=== PATIENT | male | born 1940 | race Caucasian/White ===

== ENCOUNTER 2020-05-14 10:35 | Emergency (ER) | payer OTHER ==
[~2020-05-14 10:35] MED LIST: ATOR10TA70 PO; ISOS30TA6 PO; METO25TA6 PO; METO50TA17 PO; NITR0.4T SL; OMEP40CA13 PO; TEMA15CA PO
[2020-05-14 10:55] VITALS: BP 137/88
== END 2020-05-14 12:36 | disposition home or self-care (01) ==
LOC: ER 10:36
DX: M25.511 Pain in right shoulder (principal); I10 Essential (primary) hypertension; G89.29 Other chronic pain; Z86.69 Personal history of other diseases of the nervous system and sense organs; Z98.890 Other specified postprocedural states; Z79.899 Other long term (current) drug therapy
CPT/HCPCS: 73060; 99283

== ENCOUNTER 2020-07-27 17:26 | Emergency (ER) | payer OTHER, MEDICARE ==
[~2020-07-27] VITALS: Ht 172.7 cm; Wt 115.9 kg
[2020-07-27] MEDS ORDERED: acetaminophen 325mg tablet PO STA (17:45)
[2020-07-27 18:02] LABS: BASOPHILS % (AUTO) 0.2 % (0-1); EOSINOPHILS % (AUTO) 0.1 % (0-6); HEMATOCRIT 44.4 % (42.0-52.0); HEMOGLOBIN 15.3 g/dl (14.0-17.9); LYMPHOCYTES # (AUTO) 0.9 X10'3 (1.1-4.8); LYMPHOCYTES % (AUTO) 18.3 % (21-51); MEAN CORPUSCULAR HEMOGLOBIN 33.7 PG (27.0-31.0); MEAN CORPUSCULAR HGB CONC 34.4 g/dL (33.0-36.5); MEAN CORPUSCULAR VOLUME 97.8 FL (78-98); MEAN PLATELET VOLUME 6.7 FL (7.4-10.4); MONOCYTES # (AUTO) 0.8 X10'3 (0-0.9); MONOCYTES % (AUTO) 16.6 % (2-12); NEUTROPHILS # (AUTO) 3.1 X10'3 (1.8-7.7); NEUTROPHILS % (AUTO) 64.8 % (42-75); PLATELET COUNT 140 X10'3 (140-440); RED BLOOD COUNT 4.54 X10'6 (4.70-6.10); RED CELL DISTRIBUTION WIDTH 13.6 % (11.5-14.5); WHITE BLOOD COUNT 4.8 X10'3 (4.5-11.0)
[2020-07-27 18:26] LABS: C-REACTIVE PROTEIN 4.14 MG/DL (0.0-0.5)
[2020-07-27 18:37] LABS: ALANINE AMINOTRANSFERASE 42 U/L (12-78); ALBUMIN 3.3 G/DL (3.4-5.0); ALBUMIN/GLOBULIN RATIO 0.8 (1.1-1.5); ALKALINE PHOSPHATASE 69 IU/L (46-116); ANION GAP 11 (8-16); ASPARTATE AMINO TRANSFERASE 37 U/L (10-37); BILIRUBIN,TOTAL 0.8 MG/DL (0.1-1.0); BLOOD UREA NITROGEN 15 MG/DL (7-18); BUN/CREATININE RATIO 16.7 (5.4-32.0); CALCIUM 8.2 MG/DL (8.5-10.1); CHLORIDE 101 MMOL/L (99-107); GLUCOSE 100 MG/DL (70-104); MAGNESIUM 1.8 MG/DL (1.5-2.4); SODIUM 137 MMOL/L (135-145); TOTAL CARBON DIOXIDE 24.6 MMOL/L (24-32); TOTAL PROTEIN 7.2 G/DL (6.4-8.2); eGFR 81 ML/MIN
[2020-07-27 18:59] LABS: ANISOCYTOSIS FEW; PLATELET ESTIMATE NORMAL; TOTAL CELLS COUNTED 100; TOXIC GRANULATION 2+
[2020-07-27 20:29] LABS: D-DIMER 0.32 MG/L FEU (0-0.50)
[2020-07-27 20:40] LABS: PARTIAL THROMBOPLASTIN TIME 30 SECONDS (22-32)
[2020-07-27 20:59] LABS: TROPONIN I < 0.04 NG/ML (0.0-0.05)
[2020-07-27] MEDS ORDERED: BAMLANIVIMAB INJECTION 700 MG in normal saline 250ml IV soln 180 ML IV ONE (21:20)
[2020-07-27] MEDS ORDERED: BAMLANIVIMAB INJECTION 700 MG in normal saline 250ml IV soln 250 ML IV ONE (21:25)
[2020-07-27] MEDS ORDERED: dexamethasone 4mg/ml inj IV STA (21:35)
[2020-07-27] MEDS ORDERED: azithromycin 250mg tablet PO ONE (21:35)
[2020-07-27] MEDS ORDERED: AZIT-31 PO (21:39)
[2020-07-27] MEDS ORDERED: DEXA6TAB6 PO (21:39)
--- NOTE | 2020-07-28 02:56 | NUR ---
pt awaiting transport from [facility], expected around 5 am. Pt is 92% right now on RA. VSS.
--- NOTE | 2020-07-28 06:04 | NUR ---
pt updated that [facility] to be here around 0645. pt reports nausea and some abd pain. States he has been having the abd pain over a week. [facility] at his visit with [facility] and he states "they just stuck that thing up my nose and sent me here". I reported to him there is nothing in the MD notes about his abd pain.
--- NOTE | 2020-07-28 06:08 | NUR ---
[facility]
[2020-07-28] MEDS ORDERED: ondansetron/PF 4mg/2ml inj IV ONE (06:10)
[2020-07-28 06:30] VITALS: BP 132/75
--- NOTE | 2020-07-28 07:00 | NUR ---
[facility] here but will not take pt home due to pt being +covid. Non-emergent EMS will be arranged.
== END 2020-07-28 09:18 | disposition home or self-care (01) ==
LOC: ER 17:27
DX: U07.1 COVID-19 (principal); J12.89 Other viral pneumonia; I48.91 Unspecified atrial fibrillation; I10 Essential (primary) hypertension; G89.29 Other chronic pain; Z86.69 Personal history of other diseases of the nervous system and sense organs; Z72.89 Other problems related to lifestyle; Z60.2 Problems related to living alone; Z98.890 Other specified postprocedural states; Z79.899 Other long term (current) drug therapy
CPT/HCPCS: 36415; 71045; 80053; 82728; 83605; 83615; 83735; 84145; 84484; 85007; 85025; 85379; 85384; 85610; 85730; 86140; 87040; 93005; 96374; 96375; 99291; J1100; J2405; J7050; M0239; 96365; 99285

== ENCOUNTER 2024-12-01 19:41 | Inpatient (IN) | payer OTHER, MEDICARE ==
[~2024-12-01] VITALS: Ht 175.3 cm; Wt 119.5 kg
[~2024-12-01 19:41] MED LIST changes: +ACET325C6 PO; +ASPI81TA52 PO; +CALC300T4 PO; +CHOL200074 PO; +FAMO20TA8 PO; +HYDR-3972 PO; +IPRA3AMP31 NEB; -ISOS30TA6 PO; +LORA-268 PO; -METO25TA6 PO; -METO50TA17 PO; +METO50TA7 PO; +MORP20CA17 PO; -OMEP40CA13 PO; +ONDA-103 PO; +SENN-360 PO; -TEMA15CA PO; +TRAZ-251 PO
--- NOTE | 2024-12-01 19:47 | ELECTROCARDIOGRAPH REPORT ---
[facility] Test Date: 2024-12-01 Test Time: 19:46:03 Pat Name: NATALI HOUGH Department: [facility]- Patient ID: [id number] Room: [place] [id number] Gender: M Bond Runner: : 1940 Requested By: REJI DE LEON Order Number: [id number] Reading MD: Dr. Dax Goodman Measurements Intervals [place] Rate: 154 P: 0 SC: 99 QRS: -81 QRSD: 111 T: 98 QT: 274 QTc: 439 Interpretive Statements Supraventricular tachycardia Multiform ventricular premature complexes Left anterior fascicular block Anterior infarct, old Repolarization abnormality, prob rate related Baseline wander in lead(s) V3 Electronically Signed On 12-02-2024 15:46:[address] Dax Goodman Please click the below link to view image of tracing.
--- NOTE | 2024-12-01 20:00 | Physician Documentation ---
History of Present Illness ~ Chief Complaint: See Chief Complaint Stated Complaint: SEPSIS Time Seen by MD: 19:50 Primary Medical Doctor: [facility] HPI Patient presents for mobile rehab for lethargy, abdominal pain, fever. Patient was DNR DNI. It was reported that has some degree of imaging was performed with concern of small-bowel obstruction at sending facility. EMS reports watery stools. Patient it was responding appropriately but it was certainly lethargic. Poor historian. History of atrial fibrillation with hypotension and tachycardia associated with AFib RVR as was well as fever upon arrival. Medication Reconciliation Allergies: Coded Allergies: No Known Allergies (Unverified , 08/03/23) Scheduled Aspirin (Aspirin EC), 1 TAB PO DAILY, (Reported) Atorvastatin Calcium (Atorvastatin Calcium), 1 TAB PO HS, (Reported) Cholecalciferol (Vitamin D), 1 CAP PO DAILY, (Reported) Cranberry Fruit (Cranberry), 2 TAB PO HS, (Reported) Duloxetine Hcl* (Cymbalta*), 1 CAP PO DAILY, (Reported) Famotidine (Famotidine), 1 TAB PO HS, (Reported) Ipratropium/Albuterol Sulfate (Duoneb 2.5-0.5 Mg/3 Ml Soln), 1 VIAL NEB Q12H, (Reported) Nitroglycerin (Nitrostat), 1 TAB SL UD, (Reported) Omeprazole (Omeprazole), 1 CAP PO HS, (Reported) Prednisone* (Prednisone*), 2 TAB PO DAILY, (Reported) Sennosides (Senna), 2 TAB PO HS, (Reported) Scheduled PRN Acetaminophen (Tylenol), 2 CAP PO Q6H PRN PRN for pain, (Reported) Bisacodyl (Dulcolax), 1 SUPP RC Q24H PRN for constipation, (Reported) Calcium Carbonate* (Oscal*), 1 TAB PO Q4H PRN for indigestion/dyspepsia, (Reported) Docusate Sodium (Colace), 2 CAP PO Q12H PRN for constipation, (Reported) Hydroxyzine Hcl* (Atarax*), 1 TAB PO Q6H PRN for ITCHING, (Reported) Morphine Sulfate Tab* (Morphine Tab*), 0.5 TAB PO Q8H PRN for pain, (Reported) Ondansetron HCl (Ondansetron HCl), 1 TAB PO Q6H PRN PRN for nausea/vomiting, (Reported) Polyethylene Glycol 3350 (Miralax), 17 GM PO PRN PRN for constipation, (Reported) Discontinued Medications Calcium Carbonate* (Tums*), 1,000 MG PO Q6H, (Reported) Discontinued Reason: patient no longer taking Cholecalciferol (Vitamin D3) (Vitamin D3), 1 CAP PO DAILY, (Reported) Discontinued Reason: patient no longer taking Hydrocodone Bit/Acetaminophen (Hydrocodon-Acetaminophn 10-325 tablet), 2 TABLET PO Q6H PRN for moderate or severe pain 4-10, (Reported) Discontinued Reason: patient no longer taking Lorazepam (Ativan), 1 TAB PO Q12H PRN PRN for anxiety, (Reported) Discontinued Reason: patient no longer taking Metoprolol Succinate* (Toprol Xl*), 1 TAB PO DAILY, (Reported) Discontinued Reason: patient no longer taking Morphine Sulfate (Morphine Sulfate ER), 1 CAP PO DAILY, (Reported) Discontinued Reason: patient no longer taking Trazodone HCl (Trazodone HCl), 0.5 TAB PO HS, (Reported) Discontinued Reason: patient no longer taking Past Medical History Past Medical History: Seizures, Atrial Fibrillation, High Cholesterol, Hypertension, COPD, Sleep Apnea, Pancreatitis, Chronic Pain, Chronic Back Pain Past Surgical History: orthopedic surgeries, other Other Past Surgical History: Angiogram, Marci Placement Patient History: (CAD) Coronary arteriosclerosis FATHER, Onset:60 years & older (CHF) Congestive heart failure FATHER, Onset:60 years & older (CVA) Cerebrovascular accident MOTHER, Onset:60 years & older Alzheimer's disease MOTHER, Onset:60 years & older Other Past Family History: NONCONTRIBUTORY Alcohol Use: Sober Drug Use: none Lives with: Alone Lives In: Home Occupation: retired Review of Systems ROS Review of systems limited secondary to patient's clinical status Physical Exam Vital Signs: Temperature: 101.3, Source: Axillary, Heart Rate: 71, Respiratory Rate: 19, BP: 102/67, Pulse Oximetry: 95, Weight: 92.000 Oxygen Flow Rate: 6.0 Physical Exam General: Patient is awake, lethargic, responds to questions with yes or no only. Does endorse pain but it was not localized Head: Normocephalic and atraumatic. Eyes: Conjunctival normal. EOMI. PERRL. ENT: Mucous membranes moist. Neck: Supple, trachea is midline. Chest: Clear to auscultation bilaterally without rales, rhonchi, or wheezes. There is no accessory muscle use or retractions. Cardiac: Tachycardic irregular without murmurs, gallops, or rubs. Abd: Soft, nondistended, nontender, with normoactive bowel sounds. No guarding, rebound, or rigidity. Progress Results/Orders Results/Orders Orders - JESE DURAN MD Chest,Single View (12/01/24 20:01) Monitor (12/01/24 19:43) Saline Lock (12/01/24 19:43) Oxygen (12/01/24 19:43) Electrocardiogram (12/01/24 19:43) Straight Cath For Urine Sample (12/01/24 19:43) Ct Chest Abdomen Pelvis (12/01/24 20:40) Page Hospitalist (12/01/24 23:11) Fill Out Med Reconciliation (12/01/24 23:11) Completed Orders - JESE DURAN MD Chest,Single View (12/01/24 20:01) Cbc/Diff (12/01/24 19:43) PBNP (12/01/24 19:43) Electrocardiogram (12/01/24 19:43) CMP (12/01/24 19:43) Hs Troponin I W Calculations (12/01/24 19:43) Hs Troponin I W Calculations (12/01/24 21:43) Hs Troponin I W Calculations (12/01/24 22:43) Culture Blood (12/01/24 19:43) Procalcitonin (12/01/24 19:43) Lacticsepsis (12/01/24 19:43) Normal Saline 1000ml (Sodium Chloride 10 (12/01/24 20:00) Acetaminophen 1,000mg/100ml Iv (Ofirmev (12/01/24 20:00) Ct Chest Abdomen Pelvis (12/01/24 20:40) Ceftriaxone/X7s-[place] 1gm (Rocephin 1 (12/01/24 20:05) Man Diff (12/01/24 19:52) C Diff Toxin (12/01/24 20:19) Normal Saline 1000ml (Sodium Chloride 10 (12/01/24 20:35) MG (12/01/24 19:52) Ua W/Microscopic, Cult If Ind (12/01/24 20:45) Cult Urine + [place] Ct (12/01/24 21:14) Potassium Cl 40meq/1/2ns 520ml ([place] (12/01/24 21:21) Lactic,2hr (12/01/24 21:33) Piperacillin/Tazo 3.375gm/50ml (Zosyn 3. (12/01/24 23:15) Vancomycin Inj. (Vancomycin Iv) (12/01/24 23:22) Hgb A1c (12/01/24 19:52) Laboratory Tests Test 12/01/24 19:52 12/01/24 20:45 12/01/24 21:34 12/01/24 21:38 White Blood Count 40.4 *H Red Blood Count 5.12 Hemoglobin 16.0 Hematocrit 48.8 Mean Corpuscular Volume 95.5 Mean Corpuscular Hemoglobin 31.2 H Mean Corpuscular Hemoglobin Concent 32.7 L Red Cell Distribution Width 14.8 H Platelet Count 233 Mean Platelet Volume 8.4 Neutrophils (%) (Auto) 94.3 H Lymphocytes (%) (Auto) 1.2 L Monocytes (%) (Auto) 4.0 Eosinophils (%) (Auto) 0 Basophils (%) (Auto) 0.5 Neutrophils # (Auto) 38.1 H Lymphocytes # (Auto) 0.5 L Monocytes # (Auto) 1.6 H Eosinophils # (Auto) 0.0 Basophils # (Auto) 0.2 CBC Comment Differential Total Cells Counted 100 Neutrophils % (Manual) 92.0 H Band Neutrophils % 2.0 Lymphocytes % (Manual) 1.0 L Monocytes % (Manual) 4.0 Basophils % (Manual) 1.0 Platelet Estimate Normal Red Blood Cell Morphology Normal Basophilic Stippling Sodium Level 144 Potassium Level 2.7 *L Chloride Level 103 Carbon Dioxide Level 25.4 Anion Gap 16 Blood Urea Nitrogen 43 H Creatinine 2.20 H Estimated GFR/1.73 m2 29 BUN/Creatinine Ratio 19.5 Glucose Level 121 H Hemoglobin A1c 5.3 Lactic Acid Level 9.0 *H 6.7 *H Calcium Level 10.1 Magnesium Level 2.0 Total Bilirubin 1.5 H Aspartate Amino Transf (AST/SGOT) 41 H Alanine Aminotransferase (ALT/SGPT) 54 Alkaline Phosphatase 257 H Troponin I High Sensitivity 577 *H 430 *H Pro-B-Type Natriuretic Peptide 5610 H Total Protein 7.4 Albumin 2.7 L Globulin 4.7 H Albumin/Globulin Ratio 0.6 L Procalcitonin 44.23 H Chemistry Comments Urine Specimen Description Cln catch midstream Urine Color Yellow Urine Clarity Cloudy Urine pH 6.0 Urine Specific [place] >=1.030 Urine Protein >=300 H Urine Glucose (UA) Negative Urine Ketones Trace H Urine Occult Blood Small Urine Nitrite Negative Urine Bilirubin Negative Urine Urobilinogen 4.0 H Urine Leukocyte Esterase Negative Urine RBC 3-10 Urine WBC 5-10 H Urine Squamous Epithelial Cells None seen Urine Bacteria 1+ Urine Mucus Many Urine Culture Indicated Indicated Volume Urine Centrifuged 10 ml Urine Comment Troponin I High Sens Percent Delta 25 Troponin I Hi Sens Absolute Change -147 Test 12/01/24 22:45 Troponin I High Sensitivity 448 *H Troponin I High Sens Percent Delta 4 Troponin I Hi Sens Absolute Change 18 Microbiology Date/Time Source Procedure Growth Status 12/01/24 21:14 Urine Clean Catch Midstream Urine Culture - Final NO GROWTH AFTER 2 DAYS Complete EKG/XRAY/CT/US/VASC/MRI EKG : Additional Comment EKG interpreted by myself shows time of 1946, rate 154, AFib RVR, left axis deviation, nonspecific ST-T changes Chest X-Ray : Additional Comments Exam: CHEST,SINGLE VIEW Clinical History CP Comparison None Technique: A single AP/PA chest radiograph was provided for review. Without Contrast NATALI HOUGH, [id number] FINDINGS: Lungs: Hypoexpanded lungs without pneumothorax. There is no significant pleural effusion. Heart: Enlarged. Mediastinum: Within normal limits. Vasculature: Pulmonary edema. Tubes/lines: None. Osseous structures: No evidence for acute fracture. Surgical clips in the right upper quadrant, consistent with prior cholecystectomy. IMPRESSION: Low lung volumes. Cardiomegaly. Pulmonary edema. This report was electronically signed by Jay Muse MD on 12/01/2024 9:22:[address] : Impression Exam: CT CHEST ABDOMEN PELVIS Clinical History fever, abd pain Comparison CT ABD/PEL on 08/04/2023, 748 images. Technique: Contiguous axial CT images of the chest, abdomen, and pelvis without intravenous contrast administration. Coronal and sagittal reformation was performed. All CT scans at this medical facility are performed using dose modulation techniques as appropriate to a performed exam including the following: Automated exposure control was utilized; adjustment of the mA and/or kV according to patient size; and use of iterative reconstruction technique. All CT studies are reported to the Dose Index Registry of the [employer]. Without Contrast Radiation Dose: CTDI (mGy): 26.09 31.39; DLP (mGy-cm): 2561.08 NATALI HOUGH, [id number] Findings: Both lung bases show moderate atelectasis No pneumothorax or pleural effusion is present. The trachea and central bronchi are patent. The heart is not enlarged. The coronary arteries show mild calcified atherosclerosis. No pericardial effusion or lymphadenopathy is present. The thoracic aorta shows normal course and diameter. The lack of intravenous contrast limits the evaluation of the solid organs. The liver, gallbladder, spleen, both adrenal glands, both kidneys, and pancreas show normal size and shape. No hydronephrosis or ureteral stone is present. The stomach, small bowel, and colon show normal caliber and wall thickness. The appendix is normal. No free air, free fluid, inflammatory changes, or lymphadenopathy is in the abdomen or pelvis. The abdominal aorta shows normal course and diameter. The urinary bladder is decompressed and shows mild diffuse wall thickening. 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 No acute fracture or bony destructive lesion is in the imaged portion of the skeleton. Impression: 1. Mild urinary bladder wall thickening may be due to incomplete distention or cystitis. Please correlate clinically. 2. Overall stable probable left pelvic old healed fractures and left hip degenerative changes. 3. No other acute abnormality. This report was electronically signed by Dorian Lerner MD on 12/01/2024 10:45:22 PM. Medical Decision Making Findings Patient presented to the emergency room tachycardic and hypotensive. Differentials included but are not limited to sepsis, dehydration, acute kidney injury, metabolic encephalopathy therefore emergent labs and imaging indicated. Labs significant for elevated troponins and significant lactic acidosis. IV fluids initiated. It is thought that elevated troponins likely secondary to sepsis. EKG reassuring for no ST elevation. Significantly low hypo kalemia and has been replaced IV. Unknown source for patient's sepsis. IV antibiotics initiated as well as 30 milliliters/kilogram of IV fluids. Patient's heart rate is responding to antipyretics and IV fluids. Patient remains hypotensive and waste water plant operator was consulted however waste water plant operator does not feel patient requires ICU at this time. Departure Impression: Primary Impression: Sepsis Additional Impressions: Elevated troponin Lactic acidosis Metabolic encephalopathy Referrals: NO PRIMARY CARE PROVIDER (PCP) Critical Care Note Total Time (mins): 109 Critical Care Note The very real possibility of a deterioration of this patient's condition required the highest level of my preparedness for sudden, emergent intervention. I provided critical care services, which included medication orders, frequent reevaluations of the patient's condition and response to treatment, ordering and reviewing test results, and discussing the case with various consultants. Excludes time spent performing separately billable procedures. The critical care time associated with the care of the patient was 109 minutes not counting procedures Signature Scribe Signature: No scribe Attestation: The note accurately reflects work and decisions made by me.Jese Duran MD 12/07/24 18:24 JESE DURAN MD December 01, 2024 20:00
[2024-12-01 20:06] LABS: BASOPHILS # (AUTO) 0.2 X10'3 (0-0.2); BASOPHILS % (AUTO) 0.5 % (0-1); EOSINOPHILS % (AUTO) 0 % (0-6); HEMATOCRIT 48.8 % (42.0-52.0); LYMPHOCYTES # (AUTO) 0.5 X10'3 (1.1-4.8); LYMPHOCYTES % (AUTO) 1.2 % (21-51); MEAN CORPUSCULAR HEMOGLOBIN 31.2 PG (27.0-31.0); MEAN CORPUSCULAR HGB CONC 32.7 g/dL (33.0-36.5); MEAN CORPUSCULAR VOLUME 95.5 FL (78-98); MEAN PLATELET VOLUME 8.4 FL (7.4-10.4); MONOCYTES # (AUTO) 1.6 X10'3 (0-0.9); NEUTROPHILS # (AUTO) 38.1 X10'3 (1.8-7.7); NEUTROPHILS % (AUTO) 94.3 % (42-75); PLATELET COUNT 233 X10'3 (140-440); RED BLOOD COUNT 5.12 X10'6 (4.70-6.10); RED CELL DISTRIBUTION WIDTH 14.8 % (11.5-14.5)
[2024-12-01] MEDS: acetaminophen 1,000mg/100ml IV 100 ML IV ONE (20:12)
[2024-12-01] MEDS: normal saline 1000ml 1,000 ML IV ONE (20:13)
[2024-12-01 20:16] LABS: WHITE BLOOD COUNT 40.4 X10'3 (4.5-11.0)
[2024-12-01 20:25] LABS: ALANINE AMINOTRANSFERASE 54 U/L (12-78); ALBUMIN 2.7 G/DL (3.4-5.0); ALBUMIN/GLOBULIN RATIO 0.6 (1.1-1.5); ALKALINE PHOSPHATASE 257 IU/L (46-116); ANION GAP 16 (8-16); ASPARTATE AMINO TRANSFERASE 41 U/L (10-37); BILIRUBIN,TOTAL 1.5 MG/DL (0.1-1.0); BLOOD UREA NITROGEN 43 MG/DL (7-18); BUN/CREATININE RATIO 19.5 (10.0-20.0); CALCIUM 10.1 MG/DL (8.5-10.1); CHLORIDE 103 MMOL/L (99-107); GLUCOSE 121 MG/DL (70-104); PRO BRAIN NATRIURETIC PEPTIDE 5610 PG/ML (0-450); SODIUM 144 MMOL/L (135-145); TOTAL CARBON DIOXIDE 25.4 MMOL/L (24-32); TOTAL PROTEIN 7.4 G/DL (6.4-8.2); eCRCL 25 ML/MIN; eGFR 29 ML/MIN
[2024-12-01 20:33] LABS: POTASSIUM 2.7 MMOL/L (3.5-5.1)
[2024-12-01 20:41] LABS: PLATELET ESTIMATE NORMAL; TOTAL CELLS COUNTED 100
[2024-12-01 21:00] LABS: BILIRUBIN,URINE NEGATIVE (Neg); CLARITY,URINE CLOUDY (Clear); COLOR,URINE YELLOW (Yellow); GLUCOSE, URINE NEGATIVE (Neg); KETONES,URINE TRACE mg/dl (Neg); LEUKOCYTE ESTERASE ,URINE NEGATIVE (Neg); OCCULT BLOOD,URINE SMALL (Neg); PROTEIN,URINE >=300 mg/dl (Neg)
[2024-12-01] MEDS: normal saline 1000ML IV soln IVB ONE (21:03)
[2024-12-01] MEDS: CefTRIAXone/D5W-Rocephin 1gm 50 ML IV ONE (21:03)
[2024-12-01 21:07] LABS: NITRITES, URINE NEGATIVE (Neg); UA COLLECTION TYPE CLN CATCH MIDSTREAM
[2024-12-01 21:13] LABS: BACTERIA,URINE 1+ /HPF (Neg); MUCUS STRANDS MANY /LPF (Neg); SQUAMOUS EPITHELIAL CELL,UR NONE SEEN /LPF (FEW)
--- NOTE | 2024-12-01 21:24 | RADIOLOGY REPORT ---
Clinical History CP Comparison None Technique: A single AP/PA chest radiograph was provided for review. Without Contrast NATALI HOUGH, [id number] FINDINGS: Lungs: Hypoexpanded lungs without pneumothorax. There is no significant pleural effusion. Heart: Enlarged. Mediastinum: Within normal limits. Vasculature: Pulmonary edema. Tubes/lines: None. Osseous structures: No evidence for acute fracture. Surgical clips in the right upper quadrant, consistent with prior cholecystectomy. IMPRESSION: Low lung volumes. Cardiomegaly. Pulmonary edema. This report was electronically signed by Jay Muse MD on 12/01/2024 9:22:03 PM.
[2024-12-01] MEDS: potassium Cl 40MEQ/1/2NS 520ml 520 ML IV SCH (21:36)
--- NOTE | 2024-12-01 22:48 | RADIOLOGY REPORT ---
Clinical History fever, abd pain Comparison CT ABD/PEL on 08/04/2023, 748 images. Technique: Contiguous axial CT images of the chest, abdomen, and pelvis without intravenous contrast administration. Coronal and sagittal reformation was performed. All CT scans at this medical facility are performed using dose modulation techniques as appropriate t o a performed exam including the following: Automated exposure control was utilized; adjustment of th e mA and/or kV according to patient size; and use of iterative reconstruction technique. All CT studies are reported to the Dose Index Registry of the [employer]. Without Contrast Radiation Dose: CTDI (mGy): 26.09 31.39; DLP (mGy-cm): 2561.08 NATALI HOUGH, [id number] Findings: Both lung bases show moderate atelectasis No pneumothorax or pleural effusion is present. The trache a and central bronchi are patent. The heart is not enlarged. The coronary arteries show mild calcified atherosclerosis. No pericardi al effusion or lymphadenopathy is present. The thoracic aorta shows normal course and diameter. The lack of intravenous contrast limits the evaluation of the solid organs. The liver, gallbladder, spleen, both adrenal glands, both kidneys, and pancreas show normal size and shape. No hydronephrosis or ureteral stone is present. The stomach, small bowel, and colon show normal caliber and wall thickness. The appendix is normal. No free air, free fluid, inflammatory changes, or lymphadenopathy is in the abdomen or pelvis. The abdominal aorta shows normal course and diameter. The urinary bladder is decompressed and shows mild diffuse wall thickening. 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 No acute fracture or bony destructive lesion is in the imaged portion of the [facility]. Impression: 1. Mild urinary bladder wall thickening may be due to incomplete distention or cystitis. Please cor relate clinically. 2. Overall stable probable left pelvic old healed fractures and left hip degenerative changes. 3. No other acute abnormality. This report was electronically signed by Dorian Lerner MD on 12/01/2024 10:45:22 PM.
[2024-12-01] MEDS ORDERED: vancomycin inj 1,000 MG in normal saline 250ml IV soln 250 ML IV STA (23:11)
[2024-12-01] MEDS: piperacillin/tazo 3.375gm/50ml 50 ML IV ONE (23:23)
[2024-12-01] MEDS: vancomycin inj. 750 MG in normal saline 250ml IV soln 250 ML IV STA (23:36)
[2024-12-02] VITALS (9 sets, daily range): BP systolic 94–120; BP diastolic 58–69; PULSE 81–87; RESP 16–20; TEMP 97.7–98.4; O2SAT 93–98
[2024-12-02] MEDS ORDERED: acetaminophen 325mg tablet PO PRN (00:30)
[2024-12-02] MEDS ORDERED: magnesium Cl slow-release 64mg tablet PO PRN (00:30)
[2024-12-02] MEDS ORDERED: magnesium sulf-water 4G/100mL 100 ML IV PRN (00:30)
[2024-12-02] MEDS ORDERED: mag hydrox/Alum hydrox/simeth 30ml oral suspension PO PRN (00:30)
[2024-12-02] MEDS ORDERED: potassium Cl 20 mEq SR tablet PO PRN (00:30)
[2024-12-02] MEDS ORDERED: magnesium sulf-water 2g/50mL 50 ML IV PRN (00:30)
[2024-12-02] MEDS ORDERED: magnesium hydroxide 30ml (MOM) UD suspension PO PRN (00:30)
[2024-12-02] MEDS ORDERED: BISA10SU60 RC (00:56)
[2024-12-02] MEDS ORDERED: CHOL10006 PO (00:56)
[2024-12-02] MEDS ORDERED: POLY119P2 PO (00:56)
[2024-12-02] MEDS ORDERED: DOCU-148 PO (00:56)
[2024-12-02] MEDS ORDERED: HYDR-3686 PO (00:56)
[2024-12-02] MEDS ORDERED: PRED5TAB PO (00:56)
[2024-12-02] MEDS ORDERED: OSC500T PO (00:56)
[2024-12-02] MEDS ORDERED: CRAN450T9 PO (00:56)
[2024-12-02] MEDS ORDERED: MORP30TA PO (00:56)
[2024-12-02] MEDS ORDERED: DULO-31 PO (00:56)
[2024-12-02] MEDS ORDERED: OMEP20CA16 PO (00:56)
[2024-12-02] MEDS: PERFLUTREN PROTEIN-A MICROSPHR (Optison) 0.22 MG/ML 3ML VIAL IV ONE (01:02)
[2024-12-02] MEDS: normal saline 1000ml 1,000 ML IV SCH (01:10)
--- NOTE | 2024-12-02 01:10 | HISTORY AND PHYSICAL-Residence ---
History & Physical Providers to CC Resident Creating Document: DALY MONTE, RES ~ History of Present Illness Primary Medical Doctor: [facility] Reason for Admit\Complaint: Sepsis History of Present Illness An 84-year-old male presented with lethargy, abdominal pain and fever. Patient is confused. History is obtained from previous records and ED physician's note. He comes from [facility]. EMS reported watery stools. He presented with fever, hypotension and tachyarrhythmia in 150s. His heart rate improved with IV fluids and Tylenol. Past medical history significant for AFib, hypertension, sleep apnea, history of COVID, CAD, seizures, hyperlipidemia, chronic back pain, GERD, anxiety, depression, sleep apnea, COPD. Allergies: Coded Allergies: No Known Allergies (Unverified , 08/03/23) Home Medications Home Medications Active Reported Miralax (Polyethylene Glycol 3350) 17 Gram/Dose Powder 17 Gm PO PRN PRN dissolve in water Atarax* (Hydroxyzine HCl) 25 Mg Tablet 1 Tab PO Q6H PRN Morphine Tab* (Morphine Sulfate) 30 Mg Tablet 0.5 Tab PO Q8H PRN 5 Days Prednisone* (Prednisone) 5 Mg Tablet 2 Tab PO DAILY Cymbalta* (Duloxetine HCl) 30 Mg Capsule.dr 1 Cap PO DAILY 30 Days Cranberry (Cranberry Fruit) 450 Mg Tablet 2 Tab PO HS 30 Days Dulcolax (Bisacodyl) 10 Mg Supp.rect 1 Supp RC Q24H PRN 10 Days Colace (Docusate Sodium) 100 Mg Capsule 2 Cap PO Q12H PRN 30 Days Vitamin D (Cholecalciferol) 1,000 Unit Capsule 1 Cap PO DAILY 30 Days Oscal* (Calcium Carbonate) 500 Mg Tablet 1 Tab PO Q4H PRN 30 Days Omeprazole 20 Mg Capsule.dr 1 Cap PO HS 30 Days Duoneb 2.5-0.5 Mg/3 Ml Soln (Ipratropium/Albuterol Sulfate) 0.5 Mg-3 Mg (2.5 Mg Base)/3 Ml Ampul.neb 1 Vial NEB Q12H Tylenol (Acetaminophen) 325 Mg Capsule 2 Cap PO Q6H PRN PRN NEEDED FOR PAIN Senna (Sennosides) 8.6 Mg Tablet 2 Tab PO HS Ondansetron HCl 4 Mg Tablet 1 Tab PO Q6H PRN PRN Famotidine 20 Mg Tablet 1 Tab PO HS Aspirin EC (Aspirin) 81 Mg Tablet.dr 1 Tab PO DAILY Nitrostat (Nitroglycerin) 0.4 Mg Tab.subl 1 Tab SL UD Atorvastatin Calcium 10 Mg Tablet 1 Tab PO HS 30 Days Past Medical History Past Medical History AFib, hypertension, sleep apnea, history of COVID, CAD, seizures, hyperlipidemia, chronic back pain, GERD, anxiety, depression, sleep apnea, COPD Past Surgical History Surgical History Comment Unknown Medication history: Aspirin 81 mg daily Atorvastatin 10 mg daily Diltiazem ER 180 mg once daily Duloxetine Hydroxyzine Omeprazole Prednisone 10 mg once daily for allergic dermatitis Family History Family History: (CAD) Coronary arteriosclerosis FATHER, Onset:60 years & older (CHF) Congestive heart failure FATHER, Onset:60 years & older (CVA) Cerebrovascular accident MOTHER, Onset:60 years & older Alzheimer's disease MOTHER, Onset:60 years & older Past Social History Social History Comment Patient comes from [facility]. PMD- Dr. Kane King Patient's POLST papers at bedside. DNR/DNI. Smoking: Quit greater than 1 year Alcohol Use: Sober Drug Use: None Lives with: Alone Lives In: Home Occupation: retired ROS ROS Unable to obtain as the patient is confused. Exam Vitals: Vital Signs Date Time Temp Pulse Resp B/P (MAP) Pulse Ox O2 Delivery O2 Flow Rate FiO2 12/02/24 00:35 99.4 94 22 86/59 (68) 97 5.0 General: Elderly male, confused, not in acute distress Head: Normocephalic with an atraumatic Eyes: Pupils- 3mm, reacting to light, conjunctiva- anicteric Nose and throat: No polyps, septum- normal, red lips and tongue Neck: Supple, no lymphadenopathy, no carotid bruit Respiratory: Mild bibasilar crackles heard Cardiac: S1-S2 heard, rhythm irregular, no gallop/murmur Abdomen: non distended, no tenderness, no organomegaly, bowel sounds - heard Extremities: no clubbing, no pedal edema, no deformities, cold feet, warm hands Skin: warm and dry, no rash, no purpura Neuro: Could not be examined Diagnostic Data Last Recorded Lab Results: 12/01/24195112/01/241951 Additional Plan An 84-year-old male with past medical history of COVID, AFib, UTI sepsis, depression, anxiety, hypertension, hyperlipidemia, chronic back pain, GERD, was brought to the ED with hypotension, fever and confusion. He is being admitted into the hospital for further evaluation and management. Plan: Septic shock Unknown etiology Chest x-ray clear, no wounds on body, urinalysis negative for leukocyte esterase and nitrites. However 1+ bacteria was found. Follow up with cultures. Patient has a history of UTI with Klebsiella. Follow up with blood cultures. Follow up with echocardiogram for evidence of any vegetations. The EMS reported the patient having watery stools. Unreliable. No bowel movements in the hospital. Consider testing for C.diff if he has watery stools. WBC 40.4, procalcitonin 44.23, lactic acid 9.0 to 6.7. Temperature 101.3. Started the patient on piperacillin/tazobactam 3.375 g thrice daily and vancomycin. Blood pressure currently 89/58 with a map above 65 mmHg. He received 3 L of NS boluses in the ER. Continue NS at 100 mL/hour. Monitor urine output. Tachyarrhythmia likely SVT P waves present. Rate regular with multiple PVCs. Rate improved from 154-100. 2 g of magnesium ordered. Continue potassium replacement. Continue telemetry monitoring. Elevated troponins Likely demand ischemia Downtrending troponins. Continue to monitor. Reassess after stabilization. Hypokalemia Potassium 2.7. Continue potassium replacement. Lactic acidosis Lactic acid 9.0, improved to 6.7. Continue IV fluids and reassess. ARSH versus CKD Creatinine 2.20, BUN 43, EGFR 29. Monitor urine output. Continue IV fluids and reassess. History of hypertension Hold off on any antihypertensives until the patient stabilizes. Elevated proBNP Patient tolerating IV fluids for now. He is currently on 4 L of oxygen. Mild crackles but no pedal edema. Follow up with the echocardiogram. Code Status: DNR/DNI DVT Prophylaxis: Heparin subQ Analgesia/Sedation: Acetaminophen Lines/Tubes: PIV, Holman's catheter Nutrition: NPO until bedside swallow PT: Ordered Prognosis: Guarded Disposition: We will admit the patient into [facility]. Continue telemetry monitoring, IV fluids and antibiotics. Daly Monte MD Internal Medicine Resident PGY-1 I discussed patient with resident and agree with the plan and recommendations above. Lori Tiwari MD Tele medicine Date of Service: December 02, 2024 Billing Provider: LORI TIWARI [facility] December 02, 2024 01:10 LORI TIWARI MD December 02, 2024 04:10
[2024-12-02] MEDS: magnesium sulf-water 2g/50mL 50 ML IV ONE (01:37)
[2024-12-02 01:41] LABS: INR 1.5 INR; PROTHROMBIN TIME 14.6 SECONDS (9.0-12.0)
[2024-12-02 01:52] LABS: HEMOGLOBIN A1C 5.3 % (4.5-6.2)
--- NOTE | 2024-12-02 05:09 | RADIOLOGY REPORT ---
EXAM: CT CT HEAD HISTORY: confusion COMPARISON: None TECHNIQUE: Noncontrast axial CT images of the head were performed. Sagittal and coronal reformatted i mages were obtained. This CT exam was performed using 1 or more of the following dose reduction techn iques: Automated exposure control, adjustment of the mA and/or kv according to patient size, or the u se of iterative reconstruction techniques. Radiation Dose: CTDI volume is 58.08 mGy. Dose-length product is 1045.37 mGy*cm FINDINGS: There is mild global brain atrophy. There is moderate decreased attenuation in the periventricular wh ite matter. No intracranial hemorrhage, mass, midline shift, hydrocephalus, or evidence of acute larg e vessel infarct. There is divergent optic gaze. There are postoperative changes of bilateral catarac t extraction surgery. The paranasal sinuses are clear. The bilateral mastoid air cells and middle ea r spaces are clear. 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 No cranial fracture or scalp edema. There are multiple dental caries and lucency about the roots of multiple teeth. The te eth are not fully imaged here. IMPRESSION: 1. Global brain atrophy and chronic ischemic changes without evidence of acute intracranial process. 2. Multiple dental caries and periapical pathology. Recommend outpatient dental consultation.
[2024-12-02 06:09] LABS: BASOPHILS % (AUTO) 0 % (0-1); EOSINOPHILS % (AUTO) 0 % (0-6); HEMATOCRIT 37.9 % (42.0-52.0); HEMOGLOBIN 12.6 g/dl (14.0-17.9); LYMPHOCYTES # (AUTO) 0.9 X10'3 (1.1-4.8); LYMPHOCYTES % (AUTO) 3.6 % (21-51); MEAN CORPUSCULAR HEMOGLOBIN 31.7 PG (27.0-31.0); MEAN CORPUSCULAR HGB CONC 33.1 g/dL (33.0-36.5); MEAN CORPUSCULAR VOLUME 95.7 FL (78-98); MEAN PLATELET VOLUME 8.2 FL (7.4-10.4); MONOCYTES # (AUTO) 1.2 X10'3 (0-0.9); MONOCYTES % (AUTO) 4.8 % (2-12); NEUTROPHILS # (AUTO) 23.4 X10'3 (1.8-7.7); NEUTROPHILS % (AUTO) 91.6 % (42-75); PLATELET COUNT 137 X10'3 (140-440); RED BLOOD COUNT 3.96 X10'6 (4.70-6.10); RED CELL DISTRIBUTION WIDTH 14.8 % (11.5-14.5)
[2024-12-02 06:37] LABS: WHITE BLOOD COUNT 25.5 X10'3 (4.5-11.0)
[2024-12-02 06:41] LABS: ALANINE AMINOTRANSFERASE 52 U/L (12-78); ALBUMIN 1.7 G/DL (3.4-5.0); ALBUMIN/GLOBULIN RATIO 0.5 (1.1-1.5); ALKALINE PHOSPHATASE 163 IU/L (46-116); ANION GAP 13 (8-16); ASPARTATE AMINO TRANSFERASE 45 U/L (10-37); BILIRUBIN,TOTAL 0.6 MG/DL (0.1-1.0); BLOOD UREA NITROGEN 39 MG/DL (7-18); BUN/CREATININE RATIO 28.9 (10.0-20.0); CALCIUM 8.4 MG/DL (8.5-10.1); CHLORIDE 111 MMOL/L (99-107); CREATININE 1.35 MG/DL (0.60-1.10); GLUCOSE 166 MG/DL (70-104); POTASSIUM 3.8 MMOL/L (3.5-5.1); SODIUM 145 MMOL/L (135-145); THYROID STIMULATING HORMONE 0.33 ulU/ml (0.34-4.50); TOTAL CARBON DIOXIDE 21.3 MMOL/L (24-32); TOTAL PROTEIN 5.3 G/DL (6.4-8.2); eCRCL 41 ML/MIN; eGFR 50 ML/MIN
[2024-12-02] MEDS: piperacillin/tazo 3.375gm/50ml 100 ML IV SCH (07:19)
[2024-12-02] MEDS: pantoprazole 40 MG vial IV SCH (07:20)
[2024-12-02] MEDS: heparin, porcine 5000 units/ml vial SQ SCH (07:20)
[2024-12-02] MEDS: K and/or MAG REPLACEMENT MC SCH (08:00)
[2024-12-02] MEDS ORDERED: hydrOXYzine 25 MG tablet PO PRN (08:30)
[2024-12-02 08:40] LABS: TOTAL CELLS COUNTED 100
[2024-12-02 08:42] LABS: PLATELET ESTIMATE DECREASED
[2024-12-02] MEDS: acetaminophen 325mg tablet PO PRN (10:13)
[2024-12-02] MEDS: atorvastatin 10mg tablet PO SCH (20:23)
[2024-12-02] MEDS: normal saline 1000ml 1,000 ML IV ONE ×2 (21:03→23:17)
[2024-12-02] MEDS ORDERED: VANCOMYCIN 750MG IV in NS 250 ML IV SCH (23:00)
[2024-12-02] MEDS: vancomycin/NS 1 GM ADD-VANTAGE 250 ML IV SCH (23:35)
[2024-12-03] VITALS (10 sets, daily range): BP systolic 95–113; BP diastolic 48–69; PULSE 55–99; RESP 16–31; TEMP 97–98.4; O2SAT 16–97
--- NOTE | 2024-12-03 01:54 | ELECTROCARDIOGRAPH REPORT ---
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 JUSTIN Nugent Measurements Intervals Zachary Rate: 136 P: 2 OH: 115 QRS: -65 QRSD: 113 T: 114 QT: 300 QTc: 452 Interpretive Statements supraventricular tachycardia,? Sinus Paired ventricular premature complexes Borderline IVCD with LAD Inferior infarct, old Abnormal lateral Q waves Anterior infarct, old Electronically Signed On 12-03-2024 9:37:[address] JUSTIN Nugent Please click the below link to view image of tracing.
[2024-12-03 02:39] LABS: BASOPHILS % (AUTO) 0.2 % (0-1); EOSINOPHILS % (AUTO) 0.1 % (0-6); HEMATOCRIT 36.5 % (42.0-52.0); HEMOGLOBIN 12.6 g/dl (14.0-17.9); LYMPHOCYTES # (AUTO) 0.4 X10'3 (1.1-4.8); LYMPHOCYTES % (AUTO) 1.9 % (21-51); MEAN CORPUSCULAR HEMOGLOBIN 32.1 PG (27.0-31.0); MEAN CORPUSCULAR HGB CONC 34.4 g/dL (33.0-36.5); MEAN CORPUSCULAR VOLUME 93.5 FL (78-98); MEAN PLATELET VOLUME 8.5 FL (7.4-10.4); MONOCYTES # (AUTO) 0.8 X10'3 (0-0.9); NEUTROPHILS # (AUTO) 19.7 X10'3 (1.8-7.7); NEUTROPHILS % (AUTO) 93.8 % (42-75); PLATELET COUNT 76 X10'3 (140-440); RED BLOOD COUNT 3.91 X10'6 (4.70-6.10); RED CELL DISTRIBUTION WIDTH 14.8 % (11.5-14.5)
[2024-12-03 03:12] LABS: ALANINE AMINOTRANSFERASE 118 U/L (12-78); ALBUMIN 1.7 G/DL (3.4-5.0); ALBUMIN/GLOBULIN RATIO 0.5 (1.1-1.5); ALKALINE PHOSPHATASE 324 IU/L (46-116); ANION GAP 14 (8-16); ASPARTATE AMINO TRANSFERASE 148 U/L (10-37); BILIRUBIN,TOTAL 2.7 MG/DL (0.1-1.0); BLOOD UREA NITROGEN 41 MG/DL (7-18); BUN/CREATININE RATIO 37.3 (10.0-20.0); CALCIUM 8.1 MG/DL (8.5-10.1); CHLORIDE 115 MMOL/L (99-107); CHOL/HDL RATIO 4.4 (0.00-4.99); CHOLESTEROL 53 MG/DL (0-200); FREE T4 (FREE THYROXINE) 1.26 NG/DL (0.73-1.40); GLUCOSE 93 MG/DL (70-104); HDL CHOLESTEROL 12 MG/DL (35-60); LDL CHOLESTEROL 21 MG/DL (50-100); MAGNESIUM 1.7 MG/DL (1.5-2.4); PHOSPHORUS 1.4 MG/DL (2.3-4.5); POTASSIUM 3.2 MMOL/L (3.5-5.1); SODIUM 150 MMOL/L (135-145); TOTAL CARBON DIOXIDE 21.3 MMOL/L (24-32); TOTAL PROTEIN 4.8 G/DL (6.4-8.2); TRIGLYCERIDES 112 MG/DL (20-135); eCRCL 50 ML/MIN; eGFR 64 ML/MIN
[2024-12-03] MEDS: dextrose 5%-1/2 normal saline 1,000 ML IV SCH (03:46)
[2024-12-03 03:57] LABS: PLATELET ESTIMATE DECREASED; TOTAL CELLS COUNTED 100
[2024-12-03] MEDS: potassium Cl 40MEQ/1/2NS 520ml 520 ML IV PRN (04:53)
[2024-12-03] MEDS: magnesium sulf-water 2g/50mL 50 ML IV ONE (05:00)
[2024-12-03] MEDS: piperacillin/tazo 3.375gm/50ml 50 ML IV SCH (07:56)
[2024-12-03] MEDS: duloxetine 30mg CAPSULE.DR PO SCH (08:03)
[2024-12-03] MEDS: aspirin 81mg, enteric-coated 1 TAB TABLET.DR PO SCH (08:03)
[2024-12-03 09:04] LABS: C DIFF ANTIGEN NEGATIVE (NEGATIVE); C DIFF SPECIMEN=DIARRHEA? ACCEPTABLE; C DIFFICILE TOXINS A&B NEGATIVE (Neg)
[2024-12-03] MEDS ORDERED: vancomycin/NS 1 GM ADD-VANTAGE 250 ML IV SCH (11:00)
--- NOTE | 2024-12-03 11:41 | PROGRESS NOTE- Residence ---
Progress Note - Resident Providers to CC Resident Creating Document: BEATRIZ RASMUSSEN RES ~ Central Line/PICC still needed: N\A Holman-Non Protocol Holman Indications Met/Not Met: F/C Indications Not Met Antibiotic Timeout Antibiotic Ordered?: Yes Subjective Patient continues to complain of abdominal pain. He has about two episodes of diarrhea today. Objective Vital Signs Date Time Temp Pulse Resp B/P (MAP) Pulse Ox O2 Delivery O2 Flow Rate FiO2 12/03/24 08:00 16 96 Nasal Cannula 4.0 32 12/03/24 06:30 97 12/03/24 06:00 97.7 101/56 (71) Result Diagram: 12/03/2422612/03/24226 General: Awake and Alert, no acute distress. HEENT: Conjunctiva pink, Sclera clear, Mucus Membranes moist. Resp: Unlabored. Lungs clear to auscultation bilaterally. Heart: Regular Rate and rhythm, normal S1 and S2 without murmur, rub or gallop. Abdomen: Diffusely tender. Bowel sounds present. Increased tenderness in the right upper quadrant Extremities: Bilateral 2+ pitting edema Skin: Warm and Dry. Coagulation Studies Laboratory Tests Test 12/02/24 01:11 Prothrombin Time 14.6 SECONDS (9.0-12.0) H INR International Normalized Ratio 1.5 INR Coagulation Comments Assessment Assessment 84-year-old male patient with a past medical history of hypertension, sleep apnea, CAD, heart failure with reduced EF, allergies on chronic prednisone treatment, recurrent UTIs, and chronic constipation presents to the hospital from [facility] as a long-term resident with fever, hypotension, tachycardia, and diarrhea. Reports that symptoms had begun three days ago prior to his patient to the hospital. He is currently being evaluated and managed for severe sepsis. Plan Plan 1. Severe sepsis: Source likely secondary to UTI, CPAP and GI 12/02/2024: WBC 40.4, procalcitonin 44.23, lactic acid 9.0 to 6.7. Temperature 101.3 Chest x-ray clear, no wounds on body, urinalysis negative for leukocyte esterase and nitrites. However 1+ bacteria was found. Follow up with cultures. History of UTI with multiple drug-resistant Klebsiella Follow up with blood cultures. Follow up with echocardiogram for evidence of any vegetations. Ongoing watery stools; C difficile testing ordered Treatment with IV Rocephin and vancomycin Blood pressure currently 89/58 with a map above 65 mmHg. He received 3 L of NS boluses in the ER. Continue NS at 100 mL/hour. 12/03/2024: - leukocytosis improving, decreased to 20k - no further reported fevers. - overnight lactic acid significantly increased to 5.7, requiring 2 L of IV fluid boluses lactic acid decreased down to 2.4. Hypernatremia secondary to above. Patient currently on D5 half NS. Repeat lactic acid - blood cultures positive for Gram-positive cocci in pairs and chains; also positive for Gram-negative rods - discontinue vancomycin today. Continue Zosyn - C diff stool negative. Culture of stool, WBCs in stool awaited - follow repeat chest x-ray as the initial chest x-ray revealed no significant findings. Initial CT scan however revealed bilateral basilar ground-glass opacities. - repeat swallow eval to be performed for patient's risk of aspiration; we will modify diet accordingly. For now full liquid diet until next swallow eval 2. Heart failure with reduced ejection fraction: In no acute exacerbation ProBNP 5610 - currently on 3-4 L oxygen - cautious IV fluid resuscitation for sepsis. Closely monitor increasing oxygen requirements. - follow repeat chest x-ray. If fluid overload, we will administer one dose of IV Lasix - continue close monitoring of oxygen requirements 3. Transaminitis: New onset Likely hypotension induced Bilirubin elevated to 2.7, AST greater than ALT by less than 3 times, elevated alkaline phosphatase Bilirubin contributed by direct elevation Follow up abdominal ultrasound for CBD and gallbladder 4. Subclinical hypothyroidism: TSH 0.3, normal free T4 Repeat in three months 5. Hyponatremia: Hyperchloremia with low bicarb Secondary to IV fluid resuscitation - continuing D5 half NS. Decreased rate from 150 cc/hour to 100 cc/hour - repeat CMP and we will slowly decrease rate further in view of underlying heart failure with reduced EF 6. Chronic steroid use disorder: - 10 mg p.o. daily - we will restart the dose to prevent withdrawal 7. Thrombocytopenia: Heparin held today morning; continue SCDs Multifactorial etiology including acute ischemic liver injury, severe sepsis induced or heparin induced Continue monitoring at this time. Patient is not ambulatory due to unknown reasons. He has significant dependent edema secondary to the same. Lines: PIV Code status: DNR DVT prophylaxis: SCDs Beatriz Rasmussen PGY2, Internal medicine resident Date of Service: December 03, 2024 Billing Provider: ALBERTO JIMENEZ MD Common Visit Codes: 22875-[id number] INP/OBS CARE(HIGH) BEATRIZ RASMUSSEN, NILES December 03, 2024 11:41 ALBERTO JIMENEZ MD December 03, 2024 21:23
--- NOTE | 2024-12-03 13:10 | RADIOLOGY REPORT ---
INDICATION: Abdominal pain TECHNIQUE: Multiple real-time sonographic images of the abdomen were obtained. COMPARISON: None FINDINGS: The liver is heterogeneous in echogenicity. The liver measures 16cm. No intrahepatic bilia ry ductal dilatation is noted. The gallbladder wall measures 0.3 cm and is unremarkable. No gallstones or sludge is seen. The commo n duct measures 0.4 cm and is unremarkable. No pericholecystic fluid is noted. Gallbladder is disten ded. The right kidney measures 11cm. No hydronephrosis. The pancreas is not well visualized due to obscuration from bowel gas. The visualized portions of the IVC and aorta are grossly unremarkable. IMPRESSION: Hepatic steatosis. Distended gallbladder.
--- NOTE | 2024-12-03 13:37 | RADIOLOGY REPORT ---
CHEST RADIOGRAPH Indication: SOB Technique: Single frontal view of the chest was obtained Comparison: DI CHEST,SINGLE VIEW on DOS: 12/01/24, DI CHEST,SINGLE VIEW on DOS: 08/03/23, CHEST,SINGLE EW on DOS: 07/27/20 FINDINGS: Lines and Tubes: None Lungs: No focal consolidation. Pleura: No effusion. No pneumothorax. Cardiomediastinal contours: Unremarkable Bones: No acute osseous abnormality. IMPRESSION: No acute cardiopulmonary disease.
[2024-12-03 16:09] LABS: ALANINE AMINOTRANSFERASE 95 U/L (12-78); ALBUMIN 1.5 G/DL (3.4-5.0); ALBUMIN/GLOBULIN RATIO 0.4 (1.1-1.5); ALKALINE PHOSPHATASE 294 IU/L (46-116); ANION GAP 9 (8-16); ASPARTATE AMINO TRANSFERASE 97 U/L (10-37); BILIRUBIN,TOTAL 3.7 MG/DL (0.1-1.0); BLOOD UREA NITROGEN 31 MG/DL (7-18); BUN/CREATININE RATIO 36.5 (10.0-20.0); CALCIUM 7.9 MG/DL (8.5-10.1); CHLORIDE 114 MMOL/L (99-107); CREATININE 0.85 MG/DL (0.60-1.10); GLUCOSE 176 MG/DL (70-104); POTASSIUM 3.3 MMOL/L (3.5-5.1); SODIUM 147 MMOL/L (135-145); TOTAL CARBON DIOXIDE 24.5 MMOL/L (24-32); TOTAL PROTEIN 4.9 G/DL (6.4-8.2); eCRCL 65 ML/MIN; eGFR 86 ML/MIN
--- NOTE | 2024-12-03 16:33 | CARDIOLOGY REPORT ---
APPROVED REPORT EXAM: Comprehensive 2D, Doppler, and color-flow Echocardiogram. Patient Location: 3019 Blood Pressure: 95/58 mmHg Heart Rate: 93 bpm Rhythm: NSR Indications CHF AFIB Hypertension COPD No it project lead Previous echo 08/05/23 [facility] 50% EF 2D Dimensions LA Diam4.2 cm IVSd 1.4 (0.7-1.1cm) LVDd 5.2 cm PWd 1.5 (0.7-1.1cm) IVSs 1.6 (0.8-1.2cm) LVDs 4.1 (2.5-4.0cm) Aortic Root(2D) 3.8 cm PWs 1.5 (0.8-1.2cm) LVOT Diameter 2.26 (1.8-2.4cm) LVEF(%) 44.3 (>50%) FS (%) 22.1 % SV 58.2 ml CO 4.4 L/min M-Mode Dimensions MV EPSS 3.2 (<0.5cm) Aortic Valve AoV Peak Haim. 259.9 cm/s AoV VTI 56.2 cm AO Peak GR. 27.0 mmHg AO Mean GR. 16 mmHg LVOT VTI 17.77 cm LVOT Peak Haim. 88.4 cm/s ALLIE(VTI)/BSA 1.27 cm2/m2 ALLIE (VTI) 1.27 cm2 Mitral Valve MV E Velocity 67.1 cm/s MV Peak Gr. 2 mmHg MV DECEL TIME 196 ms MV A Velocity 98.5 cm/s MV PHT 68 ms E/A Ratio 0.7 MVA (PHT) 3.24 cm2 MV VMax74.3 cm/s TDI Medial E' P. V 11.34 cm/s E/Medial E' 5.9 Tricuspid Valve RAP ESTIMATE 10 mmHg Pulmonary Vein S1 Velocity 30.4 cm/s D2 Velocity 25.5 cm/s PVa Hpimbvyv32.1 cm/s PVa [id number] msec LEFT VENTRICLE LV appears normal in size with moderate concentric hypertrophy. Overall systolic function appears mod erately reduced, although difficult to accurately assess wall motion due to suboptimal acoustic windo ws. There is moderate LV systolic dysfunction present. Overall estimated LVEF is about 40-45%. RIGHT VENTRICLE RV appears mildly dilated with normal contractility. ATRIA Left atrium is mildly dilated. AORTIC VALVE Stenosis severity is likely moderate, but fails to meet criteria due to low flow, low gradient condit ions. ALLIE is measured at 1.27 cmsq. Peak/mean gradients of 27/16 mmHG. Peak velocity is measured at 2 .6 m/sec. No insufficiency. MITRAL VALVE MV is thickened with mild annular calcification and no stenosis. Trace mitral regurgitation. TRICUSPID VALVE The tricuspid valve is normal in structure. Trace tricuspid regurgitation. PULMONIC VALVE Pulmonic valve is not well visualized. GREAT VESSELS The aortic root is normal in size. IVC is not well visualized. PERICARDIUM There is no pericardial effusion. Other Information Study Quality: Poor with poor subcostals Conclusion There is moderate LV systolic dysfunction present. Overall estimated LVEF is about 40-45%. LV appears normal in size with moderate concentric hypertrophy. Overall systolic function appears mod erately reduced, although difficult to accurately assess wall motion due to suboptimal acoustic windo ws. RV appears mildly dilated with normal contractility. Stenosis severity is likely moderate, but fails to meet criteria due to low flow, low gradient condit ions. ALLIE is measured at 1.27 cmsq. Peak/mean gradients of 27/16 mmHG. Peak velocity is measured at 2 .6 m/sec. No insufficiency. Trace mitral regurgitation. Trace tricuspid regurgitation. The aortic root is normal in size. There is no pericardial effusion.
[2024-12-04] VITALS (8 sets, daily range): BP systolic 98–144; BP diastolic 58–80; PULSE 65–117; RESP 19–28; TEMP 97–98; O2SAT 94–97
[2024-12-04 06:55] LABS: BASOPHILS % (AUTO) 0.1 % (0-1); EOSINOPHILS % (AUTO) 0.4 % (0-6); HEMATOCRIT 32.7 % (42.0-52.0); HEMOGLOBIN 11.1 g/dl (14.0-17.9); LYMPHOCYTES % (AUTO) 8.6 % (21-51); MEAN CORPUSCULAR HEMOGLOBIN 31.7 PG (27.0-31.0); MEAN CORPUSCULAR HGB CONC 33.9 g/dL (33.0-36.5); MEAN CORPUSCULAR VOLUME 93.5 FL (78-98); MEAN PLATELET VOLUME 9.6 FL (7.4-10.4); MONOCYTES # (AUTO) 0.7 X10'3 (0-0.9); NEUTROPHILS # (AUTO) 10.1 X10'3 (1.8-7.7); NEUTROPHILS % (AUTO) 84.9 % (42-75); PLATELET COUNT 55 X10'3 (140-440); RED BLOOD COUNT 3.49 X10'6 (4.70-6.10); RED CELL DISTRIBUTION WIDTH 15.1 % (11.5-14.5); WHITE BLOOD COUNT 11.8 X10'3 (4.5-11.0)
[2024-12-04 07:06] LABS: ALANINE AMINOTRANSFERASE 82 U/L (12-78); ALBUMIN 1.3 G/DL (3.4-5.0); ALBUMIN/GLOBULIN RATIO 0.4 (1.1-1.5); ALKALINE PHOSPHATASE 258 IU/L (46-116); ANION GAP 8 (8-16); ASPARTATE AMINO TRANSFERASE 74 U/L (10-37); BILIRUBIN,TOTAL 2.4 MG/DL (0.1-1.0); BLOOD UREA NITROGEN 22 MG/DL (7-18); BUN/CREATININE RATIO 34.4 (10.0-20.0); CALCIUM 7.6 MG/DL (8.5-10.1); CHLORIDE 114 MMOL/L (99-107); CREATININE 0.64 MG/DL (0.60-1.10); GLUCOSE 140 MG/DL (70-104); MAGNESIUM 1.8 MG/DL (1.5-2.4); PHOSPHORUS 1.7 MG/DL (2.3-4.5); POTASSIUM 3.1 MMOL/L (3.5-5.1); SODIUM 147 MMOL/L (135-145); TOTAL CARBON DIOXIDE 24.9 MMOL/L (24-32); TOTAL PROTEIN 4.3 G/DL (6.4-8.2); eCRCL 86 ML/MIN; eGFR > 90 ML/MIN
[2024-12-04] MEDS: potassium Cl 20 mEq SR tablet PO PRN (08:30)
[2024-12-04] MEDS ORDERED: VANCOMYCIN LEVEL IV ONE (10:30)
--- NOTE | 2024-12-04 13:54 | PROGRESS NOTE- Residence ---
Progress Note - Resident Providers to CC Resident Creating Document: BEATRIZ RASMUSSEN, NILES ~ Central Line/PICC still needed: No Holman-Non Protocol Holman Indications Met/Not Met: F/C Indications Not Met Antibiotic Timeout Antibiotic Ordered?: Yes Subjective Patient reports feeling okay today. Denies any increase in cough, ongoing diarrhea with two episodes yesterday and one episode today. Reports improvement in abdominal pain. Denies any other acute symptoms. Overnight, the patient went into AFib with RVR. No medications were given. Telemetry today in the morning revealed persistent rhythm of atrial fibrillation. No prior history known. He was re-evaluated by the swallow eval today, due to his difficulty swallowing, patient to be placed on NPO. Objective Vital Signs Date Time Temp Pulse Resp B/P (MAP) Pulse Ox O2 Delivery O2 Flow Rate FiO2 12/04/24 06:30 110 12/04/24 02:00 97.0 24 104/63 (77) 97 12/03/24 23:08 Nasal Cannula 4.0 12/03/24 14:01 32 Result Diagram: 12/04/24 0532 12/04/24 0532 General: Awake and Alert, no acute distress. HEENT: Conjunctiva pink, Sclera clear, Mucus Membranes moist. Resp: Midly tachyneic, b/l fine basal crepitations. Heart: Regular Rate and rhythm, normal S1 and S2 without murmur, rub or gallop. Abdomen: Diffusely tender. Bowel sounds present. Increased tenderness in the right upper quadrant Extremities: Bilateral 2+ pitting edema Skin: Warm and Dry. Coagulation Studies Laboratory Tests Test 12/02/24 01:11 Prothrombin Time 14.6 SECONDS (9.0-12.0) H INR International Normalized Ratio 1.5 INR Coagulation Comments Assessment Assessment 84-year-old male patient with a past medical history of hypertension, sleep apnea, CAD, heart failure with reduced EF, allergies on chronic prednisone treatment, recurrent UTIs, and chronic constipation presents to the hospital from [facility] as a long-term resident with fever, hypotension, tachycardia, and diarrhea. Reports that symptoms had begun three days ago prior to his patient to the hospital. He is currently being evaluated and managed for severe sepsis. Plan Plan 1. Severe sepsis: POA Source likely secondary to UTI, CPAP and GI Acute diarrheal illness- differentials including overt use of laxatives/gastroenteritis 12/02/2024: WBC 40.4, procalcitonin 44.23, lactic acid 9.0 to 6.7. Temperature 101.3 Chest x-ray clear, no wounds on body, urinalysis negative for leukocyte esterase and nitrites. However 1+ bacteria was found. Follow up with cultures. History of UTI with multiple drug-resistant Klebsiella Follow up with blood cultures. Follow up with echocardiogram for evidence of any vegetations. Ongoing watery stools; C difficile testing ordered Treatment with IV Rocephin and vancomycin Blood pressure currently 89/58 with a map above 65 mmHg. He received 3 L of NS boluses in the ER. Continue NS at 100 mL/hour. 12/03/2024: - leukocytosis improving, decreased to 20k - no further reported fevers. - overnight lactic acid significantly increased to 5.7, requiring 2 L of IV fluid boluses lactic acid decreased down to 2.4. Hypernatremia secondary to above. Patient currently on D5 half NS. Repeat lactic acid - blood cultures positive for Gram-positive cocci in pairs and chains; also positive for Gram-negative rods - discontinue vancomycin today. Continue Zosyn - C diff stool negative. Culture of stool, WBCs in stool awaited - follow repeat chest x-ray as the initial chest x-ray revealed no significant findings. Initial CT scan however revealed bilateral basilar ground-glass opacities. - repeat swallow eval to be performed for patient's risk of aspiration; we will modify diet accordingly. For now full liquid diet until next swallow eval 12/04/2024: - Improvement in white count noted. Lactic acid normalized. No further episodes of hypotension, did not require further IV fluid boluses. - Blood cultures positive for E coli and Streptococcus anginosus. - CT chest abdomen and pelvis done on day one of admission revealed absence of any intra-abdominal abscesses. Only identification of possible abscesses dental. We will obtain ID opinion - continuing Zosyn day 3 - repeat swallow eval performed today. Patient to be NPO. Continue IV dextrose with half-normal saline 2. Paroxysmal atrial fibrillation: 12/03/2024: EKG will be obtained for records CHADS-VASc score: 3, has bled score 2 We will start the patient on Eliquis; currently not requiring rate control medications IV Lopressor if heart rate increases Aware of increased BUN/creatinine ratio, we will follow stool for occult blood Discontinue aspirin in view of elevated risk of bleeding in the 85-year-old Closely monitor H&H Telemetry monitoring to be continued 3. Heart failure with reduced ejection fraction: In no acute exacerbation ProBNP 5610 - currently on 3-4 L oxygen - cautious IV fluid resuscitation for sepsis. Closely monitor increasing oxygen requirements. - follow repeat chest x-ray. If fluid overload, we will administer one dose of IV Lasix - continue close monitoring of oxygen requirements 12/04/2024: Fluids ongoing. In no acute distress. - Continues to require 4lts of O2. - MIld b/l basilar crepts heard, further decreasing fluids to 50cc/hr. Will closely monitor the Na - Close monitoring of his oxygen saturation and physical exam we will be maintain to prevent acute exacerbation of his heart failure. 4. Transaminitis: New onset, Improving Hyperbilirubinemia- direct Likely hypotension induced 12/03/2024: Bilirubin elevated to 2.7, AST greater than ALT by less than 3 times, elevated alkaline phosphatase Bilirubin contributed by direct elevation Follow up abdominal ultrasound for CBD and gallbladder 12/04/2024: Improved labs today Abdominal ultrasound ruled out presence of cirrhosis or CBD dilatation or cholecystitis. Only significant for enlarged gallbladder 5. Subclinical hyperthyroidism: TSH 0.3, normal free T4 Repeat in three months 6. Hypernatremia: Hyperchloremia with low bicarb Secondary to IV fluid resuscitation - continuing D5 half NS. Decreased rate from 100 cc/hour to 75 cc/hour - repeat CMP and we will slowly decrease rate further in view of underlying heart failure with reduced EF 7. Chronic steroid use disorder: - 10 mg p.o. daily - we will restart the dose to prevent withdrawal 8. Thrombocytopenia: 12/03/2024: Heparin held today morning; continue SCDs Multifactorial etiology including acute ischemic liver injury, severe sepsis induced or heparin induced Continue monitoring at this time. 12/04/2024: Stop heparin -continue monitoring CBC closely 9. Severe protein energy malnutrition: Albumin 1.3 Questionable protein-losing enteropathy Nutrition consulted Started the patient on Imodium q.8 hours p.r.n. 10. Elevated BUN/creatinine ratio: Continue IV fluid resuscitation Follow stool for occult blood Patient is not ambulatory due to unknown reasons. PT eval and treat for discharge planning Lines: PIV Code status: DNR DVT prophylaxis: SCDs, Eliquis GI prophylaxis: Protonix IV Prognosis: Guarded Beatriz Rasmussen PGY2, Internal medicine resident Addendum sepsis with e colli and strep anginosus, switch to unasyn Date of Service: December 04, 2024 Billing Provider: ALBERTO JIMENEZ MD Common Visit Codes: [id number] INP/OBS CARE(HIGH) BEATRIZ RASMUSSEN, RES December 04, 2024 13:54 ALBERTO JIMENEZ MD December 04, 2024 21:45
--- NOTE | 2024-12-04 16:20 | ELECTROCARDIOGRAPH REPORT ---
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 JUSTIN Nugent Measurements Intervals [place] Rate: 113 P: 0 MI: 0 QRS: -74 QRSD: 127 T: 78 QT: 355 QTc: 487 Interpretive Statements Atrial fibrillation Ventricular premature complex Left bundle branch block Electronically Signed On 12-04-2024 19:50:[address] JUSTIN Nugent Please click the below link to view image of tracing.
[2024-12-04] MEDS: apixaban 5mg tablet PO SCH (20:00)
[2024-12-04 22:00] LABS: ALANINE AMINOTRANSFERASE 75 U/L (12-78); ALBUMIN 1.5 G/DL (3.4-5.0); ALBUMIN/GLOBULIN RATIO 0.5 (1.1-1.5); ALKALINE PHOSPHATASE 264 IU/L (46-116); ANION GAP 9 (8-16); ASPARTATE AMINO TRANSFERASE 36 U/L (10-37); BILIRUBIN,TOTAL 1.1 MG/DL (0.1-1.0); BLOOD UREA NITROGEN 19 MG/DL (7-18); BUN/CREATININE RATIO 31.1 (10.0-20.0); CALCIUM 7.6 MG/DL (8.5-10.1); CHLORIDE 114 MMOL/L (99-107); CREATININE 0.61 MG/DL (0.60-1.10); GLUCOSE 129 MG/DL (70-104); POTASSIUM 3.2 MMOL/L (3.5-5.1); SODIUM 148 MMOL/L (135-145); TOTAL PROTEIN 4.7 G/DL (6.4-8.2); eCRCL 90 ML/MIN; eGFR > 90 ML/MIN
[2024-12-04] MEDS: potassium Cl 40MEQ/1/2NS 520ml 520 ML IV ONE (22:42)
[2024-12-05 02:00] VITALS: BP 103/72; PULSE 75; RESP 19; TEMP 97.6; O2SAT 97
[2024-12-05] MEDS: ampicillin/sulbac 3gm/NS 100ml 100 ML IV SCH (03:29)
[2024-12-05] MEDS: ampicillin/sulbac 3gm/NS 100ml 100 ML IV ONE (03:36)
[2024-12-05 06:13] LABS: BASOPHILS % (AUTO) 0 % (0-1); EOSINOPHILS # (AUTO) 0.1 X10'3 (0-0.9); EOSINOPHILS % (AUTO) 0.6 % (0-6); HEMATOCRIT 31.8 % (42.0-52.0); HEMOGLOBIN 10.7 g/dl (14.0-17.9); LYMPHOCYTES # (AUTO) 1.4 X10'3 (1.1-4.8); LYMPHOCYTES % (AUTO) 14.1 % (21-51); MEAN CORPUSCULAR HEMOGLOBIN 31.7 PG (27.0-31.0); MEAN CORPUSCULAR HGB CONC 33.8 g/dL (33.0-36.5); MEAN CORPUSCULAR VOLUME 93.7 FL (78-98); MEAN PLATELET VOLUME 9.7 FL (7.4-10.4); MONOCYTES # (AUTO) 0.6 X10'3 (0-0.9); MONOCYTES % (AUTO) 6.2 % (2-12); NEUTROPHILS # (AUTO) 7.9 X10'3 (1.8-7.7); NEUTROPHILS % (AUTO) 79.1 % (42-75); PLATELET COUNT 54 X10'3 (140-440); RED BLOOD COUNT 3.39 X10'6 (4.70-6.10); RED CELL DISTRIBUTION WIDTH 15.2 % (11.5-14.5)
[2024-12-05 08:00] VITALS: RESP 17; O2SAT 96
[2024-12-05] MEDS: loperamide 2mg capsule PO PRN (10:03)
[2024-12-05] MEDS: predniSONE 5mg tablet PO SCH (10:04)
[2024-12-05] MEDS: magnesium sulf-water 2g/50mL 50 ML IV ONE (10:04)
[2024-12-05 11:03] LABS: ALANINE AMINOTRANSFERASE 57 U/L (12-78); ALBUMIN 1.4 G/DL (3.4-5.0); ALBUMIN/GLOBULIN RATIO 0.4 (1.1-1.5); ALKALINE PHOSPHATASE 233 IU/L (46-116); ANION GAP 10 (8-16); BILIRUBIN,TOTAL 0.9 MG/DL (0.1-1.0); BLOOD UREA NITROGEN 20 MG/DL (7-18); BUN/CREATININE RATIO 35.1 (10.0-20.0); CALCIUM 7.5 MG/DL (8.5-10.1); CHLORIDE 114 MMOL/L (99-107); CREATININE 0.57 MG/DL (0.60-1.10); GLUCOSE 109 MG/DL (70-104); MAGNESIUM 1.8 MG/DL (1.5-2.4); SODIUM 147 MMOL/L (135-145); TOTAL CARBON DIOXIDE 23.4 MMOL/L (24-32); TOTAL PROTEIN 4.6 G/DL (6.4-8.2); eCRCL 96 ML/MIN; eGFR > 90 ML/MIN
[2024-12-05 11:08] LABS: ASPARTATE AMINO TRANSFERASE 29 U/L (10-37); PHOSPHORUS 2.3 MG/DL (2.3-4.5); POTASSIUM 3.7 MMOL/L (3.5-5.1)
--- NOTE | 2024-12-05 17:17 | PROGRESS NOTE- Residence ---
Progress Note - Resident Providers to CC Resident Creating Document: BEATRIZ RASMUSSEN RES ~ Central Line/PICC still needed: No Holman-Non Protocol Holman Indications Met/Not Met: F/C Indications Not Met Antibiotic Timeout Antibiotic Ordered?: Yes Subjective Patient has no acute complaints. Resting comfortably in bed. Objective Vital Signs Date Time Temp Pulse Resp B/P (MAP) Pulse Ox O2 Delivery O2 Flow Rate FiO2 12/05/24 08:00 17 96 Nasal Cannula 4.0 12/05/24 06:30 125 12/05/24 02:00 97.6 103/72 (82) 12/03/24 14:01 32 Result Diagram: 12/05/24 0547 12/05/24 0929 General: Awake and Alert, no acute distress. HEENT: Conjunctiva pink, Sclera clear, Mucus Membranes moist. Resp: Bilateral air entry present. Diminished basilar breath sounds Heart: Regular Rate and rhythm, normal S1 and S2 without murmur, rub or gallop. Abdomen: Decreased interval tenderness. Bowel sounds present. Soft with no guarding or rigidity Extremities: Bilateral 2+ pitting edema Skin: Warm and Dry. Coagulation Studies Laboratory Tests Test 12/02/24 01:11 Prothrombin Time 14.6 SECONDS (9.0-12.0) H INR International Normalized Ratio 1.5 INR Coagulation Comments Assessment Assessment 84-year-old male patient with a past medical history of hypertension, sleep apnea, CAD, heart failure with reduced EF, allergies on chronic prednisone treatment, recurrent UTIs, and chronic constipation presents to the hospital from [facility] as a long-term resident with fever, hypotension, tachycardia, and diarrhea. Reports that symptoms had begun three days ago prior to his patient to the hospital. He is currently being evaluated and managed for severe sepsis. Plan Plan 1. Severe sepsis: POA Source likely secondary to UTI, CPAP and GI Acute diarrheal illness- differentials including overt use of laxatives/gastroenteritis 12/02/2024: WBC 40.4, procalcitonin 44.23, lactic acid 9.0 to 6.7. Temperature 101.3 Chest x-ray clear, no wounds on body, urinalysis negative for leukocyte esterase and nitrites. However 1+ bacteria was found. Follow up with cultures. History of UTI with multiple drug-resistant Klebsiella Follow up with blood cultures. Follow up with echocardiogram for evidence of any vegetations. Ongoing watery stools; C difficile testing ordered Treatment with IV Rocephin and vancomycin Blood pressure currently 89/58 with a map above 65 mmHg. He received 3 L of NS boluses in the ER. Continue NS at 100 mL/hour. 12/03/2024: - leukocytosis improving, decreased to 20k - no further reported fevers. - overnight lactic acid significantly increased to 5.7, requiring 2 L of IV fluid boluses lactic acid decreased down to 2.4. Hypernatremia secondary to above. Patient currently on D5 half NS. Repeat lactic acid - blood cultures positive for Gram-positive cocci in pairs and chains; also positive for Gram-negative rods - discontinue vancomycin today. Continue Zosyn - C diff stool negative. Culture of stool, WBCs in stool awaited - follow repeat chest x-ray as the initial chest x-ray revealed no significant findings. Initial CT scan however revealed bilateral basilar ground-glass opacities. - repeat swallow eval to be performed for patient's risk of aspiration; we will modify diet accordingly. For now full liquid diet until next swallow eval 12/04/2024: - Improvement in white count noted. Lactic acid normalized. No further episodes of hypotension, did not require further IV fluid boluses. - Blood cultures positive for E coli and Streptococcus anginosus. - CT chest abdomen and pelvis done on day one of admission revealed absence of any intra-abdominal abscesses. Only identification of possible abscesses dental. We will obtain ID opinion - continuing Zosyn day 3 - repeat swallow eval performed today. Patient to be NPO. Continue IV dextrose with half-normal saline 12/05/2024: Leukocytosis resolved - no new other signs of sepsis; vitals stable - antibiotics switched to Unasyn today - started the patient on a diet as he is more awake and alert 2. Paroxysmal atrial fibrillation: 12/03/2024: EKG will be obtained for records CHADS-VASc score: 3, has bled score 2 We will start the patient on Eliquis; currently not requiring rate control medications IV Lopressor if heart rate increases Aware of increased BUN/creatinine ratio, we will follow stool for occult blood Discontinue aspirin in view of elevated risk of bleeding in the 85-year-old Closely monitor H&H Telemetry monitoring to be continued 3. Heart failure with reduced ejection fraction: In no acute exacerbation ProBNP 5610 - currently on 3-4 L oxygen - cautious IV fluid resuscitation for sepsis. Closely monitor increasing oxygen requirements. - follow repeat chest x-ray. If fluid overload, we will administer one dose of IV Lasix - continue close monitoring of oxygen requirements 12/04/2024: Fluids ongoing. In no acute distress. - Continues to require 4lts of O2. - MIld b/l basilar crepts heard, further decreasing fluids to 50cc/hr. Will closely monitor the Na - Close monitoring of his oxygen saturation and physical exam we will be maintain to prevent acute exacerbation of his heart failure. 12/05/2024: No worsening oxygenation. Continues to be on 4 L. We will start a full liquid diet, advance to soft diet tomorrow and watch for improvement. If eating well, we will discontinue the fluids 4. Transaminitis: Resolved Hyperbilirubinemia- direct Likely hypotension induced 12/03/2024: Bilirubin elevated to 2.7, AST greater than ALT by less than 3 times, elevated alkaline phosphatase Bilirubin contributed by direct elevation Follow up abdominal ultrasound for CBD and gallbladder 12/04/2024: Improved labs today Abdominal ultrasound ruled out presence of cirrhosis or CBD dilatation or cholecystitis. Only significant for enlarged gallbladder 12/05/2024: Transaminitis is off. Bilirubin normal Nonspecific elevation in alkaline phosphatase 5. Subclinical hyperthyroidism: TSH 0.3, normal free T4 Repeat in three months 6. Hypernatremia: Hyperchloremia with low bicarb Secondary to IV fluid resuscitation - continuing D5 half NS. Continuing at 50 cc/hour - repeat CMP and we will slowly decrease rate further in view of underlying heart failure with reduced EF 7. Chronic steroid use disorder: - 10 mg p.o. daily - we will restart the dose to prevent withdrawal 8. Thrombocytopenia: 12/03/2024: Heparin held today morning; continue SCDs Multifactorial etiology including acute ischemic liver injury, severe sepsis induced or heparin induced Continue monitoring at this time. 12/04/2024: Stop heparin -continue monitoring CBC closely 12/05/2024: Platelets constant at 55k -no signs of bleeding noted - started the patient on Eliquis for DVT prophylaxis; heparin stopped 9. Severe protein energy malnutrition: Albumin 1.3 Questionable protein-losing enteropathy Nutrition consulted Started the patient on Imodium q.8 hours p.r.n. 10. Elevated BUN/creatinine ratio: Continue IV fluid resuscitation Follow stool for occult blood Dispo: Baseline minimally ambulatory status. Lives in [facility] as a long-term resident. Discharge home with p.o. Augmentin or with IV Rocephin. Awaiting stool culture and stool for occult blood. Awaiting ID recommendations. Lines: PIV Code status: DNR DVT prophylaxis: SCDs, Eliquis GI prophylaxis: Protonix IV Prognosis: Guarded Beatriz Rasmussen PGY2, Internal medicine resident Date of Service: December 05, 2024 Billing Provider: ALBERTO JIMENEZ MD Common Visit Codes: [id number] INP/OBS CARE(HIGH) BEATRIZ RASMUSSEN, RES December 05, 2024 17:17 ALBERTO JIMENEZ MD December 05, 2024 21:02
[2024-12-05 18:00] VITALS: BP 123/86; PULSE 124; RESP 22; TEMP 97; O2SAT 96
[2024-12-05] MEDS: diatr meglu/diatrizoate 30ml oral sol.-(3 dose) bottle PO SCH (21:05)
[2024-12-05 22:00] VITALS: BP 108/52; PULSE 109; RESP 12; TEMP 97.7; O2SAT 97
[2024-12-05] MEDS ORDERED: VANCOMYCIN LEVEL IV ONE (22:30)
[2024-12-06] VITALS (9 sets, daily range): BP systolic 118–136; BP diastolic 76–87; PULSE 68–113; RESP 16–26; TEMP 97.2–98.3; O2SAT 95–100
[2024-12-06] MEDS: gabapentin 100mg capsule PO ONE (00:16)
[2024-12-06] MEDS: morphine 2 MG/ML inj. syringe IV ONE (00:16)
[2024-12-06 06:34] LABS: BASOPHILS % (AUTO) 0.1 % (0-1); EOSINOPHILS # (AUTO) 0.1 X10'3 (0-0.9); EOSINOPHILS % (AUTO) 0.7 % (0-6); HEMATOCRIT 34.5 % (42.0-52.0); HEMOGLOBIN 11.7 g/dl (14.0-17.9); LYMPHOCYTES # (AUTO) 1.8 X10'3 (1.1-4.8); LYMPHOCYTES % (AUTO) 14.1 % (21-51); MEAN CORPUSCULAR HEMOGLOBIN 31.2 PG (27.0-31.0); MEAN CORPUSCULAR HGB CONC 33.8 g/dL (33.0-36.5); MEAN CORPUSCULAR VOLUME 92.3 FL (78-98); MEAN PLATELET VOLUME 9.6 FL (7.4-10.4); MONOCYTES # (AUTO) 0.9 X10'3 (0-0.9); MONOCYTES % (AUTO) 6.9 % (2-12); NEUTROPHILS # (AUTO) 10.2 X10'3 (1.8-7.7); NEUTROPHILS % (AUTO) 78.2 % (42-75); PLATELET COUNT 83 X10'3 (140-440); RED BLOOD COUNT 3.74 X10'6 (4.70-6.10); RED CELL DISTRIBUTION WIDTH 15.1 % (11.5-14.5); WHITE BLOOD COUNT 13.1 X10'3 (4.5-11.0)
[2024-12-06 06:53] LABS: ALANINE AMINOTRANSFERASE 49 U/L (12-78); ALBUMIN 1.6 G/DL (3.4-5.0); ALBUMIN/GLOBULIN RATIO 0.5 (1.1-1.5); ALKALINE PHOSPHATASE 247 IU/L (46-116); ANION GAP 5 (8-16); ASPARTATE AMINO TRANSFERASE 26 U/L (10-37); BILIRUBIN,TOTAL 0.9 MG/DL (0.1-1.0); BLOOD UREA NITROGEN 19 MG/DL (7-18); BUN/CREATININE RATIO 28.4 (10.0-20.0); CALCIUM 7.6 MG/DL (8.5-10.1); CHLORIDE 115 MMOL/L (99-107); CREATININE 0.67 MG/DL (0.60-1.10); GLUCOSE 98 MG/DL (70-104); MAGNESIUM 2.1 MG/DL (1.5-2.4); PHOSPHORUS 2.4 MG/DL (2.3-4.5); POTASSIUM 3.3 MMOL/L (3.5-5.1); SODIUM 147 MMOL/L (135-145); TOTAL CARBON DIOXIDE 27.1 MMOL/L (24-32); TOTAL PROTEIN 4.9 G/DL (6.4-8.2); eCRCL 82 ML/MIN; eGFR > 90 ML/MIN
[2024-12-06] MEDS: pantoprazole 40mg Tablet.DR PO SCH (07:11)
[2024-12-06] MEDS ORDERED: magnesium sulf-water 2g/50mL 50 ML IV PRN (07:25)
[2024-12-06] MEDS ORDERED: magnesium Cl slow-release 64mg tablet PO PRN (07:25)
[2024-12-06] MEDS ORDERED: potassium Cl 20 mEq SR tablet PO PRN (07:25)
[2024-12-06] MEDS ORDERED: potassium Cl 40MEQ/1/2NS 520ml 520 ML IV PRN (07:25)
[2024-12-06] MEDS ORDERED: magnesium sulf-water 4G/100mL 100 ML IV PRN (07:25)
[2024-12-06] MEDS: K and/or MAG REPLACEMENT MC SCH (08:00)
[2024-12-06] MEDS: potassium Cl 20 mEq SR tablet PO PRN (09:01)
[2024-12-06] MEDS ORDERED: iohexol 300mg/ml 100ml inj. ONE (11:07)
[2024-12-06] MEDS: traMADol 50MG tablet PO PRN (13:03)
--- NOTE | 2024-12-06 13:17 | PROGRESS NOTE- Residence ---
Progress Note - Resident Providers to CC Resident Creating Document: DARIORAYSHAWN WALKERNILES GARNER ~ Antibiotic Timeout Antibiotic Ordered?: Yes Subjective Seen and examined the patient at bedside. Patient is complaining of pain in the knees. Endorses 3 times green colored diarrhea, without any foul-smelling Objective Vital Signs Date Time Temp Pulse Resp B/P (MAP) Pulse Ox O2 Delivery O2 Flow Rate FiO2 12/06/24 13:03 16 12/06/24 10:00 97.7 110 128/82 (97) 98 Nasal Cannula 4.0 12/06/24 08:00 32 Result Diagram: 12/06/2461512/06/24 0616 General: Awake and Alert, no acute distress. HEENT: Conjunctiva pink, Sclera clear, Mucus Membranes moist. Resp: Bilateral air entry present. Diminished basilar breath sounds Heart: Regular Rate and rhythm, normal S1 and S2 without murmur, rub or gallop. Abdomen: Decreased interval tenderness. Bowel sounds present. Soft with no guarding or rigidity Extremities: Bilateral 2+ pitting edema Skin: Warm and Dry. Coagulation Studies Laboratory Tests Test 12/02/24 01:11 Prothrombin Time 14.6 SECONDS (9.0-12.0) H INR International Normalized Ratio 1.5 INR Coagulation Comments Advance Care Planning Advanced Care plannin - 30 Minutes Assessment Assessment 84-year-old male patient with a past medical history of hypertension, sleep apnea, CAD, heart failure with reduced EF, allergies on chronic prednisone treatment, recurrent UTIs, and chronic constipation presents to the hospital from [facility] as a long-term resident with fever, hypotension, tachycardia, and diarrhea. Reports that symptoms had begun three days ago prior to his patient to the hospital. He is currently being evaluated and managed for severe sepsis. Plan Plan 1. Severe sepsis: POA Source likely secondary to UTI, CPAP and GI Acute diarrheal illness- differentials including overt use of laxatives/gastroenteritis 12/02/2024: WBC 40.4, procalcitonin 44.23, lactic acid 9.0 to 6.7. Temperature 101.3 Chest x-ray clear, no wounds on body, urinalysis negative for leukocyte esterase and nitrites. However 1+ bacteria was found. Follow up with cultures. History of UTI with multiple drug-resistant Klebsiella Follow up with blood cultures. Follow up with echocardiogram for evidence of any vegetations. Ongoing watery stools; C difficile testing ordered Treatment with IV Rocephin and vancomycin Blood pressure currently 89/58 with a map above 65 mmHg. He received 3 L of NS boluses in the ER. Continue NS at 100 mL/hour. 12/03/2024: - leukocytosis improving, decreased to 20k - no further reported fevers. - overnight lactic acid significantly increased to 5.7, requiring 2 L of IV fluid boluses lactic acid decreased down to 2.4. Hypernatremia secondary to above. Patient currently on D5 half NS. Repeat lactic acid - blood cultures positive for Gram-positive cocci in pairs and chains; also positive for Gram-negative rods - discontinue vancomycin today. Continue Zosyn - C diff stool negative. Culture of stool, WBCs in stool awaited - follow repeat chest x-ray as the initial chest x-ray revealed no significant findings. Initial CT scan however revealed bilateral basilar ground-glass opacities. - repeat swallow eval to be performed for patient's risk of aspiration; we will modify diet accordingly. For now full liquid diet until next swallow eval 12/04/2024: - Improvement in white count noted. Lactic acid normalized. No further episodes of hypotension, did not require further IV fluid boluses. - Blood cultures positive for E coli and Streptococcus anginosus. - CT chest abdomen and pelvis done on day one of admission revealed absence of any intra-abdominal abscesses. Only identification of possible abscesses dental. We will obtain ID opinion - continuing Zosyn day 3 - repeat swallow eval performed today. Patient to be NPO. Continue IV dextrose with half-normal saline 12/05/2024: Leukocytosis resolved - no new other signs of sepsis; vitals stable - antibiotics switched to Unasyn today - started the patient on a diet as he is more awake and alert 12/06/2024: - we will continue Unasyn and we will touch base with Dr. Jimenez for antibiotic recommendation. Patient reported pain in knee and we started tramadol 50 mg q.4 H. 2. Paroxysmal atrial fibrillation: 12/03/2024: EKG will be obtained for records CHADS-VASc score: 3, has bled score 2 We will start the patient on Eliquis; currently not requiring rate control medications IV Lopressor if heart rate increases Aware of increased BUN/creatinine ratio, we will follow stool for occult blood Discontinue aspirin in view of elevated risk of bleeding in the 85-year-old Closely monitor H&H Telemetry monitoring to be continued 12/06/2024. No new episodes of AFib 3. Heart failure with reduced ejection fraction: In no acute exacerbation ProBNP 5610 - currently on 3-4 L oxygen - cautious IV fluid resuscitation for sepsis. Closely monitor increasing oxygen requirements. - follow repeat chest x-ray. If fluid overload, we will administer one dose of IV Lasix - continue close monitoring of oxygen requirements 12/04/2024: Fluids ongoing. In no acute distress. - Continues to require 4lts of O2. - MIld b/l basilar crepts heard, further decreasing fluids to 50cc/hr. Will closely monitor the Na - Close monitoring of his oxygen saturation and physical exam we will be maintain to prevent acute exacerbation of his heart failure. 12/05/2024: No worsening oxygenation. Continues to be on 4 L. We will start a full liquid diet, advance to soft diet tomorrow and watch for improvement. If eating well, we will discontinue the fluids 12/06/2024: We will continue the oxygen with 4 L. 4. Transaminitis: Resolved Hyperbilirubinemia- direct Likely hypotension induced 12/03/2024: Bilirubin elevated to 2.7, AST greater than ALT by less than 3 times, elevated alkaline phosphatase Bilirubin contributed by direct elevation Follow up abdominal ultrasound for CBD and gallbladder 12/04/2024: Improved labs today Abdominal ultrasound ruled out presence of cirrhosis or CBD dilatation or cholecystitis. Only significant for enlarged gallbladder 12/05/2024: Transaminitis is off. Bilirubin normal Nonspecific elevation in alkaline phosphatase 12/06/2024. Alkaline phosphatase is downtrending 5. Subclinical hyperthyroidism: TSH 0.3, normal free T4 Repeat in three months 6. Hypernatremia: Hyperchloremia with low bicarb Secondary to IV fluid resuscitation - continuing D5 half NS. Continuing at 50 cc/hour - repeat CMP and we will slowly decrease rate further in view of underlying heart failure with reduced EF 12/06/2024 : serum sodium is downtrended from 150-147 7. Chronic steroid use disorder: - 10 mg p.o. daily - we will restart the dose to prevent withdrawal 8. Thrombocytopenia: 12/03/2024: Heparin held today morning; continue SCDs Multifactorial etiology including acute ischemic liver injury, severe sepsis induced or heparin induced Continue monitoring at this time. 12/04/2024: Stop heparin -continue monitoring CBC closely 12/05/2024: Platelets constant at 55k -no signs of bleeding noted - started the patient on Eliquis for DVT prophylaxis; heparin stopped 12/06/2024: We will continue Eliquis 9. Severe protein energy malnutrition: Albumin 1.3 Questionable protein-losing enteropathy Nutrition consulted Started the patient on Imodium q.8 hours p.r.n. 10. Elevated BUN/creatinine ratio: Continue IV fluid resuscitation Follow stool for occult blood Dispo: Baseline minimally ambulatory status. Lives in [facility] as a long-term resident. Awaiting ID recommendations. Awaiting stool culture and stool for occult blood. Lines: PIV Code status: DNR DVT prophylaxis: SCDs, Eliquis GI prophylaxis: Protonix IV Prognosis: Guarded Date of Service: December 06, 2024 Billing Provider: ALBERTO JIMENEZ MD Common Visit Codes: [id number] INP/OBS CARE(HIGH) NIA ROBERTS, RES December 06, 2024 13:17 ALBERTO JIMENEZ MD December 11, 2024 06:35
--- NOTE | 2024-12-06 13:22 | RADIOLOGY REPORT ---
Exam: CT CT ABDOMEN PELVIS W/ IV ORAL CONTRAST History: polymicrobial sepsis with AP COMPARISON: CT CT ABDOMEN PELVIS on DOS: 08/04/23, CT chest abdomen and pelvis 12/01/2024. Technique: Multidetector spiral CT of the abdomen and pelvis was performed from lung bases to pubic s ymphysis. Intravenous contrast was administered during this examination. Portal venous imaging was o btained. Axial, coronal and sagittal multiplanar reformats were performed by the technologist on a [employer] workstation. Radiation Dose : 1. Abdomen/Pelvis: CTDIvol 35.83 mGy, DLP 1878.59 mGy*cm. CONTRAST: Type of contrast: Omnipaque 300 Contrast injected: 90 ml Oral contrast: Present. Findings: Lung Bases: Small bilateral pleural effusions with adjacent atelectasis / consolidation, partially vi sualized. Liver: Mild periportal edema. Heterogeneous enhancement of the hepatic parenchyma near the gallbladde r fossa. Gallbladder and biliary Tree: Cholelithiasis. Common bile duct measures 10 mm with punctate hyperden se foci distally (series 2 image 38 ). Mild intrahepatic biliary ductal dilatation. Soft tissue stran ding along the gallbladder and extrahepatic bile ducts noted. Spleen: Unremarkable Pancreas: Mild diffuse peripancreatic fat stranding. No organized peripancreatic fluid collection. Adrenal Glands: Unremarkable Kidneys: Nonspecific mild perinephric fluid / stranding bilaterally. No nephrolithiasis or hydrone phrosis. Bladder: Holman catheter in position. Small dependent stones. Small volume anti dependent intraluminal air. Bowel: Soft tissue stranding along the duodenum noted, extending inferiorly. No bowel dilation. Scat tered colonic diverticula without significant adjacent fat stranding. Small fat density focus adjacen t to the sigmoid colon may represent sequela of epiploic appendagitis. The appendix is nondilated. Sm all hiatal hernia with distal esophageal wall thickening. Enteric contrast is noted within the distal esophagus. Ascites: Small volume low density fluid, most pronounced along the left paracolic gutter and perihepa tic space. Lymphadenopathy: Scattered mildly prominent peripancreatic lymph nodes. Abdominal wall and Mesentery: Laxity of the linea alba. Mild diffuse paraspinal muscular atrophy. Non specific subcutaneous straining along the lateral aspects of the abdomen and thighs. Vasculature: Atherosclerotic calcification of the abdominal aorta and its branches. Pelvic Organs: Coarse prostatic calcifications. Musculoskeletal: Similar L1 compression deformity. Similar remodeling of the left acetabulum and femu r with protrusio acetabuli. Demineralized bones. Multi level degenerative changes of the visualized s pine. IMPRESSION: 1. Findings suggestive of choledocholithiasis with associated mild biliary ductal dilatation and poss ible cholecystitis / cholangitis. Correlate with ERCP or MRCP, as clinically indicated. 2. Soft tissue stranding about the pancreas and duodenum as well as new trace intraperitoneal free fl uid since 12/01/24 may be reactive. 3. New small bilateral pleural effusions with adjacent atelectasis +/- consolidation, partially visua lized. 4. Distal esophageal wall thickening may be related to underdistention and/or esophagitis. 5. Additional chronic / nonacute findings, as above. Radiation optimization: All CT scans at this facility use at least one of these dose optimization rufina hniques: Automated exposure control mA and/or kV adjustment per patient size (includes targeted exams where dose is matched to clinical indication) or iterative reconstruction.
[2024-12-07] VITALS (9 sets, daily range): BP systolic 113–129; BP diastolic 68–88; PULSE 107–117; RESP 20–26; TEMP 97.3–97.7; O2SAT 95–100
--- NOTE | 2024-12-07 06:21 | CONSULTATION ---
DICTATING PHYSICIAN: Juan Manuel Jimenez MD REASON FOR CONSULTATION: I am seeing the patient at the request of Dr. Horowitz for evaluation of polymicrobial sepsis. HISTORY OF PRESENT ILLNESS: The patient is an 84-year-old male, who is normally a resident at [facility] and required admission to this facility after presenting to the ER on 12/01/2024 with abdominal pain. He had noncontrast CT imaging at that time that was unremarkable. Blood cultures eventually grew Streptococcus anginosus and E. coli. He is currently receiving Unasyn. His white blood cell count was elevated at nearly 40,000 when he came in, but he is now normal at 10,000. He did have an acute kidney injury with a creatinine of 2.2 that quickly normalized. He states that he still has some abdominal discomfort. He has also developed diarrhea, but this may be related to Unasyn. He was febrile when he came in, but his fever quickly resolved. He is definitely feeling better and he is generally weak at baseline. He is currently n.p.o. and he states that he is hungry. PAST MEDICAL HISTORY: * Dyslipidemia. * GERD. * Depression. * Obstructive sleep apnea. * Atrial fibrillation. PAST SURGICAL HISTORY: He has required some orthopedic surgery in the past. ALLERGIES: None. MEDICATIONS: * Unasyn 3 g every 6 hours. * Prednisone 10 mg daily. It is unclear why he takes prednisone. * Apixaban. * Duloxetine. * Aspirin. * Atorvastatin. * Pantoprazole. FAMILY HISTORY: Noncontributory. SOCIAL HISTORY: I believe he is a permanent resident of [facility]. He does not smoke or drink alcohol. PHYSICAL EXAMINATION: VITAL SIGNS: He is afebrile with stable vital signs, currently on 4 liters. GENERAL: He is a pleasant elderly male, currently awake and lying in bed, in no acute distress. HEENT: Sclerae anicteric. Mouth is clear. NECK: Supple. LUNGS: Clear to auscultation bilaterally. HEART: Irregularly irregular. ABDOMEN: Soft without significant distention, but he is tender to palpation throughout. EXTREMITIES: No significant edema. LABORATORY DATA: His white blood cell count is 10,000, hemoglobin 10.7, platelets 54,000 and dropping. His creatinine is 0.6. His bilirubin peaked at 3.7 and appears to be coming down, AST peaked at 148 and appears to be coming down, ALT peaked at 118 and appears to be coming down and alkaline phosphatase peaked at 324 and appears to be coming down. Procalcitonin was 44 when he came in. Lactate was up to 9 when he came in and has since normalized. Noncontrast CT imaging of the chest, abdomen, and pelvis was largely unremarkable. Abdominal ultrasound showed a distended gallbladder. Chest x-ray is negative. Echocardiogram demonstrates an ejection fraction of 40% to 45%. Blood cultures did grow Streptococcus anginosus and E. coli. E. coli is fully susceptible. IMPRESSION: * Polymicrobial sepsis due to Streptococcus anginosus and E. coli of unclear etiology. These organisms would support a gastrointestinal source. He does have abdominal discomfort that is not well explained. Ischemic bowel would be a consideration, although he seems to be improving. Biliary tract infection is another consideration given his abnormal liver function tests that seemed to be improving. As mentioned above, I suspect that his diarrhea is related to Unasyn and may not be related to his initial presentation. * Severe sepsis with significant leukocytosis and fever on presentation. He did have a significant lactic acidosis that has since resolved. He is clearly moving in the right direction and his renal function has normalized. PLAN: He will continue with Unasyn for now at 3 g every 6 hours. If diarrhea remains problematic, he could be changed over to ceftriaxone with metronidazole. With regard to etiology, I am going to repeat a CT scan of the abdomen and pelvis with IV and oral contrast. HIDA scan may be considered depending on the results of that CT scan. Hopefully, he will continue to trend in the right direction and we should be able to get him back to [facility] on appropriate antibiotics to finish out his course. I will continue to follow him closely and I thank you for allowing me to participate in his care. 75 minutes time spent [id number], review of medical record including labs/cultures/imaging, orders and documentation. Juan Manuel Jimenez MD TID: [id number] RECEIPT: [id number] MUKUND/DENY LIZAMA
[2024-12-07 07:10] LABS: BASOPHILS % (AUTO) 0.1 % (0-1); EOSINOPHILS # (AUTO) 0.1 X10'3 (0-0.9); EOSINOPHILS % (AUTO) 1.1 % (0-6); HEMOGLOBIN 11.6 g/dl (14.0-17.9); LYMPHOCYTES # (AUTO) 1.6 X10'3 (1.1-4.8); LYMPHOCYTES % (AUTO) 14.3 % (21-51); MEAN CORPUSCULAR HEMOGLOBIN 31.5 PG (27.0-31.0); MEAN CORPUSCULAR VOLUME 92.8 FL (78-98); MEAN PLATELET VOLUME 9.4 FL (7.4-10.4); MONOCYTES # (AUTO) 0.7 X10'3 (0-0.9); NEUTROPHILS # (AUTO) 8.7 X10'3 (1.8-7.7); NEUTROPHILS % (AUTO) 78.5 % (42-75); PLATELET COUNT 110 X10'3 (140-440); RED BLOOD COUNT 3.67 X10'6 (4.70-6.10); RED CELL DISTRIBUTION WIDTH 14.9 % (11.5-14.5); WHITE BLOOD COUNT 11.1 X10'3 (4.5-11.0)
[2024-12-07 07:57] LABS: ALANINE AMINOTRANSFERASE 79 U/L (12-78); ALBUMIN 1.6 G/DL (3.4-5.0); ALBUMIN/GLOBULIN RATIO 0.5 (1.1-1.5); ALKALINE PHOSPHATASE 373 IU/L (46-116); ANION GAP 6 (8-16); ASPARTATE AMINO TRANSFERASE 63 U/L (10-37); BILIRUBIN,TOTAL 1.5 MG/DL (0.1-1.0); BLOOD UREA NITROGEN 15 MG/DL (7-18); CALCIUM 7.5 MG/DL (8.5-10.1); CHLORIDE 112 MMOL/L (99-107); GLUCOSE 92 MG/DL (70-104); MAGNESIUM 1.9 MG/DL (1.5-2.4); PHOSPHORUS 2.5 MG/DL (2.3-4.5); SODIUM 145 MMOL/L (135-145); TOTAL CARBON DIOXIDE 26.9 MMOL/L (24-32); eCRCL 92 ML/MIN; eGFR > 90 ML/MIN
[2024-12-07 07:58] LABS: POTASSIUM 3.5 MMOL/L (3.5-5.1)
[2024-12-07] MEDS ORDERED: SINCALIDE IV PRN (09:00)
[2024-12-07] MEDS ORDERED: NORMAL SALINE IV PRN (09:00)
--- NOTE | 2024-12-07 10:58 | PROGRESS NOTE ---
Progress Note Dictate Providers to CC ~ Subjective Subjective: He states that he is feeling a bit better with less abdominal discomfort. I believe he is tolerating a diet. He does feel a little short of breath. Objective Objective: GENERAL: Pleasant elderly male, currently awake and sitting up in bed looking stable LUNGS: Clear to auscultation bilaterally. HEART: Irregularly irregular. ABDOMEN: Soft without significant distention and less tender to palpation EXTREMITIES: No significant edema. Lab Results: 12/07/24 0640 12/07/24 0640 Radiology comments: CT abdomen/pelvis 1. Findings suggestive of choledocholithiasis with associated mild biliary ductal dilatation and possible cholecystitis / cholangitis. 2. Soft tissue stranding about the pancreas and duodenum as well as new trace intraperitoneal free fluid since 12/01/24 may be reactive. 3. New small bilateral pleural effusions with adjacent atelectasis +/- consolidation, partially visualized. 4. Distal esophageal wall thickening may be related to underdistention and/or esophagitis. Problem\Assessment\Plan Additional Plan 1. Polymicrobial sepsis due to Streptococcus anginosus and E. coli of unclear etiology. These organisms would support a gastrointestinal source. Biliary tract infection is a consideration given his abnormal LFTs that were improving, but now going up again. 2. Severe sepsis with significant leukocytosis and fever on presentation. Lactic acidosis and ARSH have resolved. Continue Unasyn Check HIDA scan May need MRCP Check lipase DILAN ZAMORA MD December 07, 2024 10:58
[2024-12-07] MEDS: NORMAL SALINE IV ONE (11:00)
[2024-12-07] MEDS: SINCALIDE IV ONE (11:00)
--- NOTE | 2024-12-07 12:07 | PROGRESS NOTE- Residence ---
Progress Note - Resident Providers to CC Resident Creating Document: BEATRIZ ZARAGOZA RES ~ Central Line/PICC still needed: No Holman-Non Protocol Holman Indications Met/Not Met: F/C Indications Not Met Antibiotic Timeout Antibiotic Ordered?: Yes Subjective Patient continues to have diarrhea. He had about four episodes of diarrhea yesterday and three episodes today. No reported fevers or chills. Vitals have been stable, 99% on 4 L oxygen. Have started to taper it down to 1-2 L today. After speaking with the nursing care facility, identify the patient is at baseline 1-2 L. He uses a urinal to urinate but has problems with incontinence. We will try discontinue the Holman's catheter and connecting a condom catheter today. Ongoing complaints of intermittent abdominal pain. Objective Vital Signs Date Time Temp Pulse Resp B/P (MAP) Pulse Ox O2 Delivery O2 Flow Rate FiO2 12/07/24 08:00 22 98 Nasal Cannula 4.0 32 12/07/24 06:00 97.3 117 126/84 (98) Result Diagram: 12/07/24 0640 12/07/24 0640 General: Awake and Alert, no acute distress. HEENT: Conjunctiva pink, Sclera clear, Mucus Membranes moist. Resp: Bilateral air entry present. Mild basilar crackles heard Heart: Regular Rate and rhythm, normal S1 and S2 without murmur, rub or gallop. Abdomen: Tenderness in the right upper quadrant as well as in the hypo gastric region Extremities: Bilateral 2+ pitting edema of upper and lower extremities. Skin: Warm and Dry. Coagulation Studies Laboratory Tests Test 12/02/24 01:11 Prothrombin Time 14.6 SECONDS (9.0-12.0) H INR International Normalized Ratio 1.5 INR Coagulation Comments Assessment Assessment 84-year-old male patient with a past medical history of hypertension, sleep apnea, CAD, heart failure with reduced EF, allergies on chronic prednisone treatment, recurrent UTIs, and chronic constipation presents to the hospital from [facility] as a long-term resident with fever, hypotension, tachycardia, and diarrhea. Reports that symptoms had begun three days ago prior to his patient to the hospital. He is currently being evaluated and managed for severe sepsis. Plan Plan 1. Severe sepsis: POA Source likely secondary to UTI, CPAP and GI Acute diarrheal illness- differentials including overt use of laxatives/gastroenteritis 12/02/2024: WBC 40.4, procalcitonin 44.23, lactic acid 9.0 to 6.7. Temperature 101.3 Chest x-ray clear, no wounds on body, urinalysis negative for leukocyte esterase and nitrites. However 1+ bacteria was found. Follow up with cultures. History of UTI with multiple drug-resistant Klebsiella Follow up with blood cultures. Follow up with echocardiogram for evidence of any vegetations. Ongoing watery stools; C difficile testing ordered Treatment with IV Rocephin and vancomycin Blood pressure currently 89/58 with a map above 65 mmHg. He received 3 L of NS boluses in the ER. Continue NS at 100 mL/hour. 12/03/2024: - leukocytosis improving, decreased to 20k - no further reported fevers. - overnight lactic acid significantly increased to 5.7, requiring 2 L of IV fluid boluses lactic acid decreased down to 2.4. Hypernatremia secondary to above. Patient currently on D5 half NS. Repeat lactic acid - blood cultures positive for Gram-positive cocci in pairs and chains; also positive for Gram-negative rods - discontinue vancomycin today. Continue Zosyn - C diff stool negative. Culture of stool, WBCs in stool awaited - follow repeat chest x-ray as the initial chest x-ray revealed no significant findings. Initial CT scan however revealed bilateral basilar ground-glass opacities. - repeat swallow eval to be performed for patient's risk of aspiration; we will modify diet accordingly. For now full liquid diet until next swallow eval 12/04/2024: - Improvement in white count noted. Lactic acid normalized. No further episodes of hypotension, did not require further IV fluid boluses. - Blood cultures positive for E coli and Streptococcus anginosus. - CT chest abdomen and pelvis done on day one of admission revealed absence of any intra-abdominal abscesses. Only identification of possible abscesses dental. We will obtain ID opinion - continuing Zosyn day 3 - repeat swallow eval performed today. Patient to be NPO. Continue IV dextrose with half-normal saline 12/05/2024: Leukocytosis resolved - no new other signs of sepsis; vitals stable - antibiotics switched to Unasyn today - started the patient on a diet as he is more awake and alert 12/06/2024: - we will continue Unasyn and we will touch base with Dr. Jimenez for antibiotic recommendation. Patient reported pain in knee and we started tramadol 50 mg q.4 H. 12/07/2024: - continue Unasyn - mild leukocytosis noted today. Follow procalcitonin - HIDA scan ordered. HIDA scan reveals bile duct obstruction. We will contact GI for ERCP. Patient to be maintained NPO - awaiting stool culture. 2. Paroxysmal atrial fibrillation: 12/03/2024: EKG will be obtained for records CHADS-VASc score: 3, has bled score 2 We will start the patient on Eliquis; currently not requiring rate control medications IV Lopressor if heart rate increases Aware of increased BUN/creatinine ratio, we will follow stool for occult blood Discontinue aspirin in view of elevated risk of bleeding in the 85-year-old Closely monitor H&H Telemetry monitoring to be continued 12/06/2024. No new episodes of AFib -Continue Eliquis 5 mg b.i.d. 3. Heart failure with reduced ejection fraction: In no acute exacerbation ProBNP 5610 - currently on 3-4 L oxygen - cautious IV fluid resuscitation for sepsis. Closely monitor increasing oxygen requirements. - follow repeat chest x-ray. If fluid overload, we will administer one dose of IV Lasix - continue close monitoring of oxygen requirements 12/04/2024: Fluids ongoing. In no acute distress. - Continues to require 4lts of O2. - MIld b/l basilar crepts heard, further decreasing fluids to 50cc/hr. Will closely monitor the Na - Close monitoring of his oxygen saturation and physical exam we will be maintain to prevent acute exacerbation of his heart failure. 12/05/2024: No worsening oxygenation. Continues to be on 4 L. We will start a full liquid diet, advance to soft diet tomorrow and watch for improvement. If eating well, we will discontinue the fluids 12/06/2024: We will continue the oxygen with 4 L. IV fluids stopped. Encourage p.o. intake 12/07/2024: - decreased nasal cannula oxygen from 4 L to 2 L. Baseline oxygen of 1-2 L at the facility - small bilateral pleural effusions noted on the chest x-ray - no increase in cough or shortness of breath. We will closely monitor. - aspiration precautions to be continued 4. Transaminitis: Recurrence Hyperbilirubinemia- direct Likely hypotension induced 12/03/2024: Bilirubin elevated to 2.7, AST greater than ALT by less than 3 times, elevated alkaline phosphatase Bilirubin contributed by direct elevation Follow up abdominal ultrasound for CBD and gallbladder 12/04/2024: Improved labs today Abdominal ultrasound ruled out presence of cirrhosis or CBD dilatation or cholecystitis. Only significant for enlarged gallbladder 12/05/2024: Transaminitis is off. Bilirubin normal Nonspecific elevation in alkaline phosphatase 12/06/2024. Alkaline phosphatase is downtrending 12/07/2024: Recurrence of transaminitis and ongoing elevation in alkaline phosphatase noted - ALP 373, ALT greater than AST today - HIDA scan ordered. We will await results. Positive Garzon's sign on exam - continue Unasyn 5. Subclinical hyperthyroidism: TSH 0.3, normal free T4 Repeat in three months 6. Hypernatremia: Resolved Hyperchloremia with low bicarb Secondary to IV fluid resuscitation - continuing D5 half NS. Continuing at 50 cc/hour - repeat CMP and we will slowly decrease rate further in view of underlying heart failure with reduced EF 12/06/2024 : serum sodium is downtrended from 150-147 12/07/2024: Hypernatremia resolved. 7. Chronic steroid use disorder: Indication unknown - 10 mg p.o. daily - we will restart the dose to prevent withdrawal 8. Thrombocytopenia: 12/03/2024: Heparin held today morning; continue SCDs Multifactorial etiology including acute ischemic liver injury, severe sepsis induced or heparin induced Continue monitoring at this time. 12/04/2024: Stop heparin -continue monitoring CBC closely 12/05/2024: Platelets constant at 55k -no signs of bleeding noted - started the patient on Eliquis for DVT prophylaxis; heparin stopped 12/06/2024: We will continue Eliquis 12/07/2024: Thrombocytopenia improving. Platelet count improved from 83 to 110 today 9. Severe protein energy malnutrition: Albumin 1.3 Questionable protein-losing enteropathy Nutrition consulted 10. Elevated BUN/creatinine ratio: Continue IV fluid resuscitation Follow stool for occult blood Dispo: Nonambulatory status at baseline. Lives in [facility]. Awaiting HIDA scan results. Lines: PIV Code status: DNR DVT prophylaxis: SCDs, Eliquis GI prophylaxis: Protonix IV Prognosis: Guarded Beatriz Zaragoza PGY2, Internal medicine resident Date of Service: December 07, 2024 Billing Provider: TARA HERNANDEZ MD Common Visit Codes: [id number] INP/OBS CARE(HIGH) BEATRIZ ZARAGOZA, NILES December 07, 2024 12:07 TARA HERNANDEZ MD December 07, 2024 19:15
--- NOTE | 2024-12-07 15:50 | RADIOLOGY REPORT ---
Procedure: NM NM HIDA SCAN Exam Date: 12/07/2024 01:40 PM Clinical History: polymicrobial sepsis with abnormal lfts Comparison Study: 12/06/2024 Nuclear Medicine Hepatobiliary Scan. Technique: Following the intravenous administration of 5.4 mCi of technetium 99m labeled Choletec multiple plana r abdominal planar images were obtained in anterior projection in 5 minute intervals for 60 minutes . Findings: The liver appears grossly normal in size. There is no abnormal persistence of the cardiac or blood po ol activity. The small bowel is seen at approximately 25 minutes. Duodenal reflux. Gallbladder nonv isualized. Impression: 1. Findings consistent with cystic duct obstruction. 2. Duodenal reflux
[2024-12-08] VITALS (8 sets, daily range): BP systolic 108–134; BP diastolic 61–91; PULSE 100–123; RESP 12–23; TEMP 96.9–98.9; O2SAT 23–99
[2024-12-08] MEDS: HYDROcodone/acetaminophen 5mg/325mg tablet PO ONE ×2 (00:46→11:40)
[2024-12-08 09:18] LABS: BASOPHILS % (AUTO) 0.3 % (0-1); EOSINOPHILS # (AUTO) 0.1 X10'3 (0-0.9); HEMATOCRIT 34.4 % (42.0-52.0); HEMOGLOBIN 11.5 g/dl (14.0-17.9); LYMPHOCYTES # (AUTO) 1.8 X10'3 (1.1-4.8); LYMPHOCYTES % (AUTO) 17.1 % (21-51); MEAN CORPUSCULAR HEMOGLOBIN 31.5 PG (27.0-31.0); MEAN CORPUSCULAR HGB CONC 33.5 g/dL (33.0-36.5); MEAN CORPUSCULAR VOLUME 93.8 FL (78-98); MEAN PLATELET VOLUME 9.2 FL (7.4-10.4); MONOCYTES # (AUTO) 0.7 X10'3 (0-0.9); MONOCYTES % (AUTO) 6.2 % (2-12); NEUTROPHILS % (AUTO) 75.4 % (42-75); PLATELET COUNT 149 X10'3 (140-440); RED BLOOD COUNT 3.67 X10'6 (4.70-6.10); RED CELL DISTRIBUTION WIDTH 15.2 % (11.5-14.5); WHITE BLOOD COUNT 10.6 X10'3 (4.5-11.0)
--- NOTE | 2024-12-08 09:34 | PROGRESS NOTE ---
Progress Note Dictate Providers to CC ~ Subjective Subjective: He still has some SOB but his O2 was off. Still with some abdominal discomfort. No fever. Objective Objective: GENERAL: Pleasant elderly male, currently awake and lying in bed looking stable LUNGS: Clear to auscultation bilaterally. HEART: Irregularly irregular. ABDOMEN: Soft without significant distention but still operator gin (appears to be most significant right side) EXTREMITIES: No significant edema. Lab Results: 12/08/24 0635 12/07/24 0640 Lab comments: lipase normal Radiology comments: HIDA - GB not visualized Problem\Assessment\Plan Additional Plan 1. Polymicrobial sepsis due to Streptococcus anginosus and E. coli of unclear etiology. These organisms would support a gastrointestinal source, and now concern for cholecystitis given HIDA 2. Severe sepsis with significant leukocytosis and fever on presentation - improved Lactic acidosis and ARSH have resolved. Continue Unasyn Follow-up MRCP Needs surgical consult DILAN ZAMORA MD December 08, 2024 09:34
[2024-12-08 09:48] LABS: ALANINE AMINOTRANSFERASE 131 U/L (12-78); ALBUMIN 1.7 G/DL (3.4-5.0); ALBUMIN/GLOBULIN RATIO 0.5 (1.1-1.5); ALKALINE PHOSPHATASE 378 IU/L (46-116); ANION GAP 5 (8-16); ASPARTATE AMINO TRANSFERASE 99 U/L (10-37); BILIRUBIN,TOTAL 1.1 MG/DL (0.1-1.0); BLOOD UREA NITROGEN 13 MG/DL (7-18); BUN/CREATININE RATIO 17.8 (10.0-20.0); CALCIUM 7.7 MG/DL (8.5-10.1); CHLORIDE 109 MMOL/L (99-107); CREATININE 0.73 MG/DL (0.60-1.10); GLUCOSE 80 MG/DL (70-104); POTASSIUM 3.6 MMOL/L (3.5-5.1); SODIUM 144 MMOL/L (135-145); TOTAL CARBON DIOXIDE 29.7 MMOL/L (24-32); TOTAL PROTEIN 5.1 G/DL (6.4-8.2); eCRCL 75 ML/MIN; eGFR > 90 ML/MIN
[2024-12-08 13:06] LABS: OCCULT BLOOD STOOL NEGATIVE (Neg)
[2024-12-08] MEDS: lactose-reduced food (Ensure Enlive) - 237ml bottle PO SCH (13:07)
--- NOTE | 2024-12-08 16:14 | PROGRESS NOTE- Residence ---
Progress Note - Resident Providers to CC Resident Creating Document: BEATRIZ ZARAGOZA, NILES ~ Central Line/PICC still needed: No Holman-Non Protocol Holman Indications Met/Not Met: F/C Indications Not Met Antibiotic Timeout Antibiotic Ordered?: Yes Subjective Continues to complain of some pain across the upper abdomen but otherwise comfortable. Overnight, the patient declined wearing his foot drop boots because of cramping lower limb and back pain which resolved with a [facility]. Objective Vital Signs Date Time Temp Pulse Resp B/P (MAP) Pulse Ox O2 Delivery O2 Flow Rate FiO2 12/08/24 11:40 14 12/08/24 10:00 98.1 123 108/61 (77) 99 12/08/24 08:00 Nasal Cannula 2.0 12/07/24 08:00 32 Result Diagram: 12/08/24 0635 12/08/24 06 General: Awake and Alert, no acute distress. HEENT: Conjunctiva pink, Sclera clear, Mucus Membranes moist. Resp: Bilateral air entry present. Mild basilar crackles heard Heart: Regular Rate and rhythm, normal S1 and S2 without murmur, rub or gallop. Abdomen: Tenderness across the upper quadrant. Bowel sounds present Extremities: Bilateral 2+ pitting edema of upper and lower extremities. Skin: Warm and Dry. Coagulation Studies Laboratory Tests Test 12/02/24 01:11 Prothrombin Time 14.6 SECONDS (9.0-12.0) H INR International Normalized Ratio 1.5 INR Coagulation Comments Assessment Assessment 84-year-old male patient with a past medical history of hypertension, sleep apnea, CAD, heart failure with reduced EF, allergies on chronic prednisone treatment, recurrent UTIs, and chronic constipation presents to the hospital from [facility] as a long-term resident with fever, hypotension, tachycardia, and diarrhea. Reports that symptoms had begun three days ago prior to his patient to the hospital. He is currently being evaluated and managed for severe sepsis. Plan Plan 1. Septic shock: POA Source likely secondary to UTI, CPAP and GI Acute diarrheal illness- differentials including overt use of laxatives/gastroenteritis/acute choledocholithiasis 12/02/2024: WBC 40.4, procalcitonin 44.23, lactic acid 9.0 to 6.7. Temperature 101.3 Chest x-ray clear, no wounds on body, urinalysis negative for leukocyte esterase and nitrites. However 1+ bacteria was found. Follow up with cultures. History of UTI with multiple drug-resistant Klebsiella Follow up with blood cultures. Follow up with echocardiogram for evidence of any vegetations. Ongoing watery stools; C difficile testing ordered Treatment with IV Rocephin and vancomycin Blood pressure currently 89/58 with a map above 65 mmHg. He received 3 L of NS boluses in the ER. Continue NS at 100 mL/hour. 12/03/2024: - leukocytosis improving, decreased to 20k - no further reported fevers. - overnight lactic acid significantly increased to 5.7, requiring 2 L of IV fluid boluses lactic acid decreased down to 2.4. Hypernatremia secondary to above. Patient currently on D5 half NS. Repeat lactic acid - blood cultures positive for Gram-positive cocci in pairs and chains; also positive for Gram-negative rods - discontinue vancomycin today. Continue Zosyn - C diff stool negative. Culture of stool, WBCs in stool awaited - follow repeat chest x-ray as the initial chest x-ray revealed no significant findings. Initial CT scan however revealed bilateral basilar ground-glass opacities. - repeat swallow eval to be performed for patient's risk of aspiration; we will modify diet accordingly. For now full liquid diet until next swallow eval 12/04/2024: - Improvement in white count noted. Lactic acid normalized. No further episodes of hypotension, did not require further IV fluid boluses. - Blood cultures positive for E coli and Streptococcus anginosus. - CT chest abdomen and pelvis done on day one of admission revealed absence of any intra-abdominal abscesses. Only identification of possible abscesses dental. We will obtain ID opinion - continuing Zosyn day 3 - repeat swallow eval performed today. Patient to be NPO. Continue IV dextrose with half-normal saline 12/05/2024: Leukocytosis resolved - no new other signs of sepsis; vitals stable - antibiotics switched to Unasyn today - started the patient on a diet as he is more awake and alert 12/06/2024: - we will continue Unasyn and we will touch base with Dr. Jimenez for antibiotic recommendation. Patient reported pain in knee and we started tramadol 50 mg q.4 H. 12/07/2024: - continue Unasyn - mild leukocytosis noted today. Follow procalcitonin - HIDA scan ordered. HIDA scan reveals bile duct obstruction. We will contact GI for ERCP. Patient to be maintained NPO - awaiting stool culture. 12/08/2024: Up trending transaminases MRCP performed, awaiting results Protocol improving Continue Unasyn - ID following. Dr. Pal made aware yesterday 2. Paroxysmal atrial fibrillation: 12/03/2024: EKG will be obtained for records CHADS-VASc score: 3, has bled score 2 We will start the patient on Eliquis; currently not requiring rate control medications IV Lopressor if heart rate increases Aware of increased BUN/creatinine ratio, we will follow stool for occult blood Discontinue aspirin in view of elevated risk of bleeding in the 85-year-old Closely monitor H&H Telemetry monitoring to be continued 12/06/2024. No new episodes of AFib -Continue Eliquis 5 mg b.i.d. 12/08/2024: No acute hemodynamic stability noted. Continuing the Eliquis with no complications at this time 3. Heart failure with reduced ejection fraction: In no acute exacerbation ProBNP 5610, EF 40-45% - currently on 3-4 L oxygen - cautious IV fluid resuscitation for sepsis. Closely monitor increasing oxygen requirements. - follow repeat chest x-ray. If fluid overload, we will administer one dose of IV Lasix - continue close monitoring of oxygen requirements 12/04/2024: Fluids ongoing. In no acute distress. - Continues to require 4lts of O2. - MIld b/l basilar crepts heard, further decreasing fluids to 50cc/hr. Will closely monitor the Na - Close monitoring of his oxygen saturation and physical exam we will be maintain to prevent acute exacerbation of his heart failure. 12/05/2024: No worsening oxygenation. Continues to be on 4 L. We will start a full liquid diet, advance to soft diet tomorrow and watch for improvement. If eating well, we will discontinue the fluids 12/06/2024: We will continue the oxygen with 4 L. IV fluids stopped. Encourage p.o. intake 12/07/2024: - decreased nasal cannula oxygen from 4 L to 2 L. Baseline oxygen of 1-2 L at the facility - small bilateral pleural effusions noted on the chest x-ray - no increase in cough or shortness of breath. We will closely monitor. - aspiration precautions to be continued 4. Transaminitis: Recurrence Hyperbilirubinemia- direct Likely hypotension induced 12/03/2024: Bilirubin elevated to 2.7, AST greater than ALT by less than 3 times, elevated alkaline phosphatase Bilirubin contributed by direct elevation Follow up abdominal ultrasound for CBD and gallbladder 12/04/2024: Improved labs today Abdominal ultrasound ruled out presence of cirrhosis or CBD dilatation or cholecystitis. Only significant for enlarged gallbladder 12/05/2024: Transaminitis is off. Bilirubin normal Nonspecific elevation in alkaline phosphatase 12/06/2024. Alkaline phosphatase is downtrending 5. Subclinical hyperthyroidism: TSH 0.3, normal free T4 Repeat in three months 6. Hypernatremia: Resolved Hyperchloremia with low bicarb Secondary to IV fluid resuscitation - continuing D5 half NS. Continuing at 50 cc/hour - repeat CMP and we will slowly decrease rate further in view of underlying heart failure with reduced EF 12/06/2024 : serum sodium is downtrended from 150-147 12/07/2024: Hypernatremia resolved. 7. Chronic steroid use disorder: Indication unknown - 10 mg p.o. daily - we will restart the dose to prevent withdrawal 8. Thrombocytopenia: Resolved 12/03/2024: Heparin held today morning; continue SCDs Multifactorial etiology including acute ischemic liver injury, severe sepsis induced or heparin induced Continue monitoring at this time. 12/04/2024: Stop heparin -continue monitoring CBC closely 12/05/2024: Platelets constant at 55k -no signs of bleeding noted - started the patient on Eliquis for DVT prophylaxis; heparin stopped 12/06/2024: We will continue Eliquis 12/07/2024: Thrombocytopenia improving. Platelet count improved from 83 to 110 today 12/08/24: Thrombocytopenia resolved 9. Severe protein energy malnutrition: Albumin 1.3 Questionable protein-losing enteropathy Nutrition consulted 10. Elevated BUN/creatinine ratio: Continue IV fluid resuscitation Follow stool for occult blood Dispo: Nonambulatory status at baseline. Lives in [facility]. Awaiting MRCP results Lines: PIV Code status: DNR DVT prophylaxis: SCDs, Eliquis GI prophylaxis: Protonix IV Prognosis: Guarded Beatriz Zaragoza PGY2, Internal medicine resident Date of Service: December 08, 2024 Billing Provider: TARA HERNANDEZ MD Common Visit Codes: [id number] INP/OBS CARE(HIGH) BEATRIZ ZARAGOZA, RES December 08, 2024 16:14 TARA HERNANDEZ MD December 08, 2024 16:48
--- NOTE | 2024-12-08 16:40 | RADIOLOGY REPORT ---
PROCEDURE: MR MRCP Indication: Abdominal pain COMPARISON: 12/07/2024, 12/06/2024 CT abdomen TECHNIQUE: Multiplanar multisequence images of the abdomen are obtained per MRCP protocol.. FINDINGS: Examination severely degraded by motion. Gallbladder distention. The common bile duct measures approximately 10 mm in diameter. Cholelithiasis . Distal CBD calculi measuring 2-3 mm. Small bilateral pleural effusions. Bibasilar atelectasis/ consolidation. No hydronephrosis. Mesenteric edema. Spleen unremarkable in shape. Small hiatal hernia. IMPRESSION: Examination severely degraded by motion. Cholelithiasis and hydropic gallbladder, concerning for cholecystitis. Dilated common bile duct rafa uring 10 mm with distal CBD calculi. Please note previous HIDA scan findings for cystic duct obstruct ion. Bilateral pleural effusions.
[2024-12-08] MEDS: HYDROcodone/acetaminophen 5mg/325mg tablet PO PRN (22:27)
[2024-12-09] VITALS (8 sets, daily range): BP systolic 104–140; BP diastolic 68–86; PULSE 63–114; RESP 14–23; TEMP 97.2–98.1; O2SAT 94–100
--- NOTE | 2024-12-09 08:29 | VASCULAR REPORT ---
Abdominal mesenteric Arterial Duplex Date: 12/09/2024 07:26 AM Clinical History: Abdominal pain Comparison: None Technique: Duplex Doppler evaluation including color Doppler and spectral/pulsed waveform analysis of the aorta and mesenteric arteries was performed. FINDINGS/IMPRESSION: Aorta peak systolic velocity measures 49 cm/sec. Unable to visualize the superior mesenteric artery, inferior mesenteric artery, celiac artery, hepati c artery and splenic artery secondary to extensive shadowing from overlying bowel gas.
[2024-12-09] MEDS: ondansetron/PF 4mg/2ml inj IV PRN (10:01)
--- NOTE | 2024-12-09 10:35 | PROGRESS NOTE ---
Progress Note Dictate Providers to CC ~ Subjective Subjective: I was told the primary team has notify Dr. Hood. He continues to have abdominal discomfort. Objective Objective: GENERAL: Pleasant elderly male, currently awake and lying in bed looking stable LUNGS: Clear to auscultation bilaterally. HEART: Irregularly irregular. ABDOMEN: Soft without significant distention but centrifugal machine tender (appears to be most significant right side) EXTREMITIES: No significant edema. Lab Results: 12/08/24 0635 12/08/24 0635 Radiology comments: MRCP with cholelithiasis and hydropic gallbladder, concerning for cholecystitis. Dilated common bile duct measuring 10 mm with distal CBD calculi. Problem\Assessment\Plan Additional Plan 1. Polymicrobial sepsis due to Streptococcus anginosus and E. coli of unclear etiology. These organisms would support a gastrointestinal source, and now concern for cholecystitis/cholangitis given HIDA and MRCP 2. Severe sepsis with significant leukocytosis and fever on presentation - improved Lactic acidosis and ARSH have resolved. Continue Unasyn Await Dr. Hood's input Cholecystectomy versus cholecystostomy May need ERCP to deal with CBD stone (Dr. Pal also aware of patient) DILAN ZAMORA MD December 09, 2024 10:35
[2024-12-09] MEDS: dextrose 5%-normal saline 1,000 ML IV SCH (15:44)
--- NOTE | 2024-12-09 15:50 | PROGRESS NOTE- Residence ---
Progress Note - Resident Providers to CC Resident Creating Document: BEATRIZ ZARAGOZA, NILES ~ Central Line/PICC still needed: No Holman-Non Protocol Holman Indications Met/Not Met: F/C Indications Not Met Antibiotic Timeout Antibiotic Ordered?: Yes Subjective Patient is comfortable with no acute distress. possible plan for surgical procedure tomorrow . PICC line placement placed. Objective Vital Signs Date Time Temp Pulse Resp B/P (MAP) Pulse Ox O2 Delivery O2 Flow Rate FiO2 12/09/24 11:00 98.1 67 20 124/77 (93) 94 Nasal Cannula 2.0 12/07/24 08:00 32 Result Diagram: 12/08/24 0635 12/08/24 0635 General: Awake and Alert, no acute distress. HEENT: Conjunctiva pink, Sclera clear, Mucus Membranes moist. Resp: Bilateral air entry present. Mild basilar crackles heard Heart: Regular Rate and rhythm, normal S1 and S2 without murmur, rub or gallop. Abdomen: Tenderness across the upper quadrant. Bowel sounds present Extremities: Bilateral 2+ pitting edema of upper and lower extremities. Skin: Warm and Dry. Coagulation Studies Laboratory Tests Test 12/02/24 01:11 Prothrombin Time 14.6 SECONDS (9.0-12.0) H INR International Normalized Ratio 1.5 INR Coagulation Comments Assessment Assessment 84-year-old male patient with a past medical history of hypertension, sleep apnea, CAD, heart failure with reduced EF, allergies on chronic prednisone treatment, recurrent UTIs, and chronic constipation presents to the hospital from [facility] as a long-term resident with fever, hypotension, tachycardia, and diarrhea. Reports that symptoms had begun three days ago prior to his patient to the hospital. He is currently being evaluated and managed for severe sepsis. Plan Plan 1. Septic shock: POA Source likely secondary to UTI, CPAP and GI Acute diarrheal illness- differentials including overt use of laxatives/gastroenteritis/acute choledocholithiasis 12/02/2024: WBC 40.4, procalcitonin 44.23, lactic acid 9.0 to 6.7. Temperature 101.3 Chest x-ray clear, no wounds on body, urinalysis negative for leukocyte esterase and nitrites. However 1+ bacteria was found. Follow up with cultures. History of UTI with multiple drug-resistant Klebsiella Follow up with blood cultures. Follow up with echocardiogram for evidence of any vegetations. Ongoing watery stools; C difficile testing ordered Treatment with IV Rocephin and vancomycin Blood pressure currently 89/58 with a map above 65 mmHg. He received 3 L of NS boluses in the ER. Continue NS at 100 mL/hour. 12/03/2024: - leukocytosis improving, decreased to 20k - no further reported fevers. - overnight lactic acid significantly increased to 5.7, requiring 2 L of IV fluid boluses lactic acid decreased down to 2.4. Hypernatremia secondary to above. Patient currently on D5 half NS. Repeat lactic acid - blood cultures positive for Gram-positive cocci in pairs and chains; also positive for Gram-negative rods - discontinue vancomycin today. Continue Zosyn - C diff stool negative. Culture of stool, WBCs in stool awaited - follow repeat chest x-ray as the initial chest x-ray revealed no significant findings. Initial CT scan however revealed bilateral basilar ground-glass opacities. - repeat swallow eval to be performed for patient's risk of aspiration; we will modify diet accordingly. For now full liquid diet until next swallow eval 12/04/2024: - Improvement in white count noted. Lactic acid normalized. No further episodes of hypotension, did not require further IV fluid boluses. - Blood cultures positive for E coli and Streptococcus anginosus. - CT chest abdomen and pelvis done on day one of admission revealed absence of any intra-abdominal abscesses. Only identification of possible abscesses dental. We will obtain ID opinion - continuing Zosyn day 3 - repeat swallow eval performed today. Patient to be NPO. Continue IV dextrose with half-normal saline 12/05/2024: Leukocytosis resolved - no new other signs of sepsis; vitals stable - antibiotics switched to Unasyn today - started the patient on a diet as he is more awake and alert 12/06/2024: - we will continue Unasyn and we will touch base with Dr. Jimenez for antibiotic recommendation. Patient reported pain in knee and we started tramadol 50 mg q.4 H. 12/07/2024: - continue Unasyn - mild leukocytosis noted today. Follow procalcitonin - HIDA scan ordered. HIDA scan reveals bile duct obstruction. We will contact GI for ERCP. Patient to be maintained NPO - awaiting stool culture. 12/08/2024: Up trending transaminases MRCP performed, awaiting results Protocol improving Continue Unasyn - ID following. Dr. Pal made aware yesterday 12/09/2024: Plan for surgery tomorrow for acute cholecystitis by Dr. Hood - PICC line to be placed for TPN as per Dr. Hood - prelim stool cultures negative for enteric pathogens - Repeat blood cultures negative for any growth - infectious disease on board 2. Paroxysmal atrial fibrillation: 12/03/2024: EKG will be obtained for records CHADS-VASc score: 3, has bled score 2 We will start the patient on Eliquis; currently not requiring rate control medications IV Lopressor if heart rate increases Aware of increased BUN/creatinine ratio, we will follow stool for occult blood Discontinue aspirin in view of elevated risk of bleeding in the 85-year-old Closely monitor H&H Telemetry monitoring to be continued 12/06/2024. No new episodes of AFib -Continue Eliquis 5 mg b.i.d. 12/08/2024: No acute hemodynamic stability noted. Continuing the Eliquis with no complications at this time 3. Heart failure with reduced ejection fraction: In no acute exacerbation ProBNP 5610, EF 40-45% - currently on 3-4 L oxygen - cautious IV fluid resuscitation for sepsis. Closely monitor increasing oxygen requirements. - follow repeat chest x-ray. If fluid overload, we will administer one dose of IV Lasix - continue close monitoring of oxygen requirements 12/04/2024: Fluids ongoing. In no acute distress. - Continues to require 4lts of O2. - MIld b/l basilar crepts heard, further decreasing fluids to 50cc/hr. Will closely monitor the Na - Close monitoring of his oxygen saturation and physical exam we will be maintain to prevent acute exacerbation of his heart failure. 12/05/2024: No worsening oxygenation. Continues to be on 4 L. We will start a full liquid diet, advance to soft diet tomorrow and watch for improvement. If eating well, we will discontinue the fluids 12/06/2024: We will continue the oxygen with 4 L. IV fluids stopped. Encourage p.o. intake 12/07/2024: - decreased nasal cannula oxygen from 4 L to 2 L. Baseline oxygen of 1-2 L at the facility - small bilateral pleural effusions noted on the chest x-ray - no increase in cough or shortness of breath. We will closely monitor. - aspiration precautions to be continued 4. Transaminitis: Recurrence, stable Hyperbilirubinemia- direct Likely hypotension induced 12/03/2024: Bilirubin elevated to 2.7, AST greater than ALT by less than 3 times, elevated alkaline phosphatase Bilirubin contributed by direct elevation Follow up abdominal ultrasound for CBD and gallbladder 12/04/2024: Improved labs today Abdominal ultrasound ruled out presence of cirrhosis or CBD dilatation or cholecystitis. Only significant for enlarged gallbladder 12/05/2024: Transaminitis is off. Bilirubin normal Nonspecific elevation in alkaline phosphatase 12/06/2024. Alkaline phosphatase is downtrending 12/09/2024: Awaiting surgery. Alkaline phos and bilirubin might improve after surgery. 5. Subclinical hyperthyroidism: TSH 0.3, normal free T4 Repeat in three months 6. Hypernatremia: Resolved Hyperchloremia with low bicarb Secondary to IV fluid resuscitation - continuing D5 half NS. Continuing at 50 cc/hour - repeat CMP and we will slowly decrease rate further in view of underlying heart failure with reduced EF 12/06/2024 : serum sodium is downtrended from 150-147 12/07/2024: Hypernatremia resolved. 7. Chronic steroid use disorder: Indication unknown - 10 mg p.o. daily - we will restart the dose to prevent withdrawal 8. Thrombocytopenia: Resolved 12/03/2024: Heparin held today morning; continue SCDs Multifactorial etiology including acute ischemic liver injury, severe sepsis induced or heparin induced Continue monitoring at this time. 12/04/2024: Stop heparin -continue monitoring CBC closely 12/05/2024: Platelets constant at 55k -no signs of bleeding noted - started the patient on Eliquis for DVT prophylaxis; heparin stopped 12/06/2024: We will continue Eliquis 12/07/2024: Thrombocytopenia improving. Platelet count improved from 83 to 110 today 12/08/24: Thrombocytopenia resolved 9. Severe protein energy malnutrition: Albumin 1.3 Questionable protein-losing enteropathy Nutrition consulted 10. Elevated BUN/creatinine ratio: Resolved Continue IV fluid resuscitation Follow stool for occult blood Dispo: Plan for surgery tomorrow. PICC line placed for TPN. Patient will likely require long-term antibiotic therapy. Lines: PIV Code status: DNR DVT prophylaxis: SCDs, Eliquis GI prophylaxis: Protonix IV Prognosis: Guarded Beatriz Zaragoza PGY2, Internal medicine resident Date of Service: December 09, 2024 Billing Provider: TARA HERNANDEZ MD Common Visit Codes: [id number] INP/OBS CARE(HIGH) BEATRIZ ZARAGOZA, NILES December 09, 2024 15:50 TARA HERNANDEZ MD December 09, 2024 18:50
[2024-12-09 17:27] LABS: BASOPHILS % (AUTO) 0.1 % (0-1); EOSINOPHILS % (AUTO) 0.2 % (0-6); HEMATOCRIT 33.7 % (42.0-52.0); HEMOGLOBIN 11.7 g/dl (14.0-17.9); LYMPHOCYTES # (AUTO) 1.1 X10'3 (1.1-4.8); LYMPHOCYTES % (AUTO) 11.4 % (21-51); MEAN CORPUSCULAR HEMOGLOBIN 32.1 PG (27.0-31.0); MEAN CORPUSCULAR HGB CONC 34.5 g/dL (33.0-36.5); MEAN CORPUSCULAR VOLUME 92.9 FL (78-98); MEAN PLATELET VOLUME 8.2 FL (7.4-10.4); MONOCYTES # (AUTO) 0.3 X10'3 (0-0.9); MONOCYTES % (AUTO) 3.5 % (2-12); NEUTROPHILS # (AUTO) 8.4 X10'3 (1.8-7.7); NEUTROPHILS % (AUTO) 84.8 % (42-75); PLATELET COUNT 212 X10'3 (140-440); RED BLOOD COUNT 3.63 X10'6 (4.70-6.10); RED CELL DISTRIBUTION WIDTH 14.7 % (11.5-14.5); WHITE BLOOD COUNT 9.9 X10'3 (4.5-11.0)
[2024-12-09 17:52] LABS: ALANINE AMINOTRANSFERASE 135 U/L (12-78); ALBUMIN 1.8 G/DL (3.4-5.0); ALBUMIN/GLOBULIN RATIO 0.5 (1.1-1.5); ALKALINE PHOSPHATASE 403 IU/L (46-116); ANION GAP 7 (8-16); ASPARTATE AMINO TRANSFERASE 67 U/L (10-37); BLOOD UREA NITROGEN 13 MG/DL (7-18); BUN/CREATININE RATIO 19.7 (10.0-20.0); CALCIUM 7.5 MG/DL (8.5-10.1); CHLORIDE 109 MMOL/L (99-107); CREATININE 0.66 MG/DL (0.60-1.10); GLUCOSE 116 MG/DL (70-104); POTASSIUM 3.6 MMOL/L (3.5-5.1); SODIUM 145 MMOL/L (135-145); TOTAL PROTEIN 5.2 G/DL (6.4-8.2); eCRCL 83 ML/MIN; eGFR > 90 ML/MIN
--- NOTE | 2024-12-09 17:58 | PROGRESS NOTE ---
Progress Note ID Providers to CC ~ Progress Note Progress Note: PT SEEN-WILL ASK IR TO PLACE CHOLECYSTOSTOMY IN AM BHAVNA CORBETT MD December 09, 2024 17:58
[2024-12-10] VITALS (21 sets, daily range): BP systolic 100–139; BP diastolic 77–99; PULSE 60–123; RESP 13–22; TEMP 97.1–98.4; O2SAT 93–99
[2024-12-10] MEDS: morphine 2 MG/ML inj. syringe IV ONE (00:33)
[2024-12-10] MEDS ORDERED: morphine 2 MG/ML inj. syringe IV PRN (04:20)
[2024-12-10] MEDS: morphine 2 MG/ML inj. syringe IV PRN (05:30)
[2024-12-10 07:23] LABS: BASOPHILS % (AUTO) 0.2 % (0-1); EOSINOPHILS # (AUTO) 0.1 X10'3 (0-0.9); EOSINOPHILS % (AUTO) 0.8 % (0-6); HEMATOCRIT 29.7 % (42.0-52.0); HEMOGLOBIN 9.9 g/dl (14.0-17.9); LYMPHOCYTES # (AUTO) 1.2 X10'3 (1.1-4.8); LYMPHOCYTES % (AUTO) 14.1 % (21-51); MEAN CORPUSCULAR HEMOGLOBIN 32.1 PG (27.0-31.0); MEAN CORPUSCULAR HGB CONC 33.3 g/dL (33.0-36.5); MEAN CORPUSCULAR VOLUME 96.3 FL (78-98); MEAN PLATELET VOLUME 7.9 FL (7.4-10.4); MONOCYTES # (AUTO) 0.5 X10'3 (0-0.9); MONOCYTES % (AUTO) 5.6 % (2-12); NEUTROPHILS # (AUTO) 6.6 X10'3 (1.8-7.7); NEUTROPHILS % (AUTO) 79.3 % (42-75); PLATELET COUNT 166 X10'3 (140-440); RED BLOOD COUNT 3.09 X10'6 (4.70-6.10); WHITE BLOOD COUNT 8.3 X10'3 (4.5-11.0)
--- NOTE | 2024-12-10 11:41 | PROGRESS NOTE ---
Progress Note Dictate Providers to CC ~ Subjective Subjective: He states that he has been hungry and he is hoping to get something done soon. I believe IR is going to place cholecystostomy today. Objective Objective: GENERAL: Pleasant elderly male, currently awake and lying in bed looking stable LUNGS: Clear to auscultation bilaterally. HEART: Irregularly irregular. ABDOMEN: Soft without significant distention but polishing machine tender (appears to be most significant right side) EXTREMITIES: No significant edema. Lab Results: 12/10/24 0612 12/09/24 1640 Problem\Assessment\Plan Additional Plan 1. Polymicrobial sepsis due to Streptococcus anginosus and E. coli of unclear etiology. These organisms would support a gastrointestinal source, and now concern for cholecystitis/cholangitis given HIDA and MRCP 2. Severe sepsis with significant leukocytosis and fever on presentation - improved Lactic acidosis and ARSH have resolved. Continue Unasyn IR for cholecystostomy today May still need ERCP to deal with CBD stone (Dr. Pal also aware of patient) DILAN ZAMORA MD December 10, 2024 11:41
[2024-12-10] MEDS ORDERED: magnesium Cl slow-release 64mg tablet PO PRN (13:30)
[2024-12-10] MEDS ORDERED: magnesium sulf-water 2g/50mL 50 ML IV PRN (13:30)
[2024-12-10] MEDS ORDERED: magnesium sulf-water 4G/100mL 100 ML IV PRN (13:30)
[2024-12-10] MEDS ORDERED: Dextrose 10%-water IV solution 1,000 ML IV PRN (13:30)
--- NOTE | 2024-12-10 14:24 | RADIOLOGY REPORT ---
EXAM: DI CHEST,SINGLE VIEW Indication: s/p Picc line, confirm placement Technique: Single frontal view of the chest was obtained Comparison: DI CHEST,SINGLE VIEW on DOS: 12/03/24, DI CHEST,SINGLE VIEW on DOS: 12/01/24, DI CHEST,SINGLE VIEW on DOS: 08/03/23, CHEST,SINGLE VIEW on DOS: 07/27/20 FINDINGS: Lines and Tubes: Right PICC tip projects over the cavoatrial junction. Lungs: Small left pleural effusion and left basilar opacity. No pneumothorax. Cardiomediastinal contours: Unremarkable Bones: No acute osseous abnormality. IMPRESSION: Right PICC tip projects over the cavoatrial junction. Small left pleural effusion and left basilar op acity.
[2024-12-10 14:46] LABS: ALANINE AMINOTRANSFERASE 118 U/L (12-78); ALBUMIN 1.8 G/DL (3.4-5.0); ALBUMIN/GLOBULIN RATIO 0.5 (1.1-1.5); ALKALINE PHOSPHATASE 341 IU/L (46-116); ANION GAP 6 (8-16); ASPARTATE AMINO TRANSFERASE 55 U/L (10-37); BILIRUBIN,TOTAL 0.8 MG/DL (0.1-1.0); BLOOD UREA NITROGEN 9 MG/DL (7-18); BUN/CREATININE RATIO 14.1 (10.0-20.0); CALCIUM 7.4 MG/DL (8.5-10.1); CHLORIDE 107 MMOL/L (99-107); CREATININE 0.64 MG/DL (0.60-1.10); GLUCOSE 126 MG/DL (70-104); MAGNESIUM 1.8 MG/DL (1.5-2.4); PHOSPHORUS 2.6 MG/DL (2.3-4.5); POTASSIUM 3.4 MMOL/L (3.5-5.1); PREALBUMIN 14.3 MG/DL (19-36); SODIUM 143 MMOL/L (135-145); TOTAL CARBON DIOXIDE 30.1 MMOL/L (24-32); TOTAL PROTEIN 5.1 G/DL (6.4-8.2); TRIGLYCERIDES 95 MG/DL (20-135); eCRCL 86 ML/MIN; eGFR > 90 ML/MIN
--- NOTE | 2024-12-10 16:08 | PROGRESS NOTE- Residence ---
Progress Note - Resident Providers to CC Resident Creating Document: BEATRIZ ZARAGOZA, NILES ~ Central Line/PICC still needed: No Holman-Non Protocol Holman Indications Met/Not Met: F/C Indications Not Met Antibiotic Timeout Antibiotic Ordered?: Yes Subjective Patient denies any further abdominal pain. He states he has awaiting for the next plan but has no other complaints Objective Vital Signs Date Time Temp Pulse Resp B/P (MAP) Pulse Ox O2 Delivery O2 Flow Rate FiO2 12/10/24 15:38 16 12/10/24 14:58 98.0 68 139/85 (103) 96 Nasal Cannula 2.0 12/10/24 08:45 32 Result Diagram: 12/10/24 0612 12/10/24 1418 General: Awake and Alert, no acute distress. HEENT: Conjunctiva pink, Sclera clear, Mucus Membranes moist. Resp: Bilateral air entry present. Diminished bilateral basilar breath sounds Heart: Regular Rate and rhythm, normal S1 and S2 without murmur, rub or gallop. Abdomen: Tenderness across the upper quadrant. Bowel sounds present Extremities: Diffuse bilateral pitting edema of both upper and lower extremities of 2 to 3+ Skin: Warm and Dry. Coagulation Studies Laboratory Tests Test 12/02/24 01:11 Prothrombin Time 14.6 SECONDS (9.0-12.0) H INR International Normalized Ratio 1.5 INR Coagulation Comments Assessment Assessment 84-year-old male patient with a past medical history of hypertension, sleep apnea, CAD, heart failure with reduced EF, allergies on chronic prednisone treatment, recurrent UTIs, and chronic constipation presents to the hospital from [facility] as a long-term resident with fever, hypotension, tachycardia, and diarrhea. Reports that symptoms had begun three days ago prior to his patient to the hospital. He is currently being evaluated and managed for severe sepsis. Plan Plan 1. Septic shock: POA Source likely secondary to UTI/acute obstructive cholangitis induced Blood cultures positive for E coli and Streptococcus anginosus Acute diarrheal illness- differentials including overt use of laxatives/gastroenteritis/acute obstructive choledocholithiasis; stool culture negative, no WBCs 12/02/2024: WBC 40.4, procalcitonin 44.23, lactic acid 9.0 to 6.7. Temperature 101.3 Chest x-ray clear, no wounds on body, urinalysis negative for leukocyte esterase and nitrites. However 1+ bacteria was found. Follow up with cultures. History of UTI with multiple drug-resistant Klebsiella Follow up with blood cultures. Follow up with echocardiogram for evidence of any vegetations. Ongoing watery stools; C difficile testing ordered Treatment with IV Rocephin and vancomycin Blood pressure currently 89/58 with a map above 65 mmHg. He received 3 L of NS boluses in the ER. Continue NS at 100 mL/hour. 12/03/2024: - leukocytosis improving, decreased to 20k - no further reported fevers. - overnight lactic acid significantly increased to 5.7, requiring 2 L of IV fluid boluses lactic acid decreased down to 2.4. Hypernatremia secondary to above. Patient currently on D5 half NS. Repeat lactic acid - blood cultures positive for Gram-positive cocci in pairs and chains; also positive for Gram-negative rods - discontinue vancomycin today. Continue Zosyn - C diff stool negative. Culture of stool, WBCs in stool awaited - follow repeat chest x-ray as the initial chest x-ray revealed no significant findings. Initial CT scan however revealed bilateral basilar ground-glass opacities. - repeat swallow eval to be performed for patient's risk of aspiration; we will modify diet accordingly. For now full liquid diet until next swallow eval 12/04/2024: - Improvement in white count noted. Lactic acid normalized. No further episodes of hypotension, did not require further IV fluid boluses. - Blood cultures positive for E coli and Streptococcus anginosus. - CT chest abdomen and pelvis done on day one of admission revealed absence of any intra-abdominal abscesses. Only identification of possible abscesses dental. We will obtain ID opinion - continuing Zosyn day 3 - repeat swallow eval performed today. Patient to be NPO. Continue IV dextrose with half-normal saline 12/05/2024: Leukocytosis resolved - no new other signs of sepsis; vitals stable - antibiotics switched to Unasyn today - started the patient on a diet as he is more awake and alert 12/06/2024: - we will continue Unasyn and we will touch base with Dr. Jimenez for antibiotic recommendation. Patient reported pain in knee and we started tramadol 50 mg q.4 H. 12/07/2024: - continue Unasyn - mild leukocytosis noted today. Follow procalcitonin - HIDA scan ordered. HIDA scan reveals bile duct obstruction. We will contact GI for ERCP. Patient to be maintained NPO - awaiting stool culture. 12/08/2024: Up trending transaminases MRCP performed, awaiting results Protocol improving Continue Unasyn - ID following. Dr. Pal made aware yesterday 12/09/2024: Plan for surgery tomorrow for acute cholecystitis by Dr. Hood - PICC line to be placed for TPN as per Dr. Hood - prelim stool cultures negative for enteric pathogens - Repeat blood cultures negative for any growth - infectious disease on board 12/10/2024: Awaiting cholecystostomy tube to be placed by IR today - re-contacted Dr. Pal in view of the CBD stones, he states that the CBD is dilated but but likely not secondary to obstructing calculi. Recommends following with CT scan with pancreatic protocol to identify for possible obstructing pancreatic masses as EUS is not available in the facility. The same has been ordered - PICC line placement for prolonged NPO status and starting TPN - continuing Unasyn as per Dr. Jimenez recommendations - Eliquis on hold for the last two days - WBCs normalized and pain abdomen resolved. Ongoing worsening of alkaline phosphatase; bilirubin normalized - continue monitoring liver function tests 2. Paroxysmal atrial fibrillation: 12/03/2024: EKG will be obtained for records CHADS-VASc score: 3, has bled score 2 We will start the patient on Eliquis; currently not requiring rate control medications IV Lopressor if heart rate increases Aware of increased BUN/creatinine ratio, we will follow stool for occult blood Discontinue aspirin in view of elevated risk of bleeding in the 85-year-old Closely monitor H&H Telemetry monitoring to be continued 12/06/2024. No new episodes of AFib -Continue Eliquis 5 mg b.i.d. 12/08/2024: No acute hemodynamic stability noted. Continuing the Eliquis with no complications at this time 12/09/2024: Holding Eliquis in view of the procedure 3. Heart failure with reduced ejection fraction: In no acute exacerbation ProBNP 5610, EF 40-45% - currently on 3-4 L oxygen - cautious IV fluid resuscitation for sepsis. Closely monitor increasing oxygen requirements. - follow repeat chest x-ray. If fluid overload, we will administer one dose of IV Lasix - continue close monitoring of oxygen requirements 12/04/2024: Fluids ongoing. In no acute distress. - Continues to require 4lts of O2. - MIld b/l basilar crepts heard, further decreasing fluids to 50cc/hr. Will closely monitor the Na - Close monitoring of his oxygen saturation and physical exam we will be maintain to prevent acute exacerbation of his heart failure. 12/05/2024: No worsening oxygenation. Continues to be on 4 L. We will start a full liquid diet, advance to soft diet tomorrow and watch for improvement. If eating well, we will discontinue the fluids 12/06/2024: We will continue the oxygen with 4 L. IV fluids stopped. Encourage p.o. intake 12/07/2024: - decreased nasal cannula oxygen from 4 L to 2 L. Baseline oxygen of 1-2 L at the facility - small bilateral pleural effusions noted on the chest x-ray - no increase in cough or shortness of breath. We will closely monitor. - aspiration precautions to be continued 12/10/2024: Ongoing steady maintain requirement of oxygen of 1-2 L 4. Subclinical hyperthyroidism: TSH 0.3, normal free T4 Repeat in three months 5. Hypernatremia: Resolved Hyperchloremia with low bicarb Secondary to IV fluid resuscitation - continuing D5 half NS. Continuing at 50 cc/hour - repeat CMP and we will slowly decrease rate further in view of underlying heart failure with reduced EF 12/06/2024 : serum sodium is downtrended from 150-147 12/07/2024: Hypernatremia resolved. 7. Chronic steroid use disorder: Indication unknown - 10 mg p.o. daily - we will restart the dose to prevent withdrawal 8. Thrombocytopenia: Resolved 12/03/2024: Heparin held today morning; continue SCDs Multifactorial etiology including acute ischemic liver injury, severe sepsis induced or heparin induced Continue monitoring at this time. 12/04/2024: Stop heparin -continue monitoring CBC closely 12/05/2024: Platelets constant at 55k -no signs of bleeding noted - started the patient on Eliquis for DVT prophylaxis; heparin stopped 12/06/2024: We will continue Eliquis 12/07/2024: Thrombocytopenia improving. Platelet count improved from 83 to 110 today 12/08/24: Thrombocytopenia resolved 9. Severe protein energy malnutrition: Peripheral edema secondary to above versus prolonged immobilization Albumin 1.3 Questionable protein-losing enteropathy Nutrition consulted 10. Elevated BUN/creatinine ratio: Resolved Continue IV fluid resuscitation Follow stool for occult blood Dispo: Awaiting cholecystostomy tube placement by IR today. Dr. Pal also requested for a CT pancreatic protocol for possible pancreatic mass obstructing the bile duct leading to bile duct dilatation. PICC line placed. Dr. Jimenez and surgery following. If patient remained stable after the procedure and no further plans of interventions, after consulting Dr. Jimenez and Dr. Hood, we will likely discharge the patient back to [facility] Lines: PIV Code status: DNR DVT prophylaxis: SCDs GI prophylaxis: Protonix IV Prognosis: Guarded Beatriz Zaragoza PGY2, Internal medicine resident Date of Service: December 10, 2024 Billing Provider: TARA HERNANDEZ MD Common Visit Codes: [id number] INP/OBS CARE(HIGH) BEATRIZ ZARAGOZA, NILES December 10, 2024 16:08 TARA HERNANDEZ MD December 10, 2024 19:09
[2024-12-10] MEDS ORDERED: midazolam 1 mg/ML 2ml injection ONE (17:04)
[2024-12-10] MEDS ORDERED: fentaNYL/PF 50MCG/1 ML 2ML syringe ONE (17:04)
--- NOTE | 2024-12-10 17:50 | PROGRESS NOTE ---
Progress Note - Angio Providers to CC ~ Angio Progress Note: After explaining risks benefits alt of GB drainage catheter placement, informed consent disclosed. Surgical timeout and CT placement single puncture transhepatic GB access with 8.5Fr pigtail placed to TORSTEN bulb for a week then gravity drain is ok if clinically stable. May flush with 5-10cc NS bid. Dictated. EBL none, complications none. NATALI SAHA MD December 10, 2024 17:50
[2024-12-10] MEDS: dextrose 5%-lactated ringers 1,000 ML IV SCH (18:10)
--- NOTE | 2024-12-10 18:13 | RADIOLOGY REPORT ---
EXAM: CT-guided drainage of gallbladder 8.5 Spanish percutaneous transhepatic placement HISTORY: krysta tube per [place] PROCEDURE: The procedure, alternatives, benefits, and risks were discussed with the patient and written, informed consent was disclosed to the patient. ESTIMATED BLOOD LOSS: 0 The right upper quadrant was scanned with CT and an appropriate position marked at the skin. After sterile preparation and draping of the skin, subcutaneous lidocaine anesthesia was administered. The fluid collection was entered with a 5 Spanish [place] catheter. The catheter was attached to suction and fluid was aspirated. Slightly viscous dark bile was aspirated with sample sent to laboratory for culture and sensitivity. Next the system was upsized over an 035 wire up to 8.5 Spanish pigtail catheter. A total of 10 cc of saline was used to lavage. The catheter was removed after fluid was no longer able to be removed. The catheter was connected to TORSTEN suction bulb. The patient tolerated the procedure well without complication. DLP 1366.96 MEDICATIONS: 1% lidocaine 8 cc subcutaneous. FINDINGS: Fluid was removed, 20 mL. Samples were sent to the lab for analysis. IMPRESSION: CT guided drainage of markedly enlarged gallbladder with slightly increased viscosity bile. 8.5 Spanish drainage catheter placed.
[2024-12-10] MEDS ORDERED: potassium Cl 20 mEq SR tablet PO PRN (18:55)
[2024-12-10] MEDS ORDERED: potassium Cl 40MEQ/1/2NS 520ml 520 ML IV PRN ×2 (18:55)
[2024-12-10] MEDS ORDERED: potassium Cl 40MEQ/270ML bag 270 ML IV PRN (18:55)
[2024-12-10] MEDS: potassium Cl 40MEQ/270ML bag 270 ML IV PRN (20:46)
[2024-12-10] MEDS: fat emulsion 20% inj. 100 ML IV SCH (23:32)
[2024-12-10] MEDS: ZINC/COPPER/MANGANESE/SELENIUM 1 ML, chromic chloride inj. 10 MCG in AA 5%/CALCIUM/LYTE... IV SCH (23:36)
[2024-12-11] VITALS (20 sets, daily range): BP systolic 67–140; BP diastolic 68–93; PULSE 92–120; RESP 16–24; TEMP 97.1–98.2; O2SAT 93–98
[2024-12-11 06:29] LABS: BASOPHILS % (AUTO) 0.2 % (0-1); EOSINOPHILS % (AUTO) 0.4 % (0-6); HEMATOCRIT 32.5 % (42.0-52.0); HEMOGLOBIN 11.1 g/dl (14.0-17.9); LYMPHOCYTES # (AUTO) 0.9 X10'3 (1.1-4.8); LYMPHOCYTES % (AUTO) 9.4 % (21-51); MEAN CORPUSCULAR HEMOGLOBIN 32.1 PG (27.0-31.0); MEAN CORPUSCULAR HGB CONC 34.1 g/dL (33.0-36.5); MEAN CORPUSCULAR VOLUME 94.1 FL (78-98); MEAN PLATELET VOLUME 7.9 FL (7.4-10.4); MONOCYTES # (AUTO) 0.4 X10'3 (0-0.9); MONOCYTES % (AUTO) 4.3 % (2-12); NEUTROPHILS # (AUTO) 7.9 X10'3 (1.8-7.7); NEUTROPHILS % (AUTO) 85.7 % (42-75); PLATELET COUNT 201 X10'3 (140-440); RED BLOOD COUNT 3.45 X10'6 (4.70-6.10); WHITE BLOOD COUNT 9.2 X10'3 (4.5-11.0)
[2024-12-11 06:36] LABS: ALANINE AMINOTRANSFERASE 98 U/L (12-78); ALBUMIN 1.6 G/DL (3.4-5.0); ALBUMIN/GLOBULIN RATIO 0.5 (1.1-1.5); ALKALINE PHOSPHATASE 269 IU/L (46-116); ANION GAP 4 (8-16); ASPARTATE AMINO TRANSFERASE 40 U/L (10-37); BILIRUBIN,TOTAL 0.6 MG/DL (0.1-1.0); BLOOD UREA NITROGEN 9 MG/DL (7-18); BUN/CREATININE RATIO 16.4 (10.0-20.0); CALCIUM 7.5 MG/DL (8.5-10.1); CHLORIDE 108 MMOL/L (99-107); CREATININE 0.55 MG/DL (0.60-1.10); GLUCOSE 121 MG/DL (70-104); MAGNESIUM 1.8 MG/DL (1.5-2.4); PHOSPHORUS 2.3 MG/DL (2.3-4.5); POTASSIUM 3.5 MMOL/L (3.5-5.1); SODIUM 143 MMOL/L (135-145); TOTAL CARBON DIOXIDE 30.8 MMOL/L (24-32); TOTAL PROTEIN 4.6 G/DL (6.4-8.2); eCRCL 100 ML/MIN; eGFR > 90 ML/MIN
[2024-12-11] MEDS: MVI, adult No.4 with vit. K 10 ML in dextrose 5% water 500ml 500 ML IV SCH (07:04)
[2024-12-11] MEDS ORDERED: iohexol 300mg/ml 100ml inj. ONE (08:46)
--- NOTE | 2024-12-11 11:11 | RADIOLOGY REPORT ---
CLINICAL INFORMATION: 84 years old, Male; Suspected pancreatic cancer; dilated CBD and choledolithi asis. TECHNIQUE: Axial CT images of the abdomen and pelvis were obtained after the uneventful administrati on of 100 mL Omnipaque 300 IV contrast. Coronal and sagittal reformatted images were obtained, review ed, and stored. All CT scans at this medical facility are performed using dose modulation techniques as appropriate to a performed exam including the following: Automated exposure control was utilized; adjustment of the MA and/or KV according to patient size; and use of iterative reconstruction Pollsb. CTDIvol = 33.66 mGy DLP = 1858.86 mGy-cm COMPARISON: CT CT ABDOMEN PELVIS W/ IV ORAL CONTRAST on DOS: 12/06/24, CT CT CHEST ABDOMEN PELVIS on DOS: 12/01/24, CT CT ABDOMEN PELVIS on DOS: 08/04/23 FINDINGS: Lung bases: Small bilateral pleural effusions with overlying atelectasis and consolidation Liver: Hepatic steatosis. Small cyst in the left hepatic lobe. Biliary: Cholecystostomy tube in place. No biliary ductal dilatation. Spleen: Unremarkable. Pancreas: Unremarkable. No inflammatory changes, ductal dilatation, or mass identified. Adrenal glands: Unremarkable. No mass. Kidneys: No hydronephrosis or mass. Small amount of perinephric fluid seen bilaterally. Aorta/Vascular: Moderate atherosclerotic calcification. No abdominal aortic aneurysm. Retroperitoneum: No mass or lymphadenopathy. Bowel/mesentery: No small bowel obstruction. Appendix is not visualized. Scattered colonic diverticul a without adjacent inflammatory changes to suggest diverticulitis. Pelvic organs: Coarse central calcifications in the prostate. Bladder: Small calcifications are seen adjacent to or possibly within the bladder wall areas of mild bladder wall thickening also noted. Abdominal wall: Diffuse body wall edema / anasarca. Bones: No acute fracture or focal intraosseous lesion. IMPRESSION: 1. Cholecystostomy tube in place. No biliary ductal dilatation or pancreatic ductal dilatation. No ma ss visualized in the pancreas. Correlate with clinical findings. If there remains clinical suspicion for pancreatic mass, MRI could be obtained. 2. Scattered colonic diverticula without adjacent inflammatory changes to suggest diverticulitis. 3. Small calcifications are seen adjacent to or possibly within the bladder wall and there is bladder wall thickening, may be inflammatory in nature. Correlate clinically for cystitis. Neoplasm, includ ing malignancy can not be excluded in the appropriate clinical setting. 4. Small bilateral pleural effusions with overlying atelectasis and consolidation. Additional finding s as described above.
--- NOTE | 2024-12-11 15:08 | PROGRESS NOTE- Residence ---
Progress Note - Resident Providers to CC Resident Creating Document: JAYCE ZARAGOZA, NILES ~ Central Line/PICC still needed: Yes Holman-Non Protocol Holman Indications Met/Not Met: F/C Indications Not Met Antibiotic Timeout Antibiotic Ordered?: Yes Subjective Patient reports that he is hungry and eager to eat. States that his pain as it does usual and has no other acute complaints. Denies any further episodes of diarrhea. Objective Vital Signs Date Time Temp Pulse Resp B/P (MAP) Pulse Ox O2 Delivery O2 Flow Rate FiO2 12/11/24 12:01 20 12/11/24 11:26 98.2 94 127/84 (98) 98 Nasal Cannula 2.0 12/11/24 08:00 32 Result Diagram: 12/11/24 0540 12/11/24 0540 General: Awake and Alert, no acute distress. HEENT: Conjunctiva pink, Sclera clear, Mucus Membranes moist. Resp: Bilateral air entry present. Diminished bilateral basilar breath sounds Heart: Irregularly irregular, normal S1 and S2 without murmur, rub or gallop. Abdomen: TORSTEN drain present in the right upper quadrant, no tenderness present throughout. Bowel sounds present Extremities: Diffuse bilateral pitting edema of both upper and lower extremities of 2 to 3+. Bilateral upper arm edema worse when compared to the lower limb edema. Bilateral feet and foot drop boots Skin: Warm and Dry. Coagulation Studies Laboratory Tests Test 12/02/24 01:11 Prothrombin Time 14.6 SECONDS (9.0-12.0) H INR International Normalized Ratio 1.5 INR Coagulation Comments Assessment Assessment 84-year-old male patient with a past medical history of hypertension, sleep apnea, CAD, heart failure with reduced EF, allergies on chronic prednisone treatment, recurrent UTIs, and chronic constipation presents to the hospital from [facility] as a long-term resident with fever, hypotension, tachycardia, and diarrhea. Reports that symptoms had begun three days ago prior to his patient to the hospital. He is currently being evaluated and managed for severe sepsis. Plan Plan 1. Septic shock: POA Sore secondary to UTI and acute obstructive cholecystitis Blood cultures positive for E coli and Streptococcus anginosus Acute diarrheal illness- resolved 12/02/2024: WBC 40.4, procalcitonin 44.23, lactic acid 9.0 to 6.7. Temperature 101.3 Chest x-ray clear, no wounds on body, urinalysis negative for leukocyte esterase and nitrites. However 1+ bacteria was found. Follow up with cultures. History of UTI with multiple drug-resistant Klebsiella Follow up with blood cultures. Follow up with echocardiogram for evidence of any vegetations. Ongoing watery stools; C difficile testing ordered Treatment with IV Rocephin and vancomycin Blood pressure currently 89/58 with a map above 65 mmHg. He received 3 L of NS boluses in the ER. Continue NS at 100 mL/hour. 12/03/2024: - leukocytosis improving, decreased to 20k - no further reported fevers. - overnight lactic acid significantly increased to 5.7, requiring 2 L of IV fluid boluses lactic acid decreased down to 2.4. Hypernatremia secondary to above. Patient currently on D5 half NS. Repeat lactic acid - blood cultures positive for Gram-positive cocci in pairs and chains; also positive for Gram-negative rods - discontinue vancomycin today. Continue Zosyn - C diff stool negative. Culture of stool, WBCs in stool awaited - follow repeat chest x-ray as the initial chest x-ray revealed no significant findings. Initial CT scan however revealed bilateral basilar ground-glass opacities. - repeat swallow eval to be performed for patient's risk of aspiration; we will modify diet accordingly. For now full liquid diet until next swallow eval 12/04/2024: - Improvement in white count noted. Lactic acid normalized. No further episodes of hypotension, did not require further IV fluid boluses. - Blood cultures positive for E coli and Streptococcus anginosus. - CT chest abdomen and pelvis done on day one of admission revealed absence of any intra-abdominal abscesses. Only identification of possible abscesses dental. We will obtain ID opinion - continuing Zosyn day 3 - repeat swallow eval performed today. Patient to be NPO. Continue IV dextrose with half-normal saline 12/05/2024: Leukocytosis resolved - no new other signs of sepsis; vitals stable - antibiotics switched to Unasyn today - started the patient on a diet as he is more awake and alert 12/06/2024: - we will continue Unasyn and we will touch base with Dr. Jimenez for antibiotic recommendation. Patient reported pain in knee and we started tramadol 50 mg q.4 H. 12/07/2024: - continue Unasyn - mild leukocytosis noted today. Follow procalcitonin - HIDA scan ordered. HIDA scan reveals bile duct obstruction. We will contact GI for ERCP. Patient to be maintained NPO - awaiting stool culture. 12/08/2024: Up trending transaminases MRCP performed, awaiting results Protocol improving Continue Unasyn - ID following. Dr. Pal made aware yesterday 12/09/2024: Plan for surgery tomorrow for acute cholecystitis by Dr. Hood - PICC line to be placed for TPN as per Dr. Hood - prelim stool cultures negative for enteric pathogens - Repeat blood cultures negative for any growth - infectious disease on board 12/10/2024: Awaiting cholecystostomy tube to be placed by IR today - re-contacted Dr. Pal in view of the CBD stones, he states that the CBD is dilated but but likely not secondary to obstructing calculi. Recommends following with CT scan with pancreatic protocol to identify for possible obstructing pancreatic masses as EUS is not available in the facility. The same has been ordered - PICC line placement for prolonged NPO status and starting TPN - continuing Unasyn as per Dr. Jimenez recommendations - Eliquis on hold for the last two days - WBCs normalized and pain abdomen resolved. Ongoing worsening of alkaline phosphatase; bilirubin normalized - continue monitoring liver function tests 12/11/2024: Cystic duct obstruction induced cholecystitis leading to hydropic gallbladder TORSTEN drain in the gallbladder placed yesterday by Dr. Goodman IR on 12/10/2024. Likely secondary to the fact that the patient's baseline deconditioned status as well as advanced age; also significantly thickened wall of the gallbladder on the ultrasound. Plan to continue TORSTEN suction for one week followed by drainage with gravity. Improving alkaline phosphatase and liver function tests since the placement of the drain No plan to perform ERCP in due to high-risk features. Pancreatic protocol of CT reveals resolution of the biliary ductal dilatation and pancreatic ductal dilatation. No particular mass noted on the pancreas Continue monitoring the patient. Unasyn ongoing. Awaiting ID recommendations. Plan to restart oral diet with minced full liquid diet as per speech therapy evaluation, removal of PICC line and ID recommendations for antibiotic therapy. Plan for discharge likely with the next two days back to [facility] 2. Paroxysmal atrial fibrillation: 12/03/2024: EKG will be obtained for records CHADS-VASc score: 3, has bled score 2 We will start the patient on Eliquis; currently not requiring rate control medications IV Lopressor if heart rate increases Aware of increased BUN/creatinine ratio, we will follow stool for occult blood Discontinue aspirin in view of elevated risk of bleeding in the 85-year-old Closely monitor H&H Telemetry monitoring to be continued 12/06/2024. No new episodes of AFib -Continue Eliquis 5 mg b.i.d. 12/08/2024: No acute hemodynamic stability noted. Continuing the Eliquis with no complications at this time 12/09/2024: Holding Eliquis in view of the procedure 12/10/2024: Continues to be in atrial fibrillation - Eliquis on hold; restart tomorrow night which would complete 48 hours from the surgery 3. Heart failure with reduced ejection fraction: In no acute exacerbation ProBNP 5610, EF 40-45% - currently on 3-4 L oxygen - cautious IV fluid resuscitation for sepsis. Closely monitor increasing oxygen requirements. - follow repeat chest x-ray. If fluid overload, we will administer one dose of IV Lasix - continue close monitoring of oxygen requirements 12/04/2024: Fluids ongoing. In no acute distress. - Continues to require 4lts of O2. - MIld b/l basilar crepts heard, further decreasing fluids to 50cc/hr. Will closely monitor the Na - Close monitoring of his oxygen saturation and physical exam we will be maintain to prevent acute exacerbation of his heart failure. 12/05/2024: No worsening oxygenation. Continues to be on 4 L. We will start a full liquid diet, advance to soft diet tomorrow and watch for improvement. If eating well, we will discontinue the fluids 12/06/2024: We will continue the oxygen with 4 L. IV fluids stopped. Encourage p.o. intake 12/07/2024: - decreased nasal cannula oxygen from 4 L to 2 L. Baseline oxygen of 1-2 L at the facility - small bilateral pleural effusions noted on the chest x-ray - no increase in cough or shortness of breath. We will closely monitor. - aspiration precautions to be continued 12/10/2024: Ongoing steady maintain requirement of oxygen of 1-2 L 4. Subclinical hyperthyroidism: TSH 0.3, normal free T4 Repeat in three months 5. Hypernatremia: Resolved Hyperchloremia with low bicarb Secondary to IV fluid resuscitation - continuing D5 half NS. Continuing at 50 cc/hour - repeat CMP and we will slowly decrease rate further in view of underlying heart failure with reduced EF 12/06/2024 : serum sodium is downtrended from 150-147 12/07/2024: Hypernatremia resolved. 7. Chronic steroid use disorder: Indication unknown - 10 mg p.o. daily - we will restart the dose to prevent withdrawal 8. Thrombocytopenia: Resolved 12/03/2024: Heparin held today morning; continue SCDs Multifactorial etiology including acute ischemic liver injury, severe sepsis induced or heparin induced Continue monitoring at this time. 12/04/2024: Stop heparin -continue monitoring CBC closely 12/05/2024: Platelets constant at 55k -no signs of bleeding noted - started the patient on Eliquis for DVT prophylaxis; heparin stopped 12/06/2024: We will continue Eliquis 12/07/2024: Thrombocytopenia improving. Platelet count improved from 83 to 110 today 12/08/24: Thrombocytopenia resolved 9. Severe protein energy malnutrition: Peripheral edema secondary to above versus prolonged immobilization Albumin 1.3 Questionable protein-losing enteropathy Nutrition consulted Dispo: Cholecystostomy placed. Restarted Dr. Nichols regarding the TPN to be discontinued. Restart oral diet with minced full liquid diet. Plan for discharge back to [facility] over the next two days. Awaiting antibiotic therapy management Lines: PIV Code status: DNR DVT prophylaxis: SCDs GI prophylaxis: Protonix IV Prognosis: Guarded Jayce Zaragoza PGY2, Internal medicine resident Date of Service: December 11, 2024 Billing Provider: TARA HERNANDEZ MD Common Visit Codes: [id number] INP/OBS CARE(HIGH) JAYCE ZARAGOZA, RES December 11, 2024 15:08 TARA HERNANDEZ MD December 11, 2024 18:35
[2024-12-12 02:00] VITALS: BP 103/77; PULSE 99; RESP 21; TEMP 98; O2SAT 93
[2024-12-12] MEDS: ZINC/COPPER/MANGANESE/SELENIUM 1 ML, chromic chloride inj. 10 MCG in AA 5%/CALCIUM/LYTE... IV SCH (05:42)
[2024-12-12 06:00] VITALS: BP 132/82; PULSE 100; RESP 19; TEMP 97.8; O2SAT 97
[2024-12-12 08:00] VITALS: RESP 19; O2SAT 97
[2024-12-12 08:42] LABS: BASOPHILS % (AUTO) 0.2 % (0-1); EOSINOPHILS # (AUTO) 0.1 X10'3 (0-0.9); HEMATOCRIT 30.5 % (42.0-52.0); HEMOGLOBIN 10.4 g/dl (14.0-17.9); LYMPHOCYTES # (AUTO) 1.2 X10'3 (1.1-4.8); LYMPHOCYTES % (AUTO) 12.9 % (21-51); MEAN CORPUSCULAR HEMOGLOBIN 31.8 PG (27.0-31.0); MEAN CORPUSCULAR HGB CONC 34.2 g/dL (33.0-36.5); MEAN CORPUSCULAR VOLUME 92.9 FL (78-98); MEAN PLATELET VOLUME 7.4 FL (7.4-10.4); MONOCYTES # (AUTO) 0.4 X10'3 (0-0.9); MONOCYTES % (AUTO) 4.4 % (2-12); NEUTROPHILS # (AUTO) 7.4 X10'3 (1.8-7.7); NEUTROPHILS % (AUTO) 81.5 % (42-75); PLATELET COUNT 197 X10'3 (140-440); RED BLOOD COUNT 3.28 X10'6 (4.70-6.10); RED CELL DISTRIBUTION WIDTH 14.8 % (11.5-14.5); WHITE BLOOD COUNT 9.1 X10'3 (4.5-11.0)
[2024-12-12 08:55] LABS: ALANINE AMINOTRANSFERASE 61 U/L (12-78); ALBUMIN 1.6 G/DL (3.4-5.0); ALBUMIN/GLOBULIN RATIO 0.5 (1.1-1.5); ALKALINE PHOSPHATASE 208 IU/L (46-116); ANION GAP 3 (8-16); ASPARTATE AMINO TRANSFERASE 16 U/L (10-37); BILIRUBIN,TOTAL 0.6 MG/DL (0.1-1.0); BLOOD UREA NITROGEN 12 MG/DL (7-18); CHLORIDE 100 MMOL/L (99-107); CREATININE 0.48 MG/DL (0.60-1.10); GLUCOSE 131 MG/DL (70-104); MAGNESIUM 1.6 MG/DL (1.5-2.4); PHOSPHORUS 1.9 MG/DL (2.3-4.5); POTASSIUM 3.2 MMOL/L (3.5-5.1); SODIUM 133 MMOL/L (135-145); TOTAL CARBON DIOXIDE 30.5 MMOL/L (24-32); TOTAL PROTEIN 4.6 G/DL (6.4-8.2); eCRCL 115 ML/MIN; eGFR > 90 ML/MIN
[2024-12-12] MEDS ORDERED: sodium phosphate inj. 30 MMOL in dextrose 5%-water 250 ML IV PRN (10:50)
[2024-12-12] MEDS ORDERED: Neutra Phos packet PO PRN (10:50)
[2024-12-12] MEDS: potassium Cl 20 mEq SR tablet PO PRN (10:56)
--- NOTE | 2024-12-12 10:59 | PROGRESS NOTE ---
Progress Note ID Providers to CC ~ Progress Note Progress Note: drain in place/ok for rehab BHAVNA CORBETT MD December 12, 2024 10:59
[2024-12-12 11:00] VITALS: BP 133/72; PULSE 110; RESP 22; TEMP 96.7; O2SAT 94
[2024-12-12] MEDS: sodium phosphate inj. 15 MMOL in dextrose 5%-water 250 ML IV PRN (11:29)
[2024-12-12 15:00] VITALS: BP 128/69; PULSE 98; RESP 20; TEMP 97.6; O2SAT 96
--- NOTE | 2024-12-12 17:07 | DISCHARGE SUMMARY-Residence ---
Discharge Summary Providers to CC Resident Creating Document: JAYCE RASMUSSENNILES ~ Discharge Summary Admission Diagnosis: SEPTIC SHOCK Hospital Course DATE OF ADMISSION: 12/01/2024 DATE OF DISCHARGE: 12/12/2024 Discharge Diagnosis\Comment: Septic shock secondary to UTI and acute obstructive cholecystitis, blood cultures positive for E coli and Streptococcus anginosus Resolved acute diarrheal illness Paroxysmal atrial fibrillation Heart failure with reduced ejection fraction; no acute exacerbation Subclinical hyperthyroid Hypernatremia; resolved Chronic steroid use of unknown cause Thrombocytopenia; resolved Severe protein energy malnutrition with albumin of 1.3- peripheral edema secondary to above versus prolonged immobilization Operations\Procedures: Cholecystostomy Consultants: Dr. Hood, surgery Dr. Jimenez, infectious disease Dr Goodman, Interventional Radiology Complications: None Condition on DC: Stable for transfer Discharge Summary: 84-year-old male patient with a past medical history of hypertension, sleep apnea, CAD, heart failure with reduced ejection fraction, allergies on chronic prednisone treatment, recurrent UTIs and chronic constipation presents to the hospital from [facility] as a long-term resident with fever, hypotension, tachycardic, and diarrhea. His presenting diagnosis was septic shock but his blood pressure responded to the IV fluid boluses and hence, he was placed on the step-down unit for further monitoring. He has initial presentation of white count was [address], procalcitonin of 44.23 and lactic acid of nine with a temperature of a 101. Multiple etiologies of his septic shock were considered, he is urinalysis is positive for a UTI. He was started on Zosyn as a broad-spectrum due to his prior history of multidrug resistant Klebsiella. On the 2nd day, his leukocytosis has started to improve and the patient had no further reported fevers. Lactic acidosis started to improve in the blood pressure remained stable with IV fluids. Blood cultures grew positive for Gram- negative rods as well as Gram-positive cocci in pairs and chains. The final cultures were positive for E coli and Streptococcus anginosus. Infectious diseases was consulted at this time to guide for further treatment. After C&S availability, the patient's antibiotics were switched to Unasyn. He remained on Unasyn throughout the course of the hospitalization after day three. In view of the Streptococcus anginosus, further exploration of other intra-abdominal infections was performed. Stool cultures were sent, and abdominal ultrasound was obtained as examination was difficult to decipher the location due to diffuse tenderness. Abdominal ultrasound revealed dilated CBD and unable to exclude acute cholecystitis, HIDA scan was ordered which revealed cystic duct obstruction, cholecystitis and bile duct obstruction and this was followed by an MRCP. The MRCP revealed nonobstructive CBD stones. In view of the dilated bile duct, a pancreatic protocol CT abdomen and pelvis was also ordered which was unrevealing for any bile duct obstruction in the pancreas or pancreatic masses. GI was consulted throughout this process and ERCP was not performed due to presence of nonobstructive CBD stones as well as high-risk patient. Surgery was consulted, due to the high-risk status of the patient, a cholecystostomy tube was placed by Interventional Radiology on the 12/10/2024. The patient reported improvement in symptoms since the procedure. All of his labs had also begun to recover including his alkaline phosphatase levels. The cystostomy tube was connected to a TORSTEN drain and output was monitored. ID had followed throughout and recommended continuing the Unasyn. Patient remained in atrial fibrillation, he was started on Eliquis as home medications did not include Eliquis. Eliquis 5 mg b.i.d. was continued except for holding it prior to the surgery until 12/12/24 until 8:00 p.m.. Rest of his chronic medical conditions including heart failure with reduced EF were managed by restarting his home medications. Patient is also found to be in severe protein energy malnutrition with an albumin of 1.3, nutrition was consulted for the same. He had remained hemodynamically stable after the initial two days of hospitalization. At discharge, the patient was stable medically to be transferred to his long-term living facility to [facility]. Advised at discharge: Physical therapy, wound care, skin care. He presented with a grade 2 decubitus ulcer to the hospital. Kindly continue taking care of it CBC and CMP in one week. Follow up with Dr. Naylor, Dr. Jimenez and IR for removal of the drain. Follow instructions for drain management as indicated. Pain control. Cecilia Colorado MD to take over care Physical exam at discharge: General: Awake and Alert, no acute distress. HEENT: Conjunctiva pink, Sclera clear, Mucus Membranes moist. Resp: Bilateral air entry present. Diminished bilateral basilar breath sounds Heart: Irregularly irregular, normal S1 and S2 without murmur, rub or gallop. Abdomen: TORSTEN drain present in the right upper quadrant, no tenderness present throughout. Bowel sounds present Extremities: Diffuse bilateral pitting edema of both upper and lower extremities of 2 to 3+. Bilateral upper arm edema worse when compared to the lower limb edema. Bilateral feet and foot drop boots Skin: Warm and Dry. Labs at discharge: WBC 9.1, RBC 3.2, hemoglobin 10.4, platelets 197 Sodium 133, potassium 3.2, chloride 100, bicarb 30.5, BUN 12, creatinine 0.4, blood glucose 131, calcium seven, phosphorus 1.9, magnesium 1.6, total bilirubin 0.6, AST 16, ALT 61, alkaline phosphatase 202, albumin 1.6 Medications at discharge: Eliquis 5 mg b.i.d., Augmentin for 7-10 days and then to be followed by Dr. Nichols or Dr. Jimenez, Protonix, prednisone, loperamide p.r.n. for 10 days, Cymbalta, aspirin, atorvastatin, Tylenol, morphine p.o., calcium carbonate, Dulcolax, vitamin-D, cranberry, docusate, omeprazole, NTG, Zofran *Problems/Diagnosis: (1) Sepsis Status: Acute Total Time Spent on D/C: > 30 Minutes Date of Service: December 12, 2024 Billing Provider: TARA HERNANDEZ MD Common Visit Codes: 69378-KKF/OBS DISCH DAY >30min JAYCE RASMUSSEN RES December 12, 2024 17:07 TARA HERNANDEZ MD December 13, 2024 18:28
[2024-12-12] MEDS ORDERED: apixaban 5mg tablet PO SCH (20:00)
== END 2024-12-12 15:55 | DRG 871 ==
LOC: ER 19:41 → ED HOLD 12-02 00:48 → PCU 3S 12-02 04:06
PROVIDERS: ADMIT Internal Medicine Pulmonary Disease; ATTEND Internal Medicine
PROC: BW211ZZ Computerized Tomography (CT Scan) of Abdomen and Pelvis using Low Osmolar Contrast (ICD-10-PCS; 2024-12-06)
PROC: CF1C1ZZ Planar Nuclear Medicine Imaging of Hepatobiliary System, All using Technetium 99m (Tc-99m) (ICD-10-PCS; 2024-12-07)
PROC: 0F9430Z Drainage of Gallbladder with Drainage Device, Percutaneous Approach (ICD-10-PCS; principal; 2024-12-10)
PROC: 02HV33Z Insertion of Infusion Device into Superior Vena Cava, Percutaneous Approach (ICD-10-PCS; 2024-12-10)
PROC: B548ZZA Ultrasonography of Superior Vena Cava, Guidance (ICD-10-PCS; 2024-12-10)
PROC: BW211ZZ Computerized Tomography (CT Scan) of Abdomen and Pelvis using Low Osmolar Contrast (ICD-10-PCS; 2024-12-11)
DX: A40.8 Other streptococcal sepsis (principal); E43 Unspecified severe protein-calorie malnutrition; R65.21 Severe sepsis with septic shock; G93.41 Metabolic encephalopathy; N39.0 Urinary tract infection, site not specified; I50.22 Chronic systolic (congestive) heart failure; E87.1 Hypo-osmolality and hyponatremia; E87.20 Acidosis, unspecified; N17.9 Acute kidney failure, unspecified; E87.0 Hyperosmolality and hypernatremia; K80.63 Calculus of gallbladder and bile duct with acute cholecystitis with obstruction; I11.0 Hypertensive heart disease with heart failure; E78.00 Pure hypercholesterolemia, unspecified; I25.10 Atherosclerotic heart disease of native coronary artery without angina pectoris; Z66 Do not resuscitate; B95.4 Other streptococcus as the cause of diseases classified elsewhere; E87.6 Hypokalemia; B96.20 Unspecified Escherichia coli [E. coli] as the cause of diseases classified elsewhere; J44.9 Chronic obstructive pulmonary disease, unspecified; R65.20 Severe sepsis without septic shock; E80.6 Other disorders of bilirubin metabolism; F32.A Depression, unspecified; I48.0 Paroxysmal atrial fibrillation; G47.33 Obstructive sleep apnea (adult) (pediatric); G89.29 Other chronic pain; K21.9 Gastro-esophageal reflux disease without esophagitis; E87.8 Other disorders of electrolyte and fluid balance, not elsewhere classified; D69.6 Thrombocytopenia, unspecified; Z79.52 Long term (current) use of systemic steroids; Z86.16 Personal history of COVID-19; Z88.8 Allergy status to other drugs, medicaments and biological substances; Z82.49 Family history of ischemic heart disease and other diseases of the circulatory system; Z82.3 Family history of stroke; Z81.8 Family history of other mental and behavioral disorders; Z68.38 Body mass index [BMI] 38.0-38.9, adult
CPT/HCPCS: 36415; 36569; 47490; 70450; 71045; 71250; 74176; 74177; 74181; 76700; 76942; 78226; 80053; 80061; 81001; 82248; 82272; 82948; 83036; 83605; 83690; 83735; 83880; 84100; 84134; 84145; 84439; 84443; 84478; 84484; 85007; 85025; 85610; 85651; 87040; 87045; 87046; 87070; 87077; 87081; 87088; 87186; 87324; 87449; 89055; 92508; 92616; 93005; 93306; 93976; 96365; 96367; 96368; 97110; 97161; 97530; 97535; 99285; A4421; A5200; A6213; A6250; A6258; A6590; A9537; C1751; C1758; G0378; J0131; J0295; J0696; J1644; J2250; J2270; J2405; J2470; J2543; J3010; J3370; J3480; J3490; J7030; J7040; J7042; J7050; J7060; J7121; J7512; Q9963; Q9967

== ENCOUNTER 2025-02-08 08:59 | Outpatient (CLI) | payer MEDICARE, MEDICAID ==
[~2025-02-08 08:59] MED LIST changes: +BISA10SU60 RC; -CALC300T4 PO; +CHOL10006 PO; -CHOL200074 PO; +CRAN450T9 PO; +DOCU-148 PO; +DULO-31 PO; +HYDR-3686 PO; -HYDR-3972 PO; -LORA-268 PO; -METO50TA7 PO; -MORP20CA17 PO; +MORP30TA PO; +OMEP20CA16 PO; +OSC500T PO; +POLY119P2 PO; +PRED5TAB PO; -TRAZ-251 PO
--- NOTE | 2025-02-08 12:11 | RADIOLOGY REPORT ---
INDICATION: RUQ PAIN TECHNIQUE: Multiple real-time sonographic images were obtained of the right upper quadrant. COMPARISON: US ULTRASOUND OF ABDOMEN on DOS: 12/03/24 FINDINGS: The liver demonstrates increased echotexture without focal mass lesions. The liver measure s 15.6 cm. Cholecystostomy drain within the gallbladder. Common bile duct measures 0.5 cm. The right kidney measures 9.9 cm. The right kidney is normal in contour, size, and shape. The echogen icity is normal. There is no hydronephrosis. The pancreas is not well visualized due to overlying bowel gas. IMPRESSION: Hepatic steatosis.
== END 2025-02-08 23:59 | disposition home or self-care (01) ==
LOC: RAD 08:59
PROVIDERS: ATTEND Surgery
DX: K76.0 Fatty (change of) liver, not elsewhere classified (principal); R10.11 Right upper quadrant pain
CPT/HCPCS: 76700

== ENCOUNTER 2025-02-11 11:01 | Inpatient (IN) | payer MEDICARE, MEDICAID ==
[~2025-02-11] VITALS: Ht 172.7 cm; Wt 89.0 kg
--- NOTE | 2025-02-11 11:10 | ELECTROCARDIOGRAPH REPORT ---
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 Dax Goodman Measurements Intervals [place] Rate: 120 P: 0 IN: 0 QRS: -71 QRSD: 120 T: 82 QT: 333 QTc: 471 Interpretive Statements Atrial fibrillation Ventricular premature complex Nonspecific IVCD with LAD Inferior infarct, old Anterior infarct, old Electronically Signed On 02-17-2025 20:06:[address] Dax Goodman Please click the below link to view image of tracing.
[2025-02-11 11:27] LABS: MEAN PLATELET VOLUME 6.8 FL (7.4-10.4); RED CELL DISTRIBUTION WIDTH 16.5 % (11.5-14.5)
--- NOTE | 2025-02-11 11:34 | RADIOLOGY REPORT ---
CHEST RADIOGRAPH Indication: CP Technique: Single frontal view of the chest was obtained COMPARISON: DI CHEST,SINGLE VIEW on DOS: 12/10/24, DI CHEST,SINGLE VIEW on DOS: 12/03/24, DI CHEST,SINGL E VIEW on DOS: 12/01/24, DI CHEST,SINGLE VIEW on DOS: 08/03/23, CHEST,SINGLE VIEW on DOS: 07/27/20 FINDINGS: Lines and Tubes: None Lungs: Left basilar subsegmental atelectasis. Pleura: No effusion. No pneumothorax. Cardiomediastinal contours: Unremarkable Bones: Unremarkable IMPRESSION: Left basilar subsegmental atelectasis.
[2025-02-11 11:57] LABS: CREATININE 0.53 MG/DL (0.60-1.10); TOTAL CARBON DIOXIDE 30.3 MMOL/L (24-32); eCRCL 100 ML/MIN; eGFR > 90 ML/MIN
[2025-02-11 11:58] LABS: PRO BRAIN NATRIURETIC PEPTIDE 2498 PG/ML (0-450)
[2025-02-11] MEDS ORDERED: iohexol 300mg/ml 100ml inj. ONE (12:15)
--- NOTE | 2025-02-11 13:15 | RADIOLOGY REPORT ---
CT CT ABDOMEN PELVIS W/ IV CONTRAST INDICATION: tachycardia and recent abdominal surgery EXAM DATE: 02/11/2025 12:22 PM COMPARISON: CT CT ABDOMEN PELVIS W/ IV CONTRAST on DOS: 12/11/24, CT CT ABDOMEN PELVIS W/ IV ORAL CO NTRAST on DOS: 12/06/24, CT CT CHEST ABDOMEN PELVIS on DOS: 12/01/24 RADIATION DOSE: CTDIvol: 27 mGy, DLP: 1349 mGy*cm PROCEDURE: Helical CT images were obtained of the abdomen and pelvis with IV contrast Sagittal and co polo reconstructions are provided. ORAL CONTRAST: None. ADDITIONAL IMAGES / REFORMATS: None All CT s cans at this medical facility are performed using dose modulation techniques as appropriate to a perf ormed exam including the following: Automated exposure control was utilized; adjustment of the MA and /or KV according to patient size; and use of iterative reconstruction technique. FINDINGS: LUNG BASE: There is bibasilar atelactasis. LIVER: Normal. GALLBLADDER AND BILIARY TREE: Similar cholecystostomy tube in the gallbladder which is decompressed. No intra- or extrahepatic biliary ductal dilation. PANCREAS: Normal. SPLEEN: Normal. BOWEL: Mild colonic diverticulosis. The appendix is not well visualized. ADRENALS: Normal. KIDNEYS AND URETER: Normal. BLADDER: Small bladder stones with mild nonspecific bladder wall thickening. REPRODUCTIVE ORGANS: Normal. LYMPH NODES:No lymphadenopathy. PERITONEUM: No ascites or free air. No other fluid collection. VESSELS: Scattered atherosclerotic calcifications are noted. RETROPERITONEUM: Normal. ABDOMINAL WALL: Small fat containing bilateral inguinal hernias. BONES: Scattered osseous degenerative changes are noted. Left acetabular protusio. L1 compression def ormity. IMPRESSION: Mild rectal wall thickening could be seen with proctitis. Similar cholecystostomy tube in the gallbladder which is decompressed.
[2025-02-11 16:18] LABS: LEUKOCYTE ESTERASE ,URINE SMALL (Neg); NITRITES, URINE NEGATIVE (Neg); OCCULT BLOOD,URINE SMALL (Neg)
[2025-02-11 16:20] LABS: UA COLLECTION TYPE STRAIGHT CATH
[2025-02-11 16:40] LABS: SQUAMOUS EPITHELIAL CELL,UR FEW /LPF (FEW); YEAST MANY /HPF (NEGATIVE)
--- NOTE | 2025-02-11 16:59 | Physician Documentation ---
History of Present Illness ~ General Chief Complaint: See Chief Complaint Stated Complaint: TACHYCARDIA Time Seen by MD: 11:05 Primary Medical Doctor: [facility] Mode of Arrival: EMS History of Present Illness Initial Comments 84 year old male sent from rehab facility where he is recovering from a cholecystectomy. Staff noted tachycardia and diaphoresis but he reports no new symptoms including no dysuria, chest pain, fevers, cough, N/V/d. Medication Reconciliation Allergies: Coded Allergies: No Known Allergies (Unverified , 08/03/23) Scheduled Aspirin (Aspirin EC), 1 TAB PO DAILY, (Reported) Atorvastatin Calcium (Atorvastatin Calcium), 1 TAB PO HS, (Reported) Cholecalciferol (Vitamin D), 1 CAP PO DAILY, (Reported) Cranberry Fruit (Cranberry), 2 TAB PO HS, (Reported) Duloxetine Hcl* (Cymbalta*), 1 CAP PO DAILY, (Reported) Famotidine (Famotidine), 1 TAB PO HS, (Reported) Ipratropium/Albuterol Sulfate (Duoneb 2.5-0.5 Mg/3 Ml Soln), 1 VIAL NEB Q12H, (Reported) Nitroglycerin (Nitrostat), 1 TAB SL UD, (Reported) Omeprazole (Omeprazole), 1 CAP PO HS, (Reported) Prednisone* (Prednisone*), 2 TAB PO DAILY, (Reported) Sennosides (Senna), 2 TAB PO HS, (Reported) Scheduled PRN Acetaminophen (Tylenol), 2 CAP PO Q6H PRN PRN for pain, (Reported) Bisacodyl (Dulcolax), 1 SUPP RC Q24H PRN for constipation, (Reported) Calcium Carbonate* (Oscal*), 1 TAB PO Q4H PRN for indigestion/dyspepsia, (Reported) Docusate Sodium (Colace), 2 CAP PO Q12H PRN for constipation, (Reported) Hydroxyzine Hcl* (Atarax*), 1 TAB PO Q6H PRN for ITCHING, (Reported) Morphine Sulfate Tab* (Morphine Tab*), 0.5 TAB PO Q8H PRN for pain, (Reported) Ondansetron HCl (Ondansetron HCl), 1 TAB PO Q6H PRN PRN for nausea/vomiting, (Reported) Polyethylene Glycol 3350 (Miralax), 17 GM PO PRN PRN for constipation, (Reported) Past Medical History Past Medical History: Seizures, Atrial Fibrillation, High Cholesterol, Hypertension, COPD, Sleep Apnea, Pancreatitis, Chronic Pain, Chronic Back Pain Past Surgical History: orthopedic surgeries, other Other Past Surgical History: Angiogram, Marci Placement Patient History: (CAD) Coronary arteriosclerosis FATHER, Onset:60 years & older (CHF) Congestive heart failure FATHER, Onset:60 years & older (CVA) Cerebrovascular accident MOTHER, Onset:60 years & older Alzheimer's disease MOTHER, Onset:60 years & older Other Past Family History: NONCONTRIBUTORY Alcohol Use: Sober Drug Use: none Lives with: Alone Lives In: Home Occupation: retired Review of Systems All Other Systems at this time: Reviewed and Negative Physical Exam Physical Exam Vital Signs: RN Vital Signs have been reviewed: Yes, Temperature: 97.4, Source: Oral, Heart Rate: 125, Respiratory Rate: 21, BP: 112/79, Pulse Oximetry: 99, W eight: 89.000 Oxygen Flow Rate: 2.0 Physical Exam HEENT: PERRL, moist oral mucosa, EOMI Pulmonary: No respiratory distress Cardiac: irregular tachycardia, no murmur, rub or gallop GI: nondistended, soft, nontender, no guarding, no rebound; TORSTEN drain in place draining scant clear yellow fluid without purulence. MSK: no swelling Skin: w/d/i, no rash Neuro: alert, nonfocal Psych: normal affect Progress Results/Orders Results/Orders Orders - EILEEN NICOLE MD Chest,Single View (02/11/25 11:19) Monitor (02/11/25 11:08) Saline Lock (02/11/25 11:08) Oxygen (02/11/25 11:08) Ct Abdomen Pelvis (02/11/25 12:02) Cult Urine + [place] [facility] (02/11/25 16:41) Page Hospitalist (02/11/25 ) Completed Orders - EILEEN NICOLE MD Chest,Single View (02/11/25 11:19) Cbc/Diff (02/11/25 11:08) PBNP (02/11/25 11:08) Electrocardiogram (02/11/25 11:08) Hs Troponin I W Calculations (02/11/25 11:08) Hs Troponin I W Calculations (02/11/25 13:08) Hs Troponin I W Calculations (02/11/25 14:08) CMP (02/11/25 11:08) Ct Abdomen Pelvis (02/11/25 12:02) Iohexol 300mg/Ml 100ml Inj. (Omnipaque-3 (02/11/25 12:15) Ua W/Microscopic, Cult If Ind (02/11/25 16:07) Sulfamethox/Trimetho. Ds Tab ( Ds (02/11/25 17:15) Medications Received in ER Medications (Trade) Dose Ordered Sig/Zacarias Route PRN Reason Start Time Stop Time Status Last Admin Dose Admin ( DS tab) 1 tab ONCE ONCE PO 02/11/25 17:15 02/11/25 17:16 DC 02/11/25 17:24 1 TAB Vital Signs 02/11/25 02/11/25 02/11/25 02/11/25 11:03 11:14 12:12 13:09 Temp 97.4 97.4 Pulse 130 131 108 Resp 20 21 14 18 B/P (MAP) 134/79 108/83 (91) 108/75 (86) Pulse Ox 98 97 97 O2 Flow Rate 2.0 2.0 2.0 02/11/25 02/11/25 02/11/25 13:13 15:21 16:13 Pulse 118 125 125 Resp 17 17 21 B/P (MAP) 112/81 (91) 106/69 (81) 112/79 (90) Pulse Ox 99 99 99 Laboratory Tests Test 02/11/25 11:17 02/11/25 13:25 02/11/25 14:25 02/11/25 16:07 White Blood Count 12.0 H Red Blood Count 4.31 L Hemoglobin 13.4 L Hematocrit 40.0 L Mean Corpuscular Volume 92.8 Mean Corpuscular Hemoglobin 31.1 H Mean Corpuscular Hemoglobin Concent 33.5 Red Cell Distribution Width 16.5 H Platelet Count 221 Mean Platelet Volume 6.8 L Neutrophils (%) (Auto) 81.3 H Lymphocytes (%) (Auto) 10.7 L Monocytes (%) (Auto) 7.1 Eosinophils (%) (Auto) 0.5 Basophils (%) (Auto) 0.4 Neutrophils # (Auto) 9.8 H Lymphocytes # (Auto) 1.3 Monocytes # (Auto) 0.9 Eosinophils # (Auto) 0.1 Basophils # (Auto) 0.0 CBC Comment Sodium Level 128 L Potassium Level 3.8 Chloride Level 96 L Carbon Dioxide Level 30.3 Anion Gap 2 L Blood Urea Nitrogen 22 H Creatinine 0.53 L Estimated GFR/1.73 m2 > 90 BUN/Creatinine Ratio 41.5 H Glucose Level 163 H Calcium Level 8.4 L Total Bilirubin 0.7 Aspartate Amino Transf (AST/SGOT) 14 Alanine Aminotransferase (ALT/SGPT) 14 Alkaline Phosphatase 98 Troponin I High Sensitivity 18 16 17 Pro-B-Type Natriuretic Peptide 2498 H Total Protein 6.5 Albumin 2.5 L Globulin 4.0 Albumin/Globulin Ratio 0.6 L Chemistry Comments Troponin I High Sens Percent Delta 11 6 Troponin I Hi Sens Absolute Change -2 1 Urine Specimen Description Straight cath Urine Color Yellow Urine Clarity Cloudy Urine pH 7.0 Urine Specific [place] <=1.005 Urine Protein 30 H Urine Glucose (UA) Negative Urine Ketones Negative Urine Occult Blood Small Urine Nitrite Negative Urine Bilirubin Negative Urine Urobilinogen 0.2 Urine Leukocyte Esterase Small H Urine RBC 3-10 Urine WBC Tntc H Urine Squamous Epithelial Cells Few Urine Bacteria 2+ Urine Yeast Many Urine Culture Indicated Indicated Volume Urine Centrifuged 10 ml Urine Comment Medical Decision Making Findings 84 year old male with tachycardia as above, mild abdominal pain on exam and atrial fibrillation, but exam and vitals otherwise unremarkable. Workup demonstrated UTI, leukocytosis, atrial fibrillation with RVR, and no intraabdominal findings. Abx elect to transfer care to hospitalist . Differential Diagnosis Ddx = intraabdominal abscess, postoperative pain, UTI, pneumonia, PE, atrial fibrillation with RVR Departure Disposition: 09 ADMITTED INPATIENT Admitted to Inpatient Unit: to hospitalist Admission Level of Care: Med/Surg Impression: Primary Impression: UTI (urinary tract infection) Additional Impression: A-fib Condition: Stable Discharge Instructions: Urinary Tract Infection, Adult Referrals: NO PRIMARY CARE PROVIDER (PCP) Education Educated: Patient Educated regarding: diagnosis, prognosis, need for follow up Signature Scribe Signature: . Attestation: . EILEEN NICOLE MD Feb 11, 2025 16:59
[2025-02-11] MEDS: sulfamethoxazole/trimethoprim DS (800/160mg) tablet PO ONE (17:24)
[2025-02-11] MEDS ORDERED: magnesium sulf-water 4G/100mL 100 ML IV PRN (17:25)
[2025-02-11] MEDS ORDERED: potassium Cl 40MEQ/1/2NS 520ml 520 ML IV PRN (17:25)
[2025-02-11] MEDS ORDERED: potassium Cl 20 mEq SR tablet PO PRN ×2 (17:25)
[2025-02-11] MEDS ORDERED: HYDROcodone/acetaminophen 5mg/325mg tablet PO PRN (17:25)
[2025-02-11] MEDS ORDERED: magnesium sulf-water 2g/50mL 50 ML IV PRN (17:25)
[2025-02-11] MEDS ORDERED: magnesium Cl slow-release 64mg tablet PO PRN (17:25)
[2025-02-11] MEDS: normal saline 1000ml 1,000 ML IV SCH ×2 (18:04→18:22)
[2025-02-11] MEDS: CefTRIAXone 2gm/D5W 50ml BAG 50 ML IV SCH (18:05)
--- NOTE | 2025-02-11 18:21 | HISTORY AND PHYSICAL ---
History & Physical Providers to CC ~ History of Present Illness Reason for Admit\Complaint: racy heart rate and diaphoretic History of Present Illness 84-year-old male patient with a past medical history of hypertension, sleep apnea, CAD, heart failure with reduced ejection fraction, allergies on chronic prednisone treatment, recurrent UTIs and chronic constipation , status post cholecystectomy. presents to the hospital from [facility] ,Patient is here because staff in rehab facility noticed that patient is tachycardic and diaphoretic. Patient also mentioned that off and on he is getting chest discomfort besides the tachycardia denied any cough nausea vomiting or diarrhea last bowel movement yesterday. Patient does not recall any new changes in the medication since his last visit in the hospital and he is taking all medication as prescribed. Denied use of any alcohol tobacco use. Patient denied any other associated symptoms. patient is not very good historian . Further workup done in ER which showed signs of acute UTI elevated WBC count and patient is having atrial fibrillation with RVR hospitalist services contacted for admission and further management . Allergies: Coded Allergies: No Known Allergies (Unverified , 08/03/23) Home Medications Home Medications Active Reported Miralax (Polyethylene Glycol 3350) 17 Gram/Dose Powder 17 Gm PO PRN PRN dissolve in water Atarax* (Hydroxyzine HCl) 25 Mg Tablet 1 Tab PO Q6H PRN Morphine Tab* (Morphine Sulfate) 30 Mg Tablet 0.5 Tab PO Q8H PRN 5 Days Prednisone* (Prednisone) 5 Mg Tablet 2 Tab PO DAILY Cymbalta* (Duloxetine HCl) 30 Mg Capsule.dr 1 Cap PO DAILY 30 Days Cranberry (Cranberry Fruit) 450 Mg Tablet 2 Tab PO HS 30 Days Dulcolax (Bisacodyl) 10 Mg Supp.rect 1 Supp RC Q24H PRN 10 Days Colace (Docusate Sodium) 100 Mg Capsule 2 Cap PO Q12H PRN 30 Days Vitamin D (Cholecalciferol) 1,000 Unit Capsule 1 Cap PO DAILY 30 Days Oscal* (Calcium Carbonate) 500 Mg Tablet 1 Tab PO Q4H PRN 30 Days Omeprazole 20 Mg Capsule.dr 1 Cap PO HS 30 Days Duoneb 2.5-0.5 Mg/3 Ml Soln (Ipratropium/Albuterol Sulfate) 0.5 Mg-3 Mg (2.5 Mg Base)/3 Ml Ampul.neb 1 Vial NEB Q12H Tylenol (Acetaminophen) 325 Mg Capsule 2 Cap PO Q6H PRN PRN NEEDED FOR PAIN Senna (Sennosides) 8.6 Mg Tablet 2 Tab PO HS Ondansetron HCl 4 Mg Tablet 1 Tab PO Q6H PRN PRN Famotidine 20 Mg Tablet 1 Tab PO HS Aspirin EC (Aspirin) 81 Mg Tablet.dr 1 Tab PO DAILY Nitrostat (Nitroglycerin) 0.4 Mg Tab.subl 1 Tab SL UD Atorvastatin Calcium 10 Mg Tablet 1 Tab PO HS 30 Days Past Medical History Past Medical History Septic shock secondary to UTI and acute obstructive cholecystitis, blood cultures positive for E coli and Streptococcus anginosus Resolved acute diarrheal illness Paroxysmal atrial fibrillation Heart failure with reduced ejection fraction; no acute exacerbation Subclinical hyperthyroid Hypernatremia; resolved Chronic steroid use of unknown cause Thrombocytopenia; resolved Severe protein energy malnutrition with albumin of 1.3- peripheral edema secondary to above versus prolonged immobilization Past Surgical History Surgical History Comment Cholecystostomy Family History Family History: (CAD) Coronary arteriosclerosis FATHER, Onset:60 years & older (CHF) Congestive heart failure FATHER, Onset:60 years & older (CVA) Cerebrovascular accident MOTHER, Onset:60 years & older Alzheimer's disease MOTHER, Onset:60 years & older Past Social History Social History Comment Patient lives in [facility] facility, denied use of any alcohol tobacco or any drugs. ROS ROS Review of system as mentioned above in HPI rest of the review of system unremarkable Exam Vitals: Vital Signs Date Time Temp Pulse Resp B/P (MAP) Pulse Ox O2 Delivery O2 Flow Rate FiO2 02/11/25 18:07 132 20 112/78 (89) 98 2.0 02/11/25 12:12 97.4 General: General-patient not in any acute distress, alert awake, chronically ill- appearing, age-appropriate HEENT-atraumatic normocephalic, neck supple without elevated JVD, no thyromegaly or carotid bruit. No lymphadenopathy bilaterally. Eyes-no icterus or pallor seen in eyes Chest-lung crackles present to auscultation bilaterally, breathing nonlabored no tachypnea, no wheezing, Heart-S1-S2 normal, regular heart rate no murmur Abdomen bowel sounds positive on auscultation, soft nondistended nontender no guarding, no rigidity Skin no active skin rash, patient is diaphoretic and sweaty Neurology-grossly intact, nonfocal alert awake Extremity- no pedal edema able to move all 4 extremities Psychiatry - patient is not confused or agitated cooperated during physical examination Diagnostic Data Last Recorded Lab Results: 02/11/25 1117 02/11/25 1117 Advance Care Planning Advanced Care plannin - 30 Minutes Additional Plan with a past medical history of hypertension, sleep apnea, CAD, heart failure with reduced ejection fraction, on chronic prednisone treatment, recurrent UTIs and chronic constipation, status post cholecystectomy. Further workup done in ER which showed signs of acute UTI elevated WBC count and patient is having atrial fibrillation with RVR hospitalist services contacted for admission and further management in admission. Patient is started on Cardizem drip for atrial fibrillation with a RVR. Patient recently had echocardiogram done in November 2024. Current cardiac markers unremarkable. Patient is started on IV antibiotics for acute UTI and elevated WBC count. Low-dose of IV fluids started. We will do home medication reconciliation once updated in electronic medical record system by nursing staff or pharmacist. Code status discussed with the patient patient wishes to stay DNR DNI. Time spent in discussing code status 16 minutes. Patient we will be admitted to PCU with tele monitor. Further management depending on response to treatment I will continue to follow patient in a.m. Date of Service: Feb 11, 2025 Billing Provider: TARA HERNANDEZ MD Common Visit Codes: 70690-BSZXCAE INP/OBS CARE (HIGH) Secondary Visit Codes: 60892-BICQAGMN CARE PLAN 30 MINUTES TARA HERNANDEZ MD Feb 11, 2025 18:21
[2025-02-11] MEDS: diltiazem-NS 100mg/100ml 100 ML IV SCH (18:22)
[2025-02-11] MEDS: heparin, porcine 5000 units/ml vial SQ SCH (19:04)
[2025-02-11] MEDS ORDERED: [UNRECOGNIZED DRUG - OTHER] PO (19:12)
[2025-02-11] MEDS ORDERED: APIX5TAB3 PO (19:12)
[2025-02-11] MEDS ORDERED: DILT180T11 PO (19:12)
[2025-02-11] MEDS ORDERED: MORP-92 PO (19:12)
[2025-02-11 20:45] VITALS: BP 117/86; PULSE 121; RESP 17; TEMP 97; O2SAT 98
[2025-02-11 22:00] VITALS: BP 114/81; PULSE 124; RESP 16; TEMP 97.6; O2SAT 97
[2025-02-12] VITALS (18 sets, daily range): BP systolic 99–129; BP diastolic 72–96; PULSE 109–132; RESP 16–24; TEMP 97–98.4; O2SAT 90–100
[2025-02-12] MEDS: diltiazem-NS 100mg/100ml 100 ML IV ONE (02:47)
[2025-02-12 06:44] LABS: MEAN PLATELET VOLUME 7.1 FL (7.4-10.4); RED CELL DISTRIBUTION WIDTH 17.0 % (11.5-14.5)
[2025-02-12 06:54] LABS: CREATININE 0.45 MG/DL (0.60-1.10); TOTAL CARBON DIOXIDE 28.6 MMOL/L (24-32); eCRCL 118 ML/MIN; eGFR > 90 ML/MIN
[2025-02-12] MEDS: ondansetron/PF 4mg/2ml inj IV PRN (10:23)
--- NOTE | 2025-02-12 12:05 | RADIOLOGY REPORT ---
Date: 02/12/2025 11:18 AM Examination: DI ABDOMEN,SINGLE VIEW(KUB) History: NAUSEA , VOMTING Comparison: None TECHNIQUE: Frontal views of the abdomen was obtained. FINDINGS/IMPRESSION: Bowel gas pattern is unremarkable. Gaseous distention of the stomach. Moderate stool burden. The lung bases are unremarkable. Surgical catheter projects over the right upper quadrant. No acute osseous abnormality identified.
[2025-02-12] MEDS ORDERED: ACETAMINOPHEN PO PRN (19:50)
--- NOTE | 2025-02-12 19:52 | PROGRESS NOTE ---
Daily Progress Note Providers to CC ~ Antibiotic Timeout Antibiotic Ordered?: Yes Subjective Patient is seen in his room feeling better as compared to yesterday. He feels he is constipated. Patient also had episode of vomiting today KUB ordered which showed signs of Moderate stool burden. Objective Vital Signs Date Time Temp Pulse Resp B/P (MAP) Pulse Ox O2 Delivery O2 Flow Rate FiO2 02/12/25 18:00 116 20 111/77 (88) Nasal Cannula 2.0 02/12/25 15:00 98.4 100 02/11/25 20:45 28 Result Diagram: 02/12/25 0556 02/12/25 0556 General-patient not in any acute distress, alert awake, chronically ill- appearing, age-appropriate HEENT-atraumatic normocephalic, neck supple without elevated JVD, no thyromegaly or carotid bruit. No lymphadenopathy bilaterally. Eyes-no icterus or pallor seen in eyes Chest-lung crackles present to auscultation bilaterally, breathing nonlabored no tachypnea, no wheezing, Heart-S1-S2 normal, regular heart rate no murmur Abdomen bowel sounds positive on auscultation, soft nondistended nontender no guarding, no rigidity Skin no active skin rash, Neurology-grossly intact, nonfocal alert awake Extremity- no pedal edema able to move all 4 extremities Psychiatry - patient is not confused or agitated cooperated during physical examination Problem\Assessment\Plan with a past medical history of hypertension, sleep apnea, CAD, heart failure with reduced ejection fraction, on chronic prednisone treatment, recurrent UTIs and chronic constipation, status post cholecystectomy. Further workup done in ER which showed signs of acute UTI elevated WBC count and patient is having atrial fibrillation with RVR hospitalist services contacted for admission and further management in admission. # atrial fibrillation with RVR- Patient is started on Cardizem drip for atrial fibrillation with a RVR. Today Coreg and amiodarone added. Patient recently had echocardiogram done in November 2024. Current cardiac markers unremarkable. # acute UTI- Patient is started on IV antibiotics for acute UTI and elevated WBC count. Low-dose of IV fluids started. # Chronic constipation- Dulcolax suppository ordered # home medication reconciliation updated in electronic medical record system Code status discussed with the patient patient wishes to stay DNR DNI. Patient's current condition is guarded Further management depending on response to treatment I will continue to follow patient in a.m. Date of Service: Feb 12, 2025 Billing Provider: TARA HERNANDEZ MD Common Visit Codes: [id number] INP/OBS CARE(HIGH) TARA HERNANDEZ MD Feb 12, 2025 19:52
[2025-02-12] MEDS: ipratropium/albuterol 3ml nebule NEB SCH (21:03)
[2025-02-12] MEDS: bisacodyl 10mg suppository rectal RC STA (22:37)
[2025-02-12] MEDS: pantoprazole 40mg Tablet.DR PO SCH (22:41)
[2025-02-13] VITALS (7 sets, daily range): BP systolic 98–125; BP diastolic 59–79; PULSE 100–120; RESP 19–22; TEMP 97–97.5; O2SAT 94–97
[2025-02-13] MEDS: metoclopramide 5 mg/ml inj IV PRN (01:00)
[2025-02-13] MEDS: ketorolac trometh 15mg/ml vial 15 MG/ML ML IV PRN (02:09)
[2025-02-13 06:37] LABS: CREATININE 0.92 MG/DL (0.60-1.10); TOTAL CARBON DIOXIDE 30.9 MMOL/L (24-32); eCRCL 58 ML/MIN; eGFR 78 ML/MIN
[2025-02-13 06:38] LABS: MEAN PLATELET VOLUME 7.4 FL (7.4-10.4); RED CELL DISTRIBUTION WIDTH 16.5 % (11.5-14.5)
[2025-02-13] MEDS: aspirin 81mg, enteric-coated 1 TAB TABLET.DR PO SCH (09:32)
[2025-02-13] MEDS: duloxetine 30mg CAPSULE.DR PO SCH (09:32)
[2025-02-13] MEDS: diltiazem-NS 100mg/100ml 100 ML IV SCH (11:13)
[2025-02-13] MEDS: diltiazem 30mg tablet PO SCH (13:20)
--- NOTE | 2025-02-13 20:10 | DISCHARGE SUMMARY ---
Discharge Summary Providers to CC ~ Discharge Summary Admission Diagnosis: A-FIB WITH RVR, ACUTE UTI, LEUKOCYTOSIS Hospital Course DATE OF ADMISSION: February 11, 2025 DATE OF DISCHARGE:February 13, 2025 CBC testing done on February 13, 2025 WBC 16.7 hemoglobin 12.7 hematocrit 37.8 platelet count 268 sed rate 31. Normal CMP normal cardiac marker. ProBNP 2498. Urine culture showed Marylou albicans. Blood culture showed no growth after tw o days ABDOMEN,SINGLE VIEW(KUB)FINDINGS/IMPRESSION: Bowel gas pattern is unremarkable. Gaseous distention of the stomach. Moderate stool burden. The lung bases are unremarkable. Surgical catheter projects over the right upper quadrant. No acute osseous abnormality identified. CT ABDOMEN PELVIS IMPRESSION: Mild rectal wall thickening could be seen with proctitis. Similar cholecystostomy tube in the gallbladder which is decompressed. CHEST,SINGLE VIEW-IMPRESSION: Left basilar subsegmental atelectasis. Discharge Diagnosis\Comment: # atrial fibrillation with RVR 3 hypertension, sleep apnea, CAD, heart failure with reduced ejection fraction, on chronic prednisone treatment, recurrent UTIs and chronic constipation, status post cholecystectomy # acute UTI # Chronic constipation Operations\Procedures: NONE Consultants: NONE Complications: NONE Condition on DC: Stable for transfer Discharge Summary: Patient with a medical history of hypertension, sleep apnea, CAD, heart failure with reduced ejection fraction, on chronic prednisone treatment, recurrent UTIs and chronic constipation, status post cholecystectomy. Further workup done in ER which showed signs of acute UTI elevated WBC count and patient is having atrial fibrillation with RVR hospitalist services contacted for admission and further management in admission. # atrial fibrillation with RVR- Patient is started on Cardizem drip for atrial fibrillation with a RVR. Coreg and amiodarone added. Patient recently had echocardiogram done in November 2024. Current cardiac markers unremarkable. # acute UTI- Patient is started on IV antibiotics for acute UTI and elevated WBC count. Low-dose of IV fluids started. # Chronic constipation- treated of soap stud enema , Dulcolax suppository # home medication reconciliation updated in electronic medical record system # Code status discussed with the patient patient wishes to stay DNR DNI. Patient's clinical condition improved he was afebrile and getting discharged to rehab in stable condition. Patient is seen and examined on the day of discharge. Discharge instructions provided to the patient all questions and concerns answered to the best of my professional medical knowledge. General-patient not in any acute distress, alert awake, chronically ill-appe aring, age-appropriate HEENT-atraumatic normocephalic, neck supple without elevated JVD, no thyromegaly or carotid bruit. No lymphadenopathy bilaterally. Eyes-no icterus or pallor seen in eyes Chest-lung crackles present to auscultation bilaterally, breathing nonlabored no tachypnea, no wheezing, Heart-S1-S2 normal, regular heart rate no murmur Abdomen bowel sounds positive on auscultation, soft nondistended nontender no guarding, no rigidity Skin no active skin rash, Neurology-grossly intact, nonfocal alert awake Extremity- no pedal edema able to move all 4 extremities Psychiatry - patient is not confused or agitated cooperated during physical examination *Problems/Diagnosis: (1) Atrial fibrillation with RVR Status: Acute Total Time Spent on D/C: > 30 Minutes Date of Service: Feb 13, 2025 Billing Provider: TARA HERNANDEZ MD Common Visit Codes: 49067-AMB/OBS DISCH DAY >30min TARA HERNANDEZ MD Feb 13, 2025 20:07
== END 2025-02-13 17:53 | DRG 690 ==
LOC: ER 11:02 → ED HOLD 17:33 → PCU 3S 20:31
PROVIDERS: ADMIT Internal Medicine; ATTEND Internal Medicine
PROC: BW211ZZ Computerized Tomography (CT Scan) of Abdomen and Pelvis using Low Osmolar Contrast (ICD-10-PCS; principal; 2025-02-11)
DX: N39.0 Urinary tract infection, site not specified (principal); I50.22 Chronic systolic (congestive) heart failure; R65.10 Systemic inflammatory response syndrome (SIRS) of non-infectious origin without acute organ dysfunction; I11.0 Hypertensive heart disease with heart failure; Z66 Do not resuscitate; E78.00 Pure hypercholesterolemia, unspecified; I48.91 Unspecified atrial fibrillation; I25.10 Atherosclerotic heart disease of native coronary artery without angina pectoris; K59.09 Other constipation; J44.9 Chronic obstructive pulmonary disease, unspecified; Z90.49 Acquired absence of other specified parts of digestive tract
CPT/HCPCS: 36415; 71045; 74018; 74177; 76700; 80048; 80053; 81001; 83605; 83880; 84145; 84484; 85025; 85651; 87040; 87081; 87088; 92508; 92616; 93005; 94640; 94760; 96361; 96365; 97161; 99285; A6213; A6590; C1758; G0378; J0696; J0780; J1644; J1885; J2405; J2765; J3490; J7030; J7040; J7512; Q9967

== ENCOUNTER 2025-02-22 03:35 | Emergency (ER) | payer OTHER, MEDICARE, MEDICAID ==
[~2025-02-22] VITALS: Ht 172.7 cm; Wt 89.0 kg
[~2025-02-22 03:35] MED LIST changes: +APIX5TAB3 PO; -BISA10SU60 RC; +DILT180T11 PO; -FAMO20TA8 PO; -HYDR-3686 PO; +MORP-92 PO; -MORP30TA PO; -NITR0.4T SL; -ONDA-103 PO; -POLY119P2 PO; +[UNRECOGNIZED DRUG - OTHER] PO
--- NOTE | 2025-02-22 03:50 | Physician Documentation ---
History of Present Illness Chief Complaint: See Chief Complaint Stated Complaint: PAIN MANAGEMENT Time Seen by MD: 03:49 OK to notify your PCP?: Yes Primary Medical Doctor: [facility] CLINIC Source: patient, RN/MD, EMS, RN notes reviewed, correction records, old records, other (Spoke to the nurse at the nursing facility) Mode of Arrival: EMS Exam Limitations: no limitations HPI BED 4 This patient is an 84 y/o male BIBEMS to ED for chief complaint of nausea and vomiting. Patient comes to us from [facility] where he is a DNR on comfort care. Patient reportedly all day today has been feeling increasingly unwell with body aches, chills, nausea, and vomiting. He describes these symptoms as coming on in waves during which he will also become pale and diaphoretic. Patient is not conserved and per nurse, he has adequate mental capacity to make his own medical decisions. It was reported that he was requesting to come to ED. There is a report that patient was receiving morphine 1x/day vs. 3x/day; the paramedics state that they were told patient has Rx for 3x/day but when speaking with the patient's nurse over the phone, she states that patient has not been under-dosed but has been receiving his morphine as prescribed. Patient was asked but states he is not sure how much morphine he has been receiving. Patient denies any associated symptoms at this time. Patient denies any alleviating or exacerbating factors. Medication Reconciliation Allergies: Coded Allergies: No Known Allergies (Unverified , 08/03/23) Scheduled Amiodarone Hcl (Cordarone), 1 TAB PO DAILY, (Reported) Apixaban (Eliquis), 1 TAB PO BID, (Reported) Aspirin (Aspirin EC), 1 TAB PO DAILY, (Reported) Atorvastatin Calcium (Atorvastatin Calcium), 1 TAB PO HS, (Reported) Azithromycin (Zithromax), 1 TAB PO DAILY, (Reported) Carvedilol (Carvedilol), 1 TAB PO BID, (Reported) Cholecalciferol (Vitamin D), 1 CAP PO DAILY, (Reported) Cranberry Fruit (Cranberry), 2 TAB PO HS, (Reported) Diltiazem HCl (Diltiazem HCl), 1 TAB PO Q6H, (Reported) Docusate Sodium (Colace), 1 CAP PO Q12H, (Reported) Duloxetine Hcl* (Cymbalta*), 1 CAP PO DAILY, (Reported) Ipratropium/Albuterol Sulfate (Duoneb 2.5-0.5 Mg/3 Ml Soln), 1 VIAL NEB Q12H, (Reported) Morphine Sulfate (Morphine Sulfate Er), 1 TAB PO TID, (Reported) Omeprazole (Omeprazole), 1 CAP PO HS, (Reported) Polyethylene Glycol 3350 (Miralax), 17 GM PO HS, (Reported) Prednisone* (Prednisone*), 2 TAB PO DAILY, (Reported) Sennosides (Senna), 2 TAB PO HS, (Reported) [[place] Cream], 1 APPLIC TOP Q12H, (Reported) [MVTminerals], 1 TAB PO DAILY, (Reported) Scheduled PRN Acetaminophen (Tylenol), 2 CAP PO Q6H PRN PRN for pain, (Reported) Calcium Carbonate* (Oscal*), 600 MG PO Q4H PRN for indigestion/dyspepsia, (Reported) Carboxymethylcellulose Sodium (Artificial Tears), 2 DROP EACHEYE Q6H PRN for dry eyes, (Reported) Nitroglycerin SL* (Nitrostat SL*), 1 TAB SL Q5MIN PRN for Chest pain Q5min PRNx3-call MD, (Reported) [Dulcolax Supp], 10 MG RC DAILY PRN for constipation, (Reported) Discontinued Medications Diltiazem HCl (Diltiazem ER), 1 TAB PO DAILY, (Reported) Discontinued Reason: Other Past Medical History Past Medical History: Seizures, Atrial Fibrillation, High Cholesterol, Hypertension, COPD, Sleep Apnea, Pancreatitis, Chronic Pain, Chronic Back Pain Past Surgical History: orthopedic surgeries, other Other Past Surgical History: Angiogram, Marci Placement Patient History: (CAD) Coronary arteriosclerosis FATHER, Onset:60 years & older (CHF) Congestive heart failure FATHER, Onset:60 years & older (CVA) Cerebrovascular accident MOTHER, Onset:60 years & older Alzheimer's disease MOTHER, Onset:60 years & older Other Past Family History: NONCONTRIBUTORY Smoking Status: Unknown if ever smoked Alcohol Use: Sober Drug Use: none Lives with: Alone Lives In: Home Occupation: retired Review of Systems All Other Systems at this time: Reviewed and Negative Constitutional: Reports: see HPI Physical Exam Vital Signs: MINDA Vital Signs have been reviewed: Yes, Source: Oral, Heart Rate: 61, Respiratory Rate: 16, BP: 128/84, Pulse Oximetry: 98, Weight: 89.000 Oxygen Flow Rate: 2.0 Physical Exam General: Actively vomiting at the bedside bilious fluid. Mild distress secondary to pain. Nontoxic appearing. Skin: Pale. Skin otherwise warm and dry with no rashes. HEENT: Head was normocephalic and atraumatic. Eyes - pupils equal, round, reactive to light and accommodation. Extraocular movements were intact. Conjunctivae were nonicteric. The mouth and oropharynx were clear with moist mucous membranes. There were no pharyngeal exudates or erythema. Neck: Supple and nontender. There was no jugular venous distention, lymphadenopathy, thyromegaly or masses. Chest: Clear to auscultation bilaterally without wheezes, rales or rhonchi. No accessory muscle use. No dullness to percussion. Heart: Irregularly irregular. S1, S2. No murmurs. Palpation of the chest wall was normal. No rubs or thrills. Abdomen: Soft, nontender and nondistended. Positive bowel sounds. No guarding or rebound. No hepatosplenomegaly or palpable masses. Extremities: No cyanosis, clubbing or edema. The patient moves all extremities. Pulses were equal and symmetric. Neurologic: Cranial nerves II-XII were intact. Sensation was intact to light touch throughout. Motor strength was 5/5 in all four extremities. Deep tendon reflexes were intact in both upper and lower extremities. Psychologic: The patient was oriented to person, place and time. The patient demonstrated appropriate judgement and insight. Progress Progress Note Assumed care of patient from Dr. Goodman. Patient not feeling well over the last day. Was just awaiting results of CT scan. Labs otherwise unremarkable. CT scan shows bilateral pneumonia. Patient with a history of COPD. Discussed with patient who is well-appearing and alert. We will send him back to the correction on a Z-Sandro. Gave 1st dose today. He is to follow up with his physician in a week or return here if new or worsening symptoms prior to follow-up. Discharging in good condition. Results/Orders Reviewed/noted all lab results: Yes Results/Orders Vital Signs 02/22/25 03:39 Pulse 61 Resp 16 B/P (MAP) 128/84 Pulse Ox 98 O2 Flow Rate 2.0 Re-Evaluation Re-Evaluation : Re-Evaluation: Improved Progress Patient was seen and examined. Patient is given reassurance. Patient is started vomiting when he arrived in the ER. His abdomen appeared soft. He he was having symptoms consistent with withdrawals such as diaphoresis aches pains nausea vomiting. However it is unclear whether he has received his medications specifically morphine narcotics as prescribed or not different information was provided. Assuming that he is receiving his medications on time the patient is then had laboratory work performed in the CBC is reassuring without leukocytosis no anemia. Chemistry is also within normal limits slight CO2 retention with a level of 32.1 glucose is 117 lactic acid 1.7 lipase 14. There was no electrolyte abnormalities chemistries within normal limits patient is feeling much better. Chest x-ray did not show any infiltrates. Patient was placed on a monitor. His vitals were also reassuring. However patient still states he is feeling a bit ill. CT scan was then ordered. Patient is signed out to the morning physician for possible admission for patient of advanced age high-risk factors as well as comorbidities and generalized weakness. Continuous ekg monitor interpretation shows rate controlled AFib heart rate 70s, no ectopy, normal, my interpretation. Pulse oximetry monitor interpretation shows normal oxygenation at 98% on 2 L oxygen. EKG/XRAY/CT/US/VASC/MRI EKG : Additional Comment [address] [address] ELECTROCARDIOGRAM Patient: NATALI HOUGH Medical Record: [id number] [facility] : 1940, Age: 84Sex: M Location: ER Patient Status: REG ER Service Date/Time: [id number] Ordering Physician: ANTHONY GOODMAN MD Exam Name: ELECTROCARDIOGRAM Technologist: [facility] Test Date: 2025-02-22 Test Time: 04:03:55 Pat Name: NATALI HOUGH Department: [facility]- Patient ID: [facility]-[id number] Room: Gender: M Manager Council: : 1940 Requested By: ANTHONY GOODMAN Order Number: [id number] Reading MD: Dr. Anthony Goodman Measurements Intervals [place] Rate: 105 P: 0 OK: 0 QRS: -78 QRSD: 122 T: 84 QT: 377 QTc: 499 Interpretive Statements Atrial fibrillation Ventricular premature complex Left bundle branch block Electronically Signed On 02-22-2025 4:58:[address] Anthony Goodman Please click the below link to view image of tracing. EKG Date and Time:02/22/25402 Electronically Signed by: ANTHONY GOODMAN MD Date and Time: 02/22/25 0458 NO PRIMARY CARE PROVIDER~ cc: ~ Medical Decision Making Additional info obtained from: old records Differential Dx:Considerations: Include: Bowel obstruction, Cholangitis, Cholelithasis, Constipation, Diverticular disease, Esophagitis, Gastritis/PUD, Gastroenteritis, GI hemorrhage, Hernia, Hepatitis, Inflammatory BD, Ischemic bowel, Pancreatitis, Urinary obstruction, Urinary tract infection, Urolithiasis, Other Departure Disposition: 01 HOME / SELF CARE / HOMELESS Impression: Primary Impression: Nausea & vomiting Qualified Codes: R11.14 - Bilious vomiting Additional Impression: Pneumonia Qualified Codes: J18.9 - Pneumonia, unspecified organism Condition: Stable Discharge Instructions: Community-Acquired Pneumonia, Adult, [id number], Vomiting, Adult Referrals: NO PRIMARY CARE PROVIDER (PCP) Education Educated: Patient Educated regarding: diagnosis, treatment, prognosis, need for follow up, other Additional Comment Follow-up with your doctor in the next week. Return if new or worsening symptoms prior to follow-up. Complete your antibiotics. Signature Scribe Signature: Scribed for Anthony Goodman MD by Tamra Gasca . 02/22/25 03:53 Attestation: The note accurately reflects work and decisions made by me.Anthony Goodman MD 02/22/25 03:49 ANTHONY GOODMAN MD Feb 22, 2025 03:50 VICKY BURCH MD Feb 22, 2025 09:48
--- NOTE | 2025-02-22 04:05 | ELECTROCARDIOGRAPH REPORT ---
[facility] Test Date: 2025-02-22 Test Time: 04:03:55 Pat Name: NATALI HOUGH Department: [facility]- Patient ID: [facility]-[id number] Room: Gender: M Academic Vice President: : 1940 Requested By: ANTHONY BURDICK Order Number: [id number] Reading MD: Dr. Anthony Burdick Measurements Intervals [place] Rate: 105 P: 0 AL: 0 QRS: -78 QRSD: 122 T: 84 QT: 377 QTc: 499 Interpretive Statements Atrial fibrillation Ventricular premature complex Left bundle branch block Electronically Signed On 02-22-2025 4:58:[address] Anthony Burdick Please click the below link to view image of tracing.
[2025-02-22] MEDS: ondansetron/PF 4mg/2ml inj IV ONE (04:25)
[2025-02-22] MEDS: normal saline 1000ml 1,000 ML IV ONE ×2 (04:29→07:33)
--- NOTE | 2025-02-22 05:05 | RADIOLOGY REPORT ---
CHEST RADIOGRAPH Indication: vomiting Technique: Single frontal view of the chest was obtained COMPARISON: DI CHEST,SINGLE VIEW on DOS: 02/11/25, DI CHEST,SINGLE VIEW on DOS: 12/10/24, DI CHEST,SING LE VIEW on DOS: 12/03/24, DI CHEST,SINGLE VIEW on DOS: 12/01/24, DI CHEST,SINGLE VIEW on DOS: 08/03/23 FINDINGS: Lines and Tubes: None Lungs: Mild increased interstitial prominence Pleura: No effusion. No pneumothorax. Cardiomediastinal contours: Cardiomegaly Bones: Unremarkable IMPRESSION: Mild pulmonary vascular congestion
[2025-02-22 05:51] LABS: MEAN PLATELET VOLUME 7.0 FL (7.4-10.4); RED CELL DISTRIBUTION WIDTH 16.4 % (11.5-14.5)
[2025-02-22 06:14] LABS: CREATININE 0.80 MG/DL (0.60-1.10); TOTAL CARBON DIOXIDE 32.1 MMOL/L (24-32); eCRCL 67 ML/MIN; eGFR > 90 ML/MIN
--- NOTE | 2025-02-22 09:25 | RADIOLOGY REPORT ---
Exam: CT CT ABDOMEN PELVIS History: ABD PAIN Comparison Study: CT CT ABDOMEN PELVIS W/ IV CONTRAST on DOS: 02/11/25 Technique: Multidetector spiral CT of the abdomen and pelvis was performed from lung bases to pubic s ymphysis. Imaging was performed without intravenous contrast. Coronal and sagittal multiplanar reform ats were obtained from the axial data set by the technologist. Radiation Dose : 1. Abdomen/Pelvis: CTDIvol 23.0 mGy, DLP 1340.09 mGy*cm. Findings: Evaluation of vasculature and solid organs is limited due to lack of intravenous contrast use. Lung Bases: Bilateral lower lobe consolidations. Visualized portions of the heart and pericardium are unremarkable. Liver: The liver is normal in size. No focal lesions. Gallbladder and Biliary Tree: The gallbladder is absent. There is a percutaneous drain with the tip c oiled in the gallbladder fossa. No fluid collection. No intrahepatic or extrahepatic biliary ductal d ilatation. Spleen: Unremarkable Pancreas: The pancreas is grossly unremarkable. Adrenal Glands: Unremarkable Kidneys: Kidneys are unremarkable without calculi or hydronephrosis. GI tract: The stomach is grossly normal in appearance. No evidence of small bowel wall thickening or abnormal dilatation to suggest bowel obstruction. Sigmoid diverticulosis without acute diverticulitis . No appendicitis. Peritoneum/mesentery/retroperitoneum. No evidence of free intraperitoneal air. No ascites. No evidenc e of suspicious lymphadenopathy. Abdominal Wall: Unremarkable. Vasculature: The visualized abdominal aorta is normal in size and caliber. Evaluation of abdominal a nd pelvic vessels is limited due to lack of intravenous contrast. Urinary Bladder: Urinary bladder wall thickening measuring up to 4 mm, with small diverticula. There is a 5 mm stone in the left posterolateral urinary bladder. 4 mm stone in the right posterolateral u rinary bladder. Pelvic Organs: Unremarkable Musculoskeletal: No aggressive focal bony lesions, acute fractures or dislocation. Severe left hip yani int space narrowing osteophytes. L1 compression deformity similar to prior study. Old left inferior pubic ramus fracture. Soft tissues: Bilateral fat containing inguinal hernias. IMPRESSION: 1. Urinary bladder wall thickening with small diverticula may represent sequelae of chronic outlet ob struction or chronic cystitis. There are nonobstructive bladder calculi. 2. Cholecystectomy. Percutaneous drain in the gallbladder fossa. No fluid collection. 3. Bilateral lower lobe pneumonia. 4. Sigmoid diverticulosis without acute diverticulitis. 5. Severe left hip osteoarthritis.
[2025-02-22] MEDS ORDERED: AZIT-164 PO (09:45)
[2025-02-22 14:18] VITALS: BP 99/67; PULSE 94; RESP 18; O2SAT 98
[2025-02-23] MEDS ORDERED: DILT60TA PO (09:18)
[2025-02-23] MEDS ORDERED: CARB-268 EACHEYE (09:26)
[2025-02-23] MEDS ORDERED: NITR0.4T51 SL (09:26)
[2025-02-23] MEDS ORDERED: [UNRECOGNIZED DRUG - OTHER] TOP (09:26)
[2025-02-23] MEDS ORDERED: CARV6.2553 PO (09:26)
[2025-02-23] MEDS ORDERED: AZIT-164 PO (09:26)
[2025-02-23] MEDS ORDERED: DULCOLAX SUPP RC (09:26)
[2025-02-23] MEDS ORDERED: AMIO200T76 PO (09:26)
[2025-02-23] MEDS ORDERED: POLY119P2 PO (09:26)
== END 2025-02-22 14:53 | disposition home or self-care (01) ==
LOC: ER 03:35
DX: J18.9 Pneumonia, unspecified organism (principal); R11.2 Nausea with vomiting, unspecified; E78.00 Pure hypercholesterolemia, unspecified; G47.30 Sleep apnea, unspecified; I11.0 Hypertensive heart disease with heart failure; I50.9 Heart failure, unspecified; I48.91 Unspecified atrial fibrillation; I25.10 Atherosclerotic heart disease of native coronary artery without angina pectoris; J44.9 Chronic obstructive pulmonary disease, unspecified
CPT/HCPCS: 36415; 71045; 74176; 80048; 80076; 83605; 83690; 83735; 84484; 85025; 87040; 93005; 96361; 96374; 96375; 99285; J1171; J2405; J7030; A6590